=== PATIENT | male | born 1960 | race Two or more races ===

== ENCOUNTER 2024-10-16 15:39 | Inpatient (IN) | payer OTHER ==
[~2024-10-16] VITALS: Ht 172.7 cm; Wt 71.0 kg
[2024-10-16 16:00] VITALS: PULSE 74; RESP 14; O2SAT 99
--- NOTE | 2024-10-16 16:19 | ED.PDOC ---
GI ASSESSMENT HPI Comments 64 y/o M, CRISTIAN, with PMHx of CAD and liver cirrhosis presents to the ED for CC of GI bleed. EMS reports, patient is coming from home where he complains of hematemesis since, 0800 today (10/16/24). Patient states, that he has been experiencing hematemesis with associated symptoms of lower abdominal pain and chills starting today (10/16/24). Patient relays, his last alcoholic drink to have been x5coxym ago. In route to ED, EMS comments on hypotensive reading of 77/59; 400 mL of IVF were given. Patient denies fever, melena, fatigue, weakness, or faintness. No other symptoms or modifying factors present at this time. Chief Complaint: GI Bleed Time Seen by MD: 16:00 Primary Care Provider: NONE Reviewed Notes: Nurses Notes, Marine Equipment Sales Engineer Notes, Medications, Allergies Allergies: Coded Allergies: Penicillins (Verified Allergy, Severe, 10/16/24) Information Source: Patient, Emergency Med Personnel Mode of Arrival: EMS Timing: Hours Duration: Since onset Prehospital treatment: IVF Quality: None Vomitus: Bright Red Bood Stool: Normal Severity: Moderate Recent: None Recent Hx of: None Pain Location: RLQ, LLQ Modifying Factors: Nothing Associated sign and symptoms: Hematemesis, Abdominal Pain Past Medical History PAST MEDICAL HISTORY: CAD, Liver Surgical History: Denies all surgeries Family History Family History: Unknown Social History Smoker: Non-Smoker Alcohol: Heavy Drugs: Denies Drug Use Lives In: Home Constitutional: denies: chills, diaphoresis, fatigue, fever, malaise, sweats, weakness, others EENTM: denies: blurred vision, double vision, ear bleeding, ear discharge, ear drainage, ear pain, ear ringing, eye pain, eye redness, hearing loss, mouth pain, mouth swelling, nasal discharge, nose bleeding, nose congestion, nose pain, photophobia, tearing, throat pain, throat swelling, voice changes, others Respiratory: denies: cough, hemoptysis, orthopnea, SOB at rest, shortness of breath, SOB with excertion, stridor, wheezing, others Cardiovascular: denies: chest pain, dizzy spells, diaphoresis, Dyspnea on exertion, edema, irregular heart beat, left arm pain, lightheadedness, palpitations, PND, syncope, others Gastrointestinal: reports: abdominal pain, hematemesis; denies: abdomen distended, blood streaked bowels, constipated, diarrhea, dysphagia, difficulty swallowing, melena, nausea, poor appetite, poor fluid intake, rectal bleeding, rectal pain, vomiting, others Genitourinary: denies: burning, dysuria, flank pain, frequency, hematuria, incontinence, penile discharge, penile sore, pain, testicle pain, testicle swelling, urgency, others Neurological: denies: dizziness, fainting, headache, left sided numbness, left sided weakness, numbness, paresthesia, pre-existing deficit, right sided numbness, right sided weakness, seizure, speech problems, tingling, tremors, weakness, others Musculoskeletal: denies: back pain, gout, joint pain, joint swelling, muscle pain, muscle stiffness, neck pain, others Integumetry: denies: bruises, change in color, change in hair/nails, dryness, laceration, lesions, lumps, rash, wounds, others Allergic/Immunocompromised: denies: Difficulty Healing, Frequent Infections, Hives, Itching, others Hematologic/Lymphatic: denies: anemia, blood clots, easy bleeding, easy bruising, swollen glands, others Endocrine: denies: excessive hunger, excessive sweating, excessive thirst, excessive urination, flushing, intolerance to cold, intolerance to heat, unexplained weight gain, unexplained weight loss, others Psychiatric: denies: anxiety, bipolar disorder, depression, hopeless, panic disorder, schizophrenia, sleepless, suicidal, others All Other Systems: Reviewed and Negative Physical Exam General Appearance: Moderate Distress HEENT: Pale Conjuntivae (L), Pale Conjuntivae (R), Pharynx Normal, TMs Normal Neck: Full Range of Motion, Non-Tender, Normal, Normal Inspection Respiratory: Chest Non-Tender, Lungs Clear, No Accessory Muscle Use, No Respiratory Distress, Normal Breath Sounds Cardiovascular: No Edema, No JVD, No Murmur, No Gallop, Normal Peripheral Pulses, Regular Rate/Rhythm Breast Exam: Deferred Gastrointestinal: No Organomegaly, Non Tender, No Pulsatile Mass, Normal Bowel Sounds, Soft Genitalia: Deferred Pelvic: Deferred Rectal: Deferred Extremities: No calf tenderness, Normal capillary refill, Normal inspection, Normal range of motion, Non-tender, No pedal edema Musculoskeletal : Apperance: Normal Neurologic: Alert, drug safety specialist II-XII nml as Tested, Motor Weakness, Normal Affect, Normal Mood, No Sensory Deficits Cerebellar Function: Normal Reflexes: Normal Skin: Dry, Pallor, Warm Lymphatic: No Adenopathy Was a procedure done? Was a procedure done?: No GI differential Dx Differential Diagnosis: GI hemorrhage X-Ray, Labs, Meds, VS Vital Signs Date Time Temp Pulse Resp B/P (MAP) Pulse Ox O2 Delivery O2 Flow Rate FiO2 10/16/24 16:00 98.1 75 16 101/32 (55) 75 98.1 10/16/24 16:00 74 14 99 Room Air* 0 21 10/16/24 15:58 98.4 74 16 97/53 (68) 97 98.4 10/16/24 15:50 75 10/16/24 15:40 98.4 74 16 97/53 (68) 97 98.4 Lab Test 10/16/24 16:22 Range/Units White Blood Count 4.7 4.4-10.8 10^3/uL Red Blood Count 3.25 L 4.5-5.90 10^6/uL Hemoglobin 9.4 L 13.5-17.5 g/dL Hematocrit 27.8 L 41.0-53.0 % Mean Corpuscular Volume 85.7 80.0-100.0 fL Mean Corpuscular Hemoglobin 28.9 28.0-32.0 pg Mean Corpuscular Hemoglobin Concent 33.7 32.0-36.0 g/dL Red Cell Distribution Width 21.6 H 11.8-14.3 % Platelet Count 87 L 140-450 10^3/uL Mean Platelet Volume 7.1 6.9-10.8 fL Neutrophils (%) (Auto) 64.4 37.0-80.0 % Lymphocytes (%) (Auto) 24.3 10.0-50.0 % Monocytes (%) (Auto) 10.0 0.0-12.0 % Eosinophils (%) (Auto) 0.5 0.0-7.0 % Basophils (%) (Auto) 0.8 0.0-2.0 % Neutrophils # (Auto) 3.0 1.6-8.6 10 ^3/uL Lymphocytes # (Auto) 1.1 0.4-5.4 10 ^3/uL Monocytes # (Auto) 0.5 0-1.3 10 ^3/uL Eosinophils # (Auto) 0 0-0.8 10 ^3/uL Basophils # (Auto) 0 0-0.2 10 ^3/uL Nucleated Red Blood Cells 0.1 % Prothrombin Time 15.0 H 9.3-11.8 sec Prothrombin Time INR 1.47 H 0.9-1.15 Activated Partial Thromboplast Time 34.7 H 24.5-34.5 SEC Sodium Level 140 136-145 mmol/L Potassium Level 3.6 3.5-5.1 mmol/L Chloride Level 110 H 98-107 mmol/L Carbon Dioxide Level 23 20-31 mmol/L Anion Gap 7 5-15 Blood Urea Nitrogen 15 9-23 mg/dL Creatinine 0.91 0.700-1.30 mg/dL Glomerular Filtration Rate Calc 95 >90 mL/min BUN/Creatinine Ratio 16.5 10.0-20.0 Serum Glucose 100 74-106 mg/dL Calcium Level 8.2 L 8.7-10.4 mg/dL Total Bilirubin 2.1 H 0.2-1.0 mg/dL Aspartate Amino Transferase (AST) 42 H 13-40 U/L Alanine Aminotransferase (ALT) 18 7-40 U/L Alkaline Phosphatase 84 46-116 U/L Total Protein 6.5 5.7-8.2 g/dL Albumin 2.9 L 3.2-4.8 g/dL Current Medications Medications (Trade) Dose Ordered Sig/Luis Route Start Time Stop Time Status Last Admin Sodium Chloride 500 ml @ 500 mls/hr Q1H ONCE IVB 10/16/24 16:00 10/16/24 16:59 DC 10/16/24 16:36 Pantoprazole Sodium 50 ml @ 10 mls/hr Q5H ONCE IV 10/16/24 16:00 10/16/24 20:59 10/16/24 16:37 The patient's CBC shows anemia with a hemoglobin of 9.4 hematocrit 27.8 The INR is 1.47 The chemistry panel is within normal limits The bilirubin is elevated at 2.1 At this time, the patient was being admitted to the hospitalist The patient is given Protonix has a drip secondary to the GI bleed The CAT scan of the abdomen and pelvis shows: IMPRESSION: Limited noncontrast imaging. Cirrhotic appearing liver with trace ascites. Cholelithiasis with Trace ascites limiting evaluation for acute cholecystitis. Right upper quadrant ultrasound should be considered for further evaluation if there is concern for acute cholecystitis. Moderate amount of fecal material within the colon. Bibasilar atelectasis. Mild cardiomegaly with bibasilar ground-glass opacities which may be from mild pulmonary edema. A GI consult will be obtained. Images Reviewed?: Images reviewed and evaluated by me Time of 1ST Reevaluation: 16:30 Reevaluation 1ST: Unchanged Patient Education/Counseling: Diagnosis, Treatment Family Education/Counseling: No Family Present Departure 1 Departure Time of Disposition: 17:25 Impression: Primary Impression: Cholelithiasis Qualified Codes: K80.20 - Calculus of gallbladder without cholecystitis without obstruction Additional Impressions: Upper GI bleed Liver cirrhosis Qualified Codes: K70.31 - Alcoholic cirrhosis of liver with ascites Severe anemia Disposition: ADMITTED INPATIENT Admit to: [facility] Condition: Fair Critical Care Note Critical Care Time?: Yes (55 min-critical care time only) Stability Stability form required: Yes Unstable for transfer: Telemetry monitoring (Telemetry monitoring required), ED Physician Assesment (Clinical assesment) Heart Score Heart Score: Heart Score Response (Comments) Value History N/A 0 EKG N/A 0 Age N/A 0 Risk Factors N/A 0 Troponin N/A 0 Total 0 I personally scribed for REMY MCCARTHY MD ([email or web address]) on 10/16/24 at 16:19. Electronically submitted by Zuleyka Amado ([email or web address]). REMY MCCARTHY MD Oct 16, 2024 16:19
[2024-10-16 16:35] LABS: Basophils # (auto) 0 10 ^3/uL (0-0.2); Basophils % (auto) 0.8 % (0.0-2.0); Eosinophils # (auto) 0 10 ^3/uL (0-0.8); Eosinophils % (auto) 0.5 % (0.0-7.0); Hematocrit 27.8 % (41.0-53.0); Hemoglobin 9.4 g/dL (13.5-17.5); Lymphocytes # (auto) 1.1 10 ^3/uL (0.4-5.4); Lymphocytes % (auto) 24.3 % (10.0-50.0); Mean Corpuscular Hemoglobin 28.9 pg (28.0-32.0); Mean Corpuscular Hgb Conc. 33.7 g/dL (32.0-36.0); Mean Corpuscular Volume 85.7 fL (80.0-100.0); Monocytes # (auto) 0.5 10 ^3/uL (0-1.3); Neutrophils % (auto) 64.4 % (37.0-80.0); Nucleated Red Blood Cells % 0.1 %; Platelet Count (auto) 87 10^3/uL (140-450); Red Blood Cells 3.25 10^6/uL (4.5-5.90); Red Cell Distribution Width 21.6 % (11.8-14.3); White Blood Cell 4.7 10^3/uL (4.4-10.8)
[2024-10-16] MEDS: SODIUM CHLORIDE 0.9% 500 ML IVB ONE (16:36)
[2024-10-16] MEDS: PANTOPRAZOLE 40mg/50ML NS AE 50 ML IV ONE ×2 (16:37→20:45)
[2024-10-16 16:50] LABS: Alanine Aminotransferase 18 U/L (7-40); Alkaline Phosphatase 84 U/L (46-116); Anion Gap 7 (5-15); BUN/Creatinine Ratio 16.5 (10.0-20.0); Blood Urea Nitrogen 15 mg/dL (9-23); Carbon Dioxide 23 mmol/L (20-31); Glucose 100 mg/dL (74-106); Potassium 3.6 mmol/L (3.5-5.1); Sodium 140 mmol/L (136-145); Total Protein 6.5 g/dL (5.7-8.2)
[2024-10-16 16:51] LABS: INR 1.47 (0.9-1.15); Partial Thromboplastin Time 34.7 SEC (24.5-34.5)
[2024-10-16 16:53] LABS: Albumin 2.9 g/dL (3.2-4.8); Aspartate Aminotransferase 42 U/L (13-40); Bilirubin, Total 2.1 mg/dL (0.2-1.0); Calcium 8.2 mg/dL (8.7-10.4); Chloride 110 mmol/L (98-107)
--- NOTE | 2024-10-16 17:09 | DVH ---
Exam: CT CT AB PEL WO CON-NO ORAL OR IV History: pain Comparison Study: None available at time of dictation. TECHNIQUE: Multidetector CT of the abdomen and pelvis without IV contrast. Axial, coronal and sagitta l multiplanar reformats were obtained from the axial data set by the technologist. Radiation Dose Information: CT Dose: CTDI volume is 12.17 mGy. Dose-length product is 740.35 mGy*cm FINDINGS: Bibasilar atelectasis with mild Bibasilar ground-glass opacities. Mild cardiomegaly. Heavy atheroscl erotic calcification of the coronary arteries. Trace ascites. Cholelithiasis with limited evaluation for pericholecystic edema given Trace ascites. Subtle micronod ular contour of the liver with recanalization of the umbilical vein consistent with cirrhosis. Spleen , pancreas and adrenal glands are unremarkable. Mild bilateral perinephric fat stranding. No hydro nephrosis or renal calculi bilaterally. Ureters an d urinary bladder are unremarkable. Prostate is unremarkable. Limited evaluation of the stomach due to inadequate distention. The small bowel loops are unremarkab le. Appendix is unremarkable. Moderate amount of fecal material within the colon. No evidence of intraperitoneal free air. No evidence of aortic aneurysm. Mild atherosclerotic calcif ication of the aorta and bilateral iliacs. No significant mesenteric lymphadenopathy. Tiny fat containing umbilical hernia. Small fat containing bilateral inguinal hernias. Minimal body w all edema. Diffuse demineralization. No destructive osseous lesions are noted. Anterior wedge deformi ty of T12 of unknown chronicity with mild loss of superior vertebral body height. Superior endplate S chmorl node of L2 and T12. Diffuse demineralization. IMPRESSION: Limited noncontrast imaging. Cirrhotic appearing liver with trace ascites. Cholelithiasis with Trace ascites limiting evaluation for acute cholecystitis. Right upper quadrant u ltrasound should be considered for further evaluation if there is concern for acute cholecystitis. Moderate amount of fecal material within the colon. Bibasilar atelectasis. Mild cardiomegaly with bibasilar ground-glass opacities which may be from mild pulmonary edema.
--- NOTE | 2024-10-16 19:57 | ECG ---
[facility] Test Date: 2024-10-16 Test Time: 15:50:26 Pat Name: PUSHPA BELTRAN Department: ED Room: [address] [place] [address] Gender: M Direct Sales Consultant: JOSE : 1960 Requested By: REMY MCCARTHY Order Number: [id number] Reading MD: Stalin Schneider Measurements Intervals [place] Rate: 75 P: 21 MO: 123 QRS: 25 QRSD: 88 T: -3 QT: 426 QTc: 476 Interpretive Statements Sinus rhythm Borderline T abnormalities, inferior leads Borderline prolonged QT interval Electronically Signed On 10-17-2024 13:18:15 PDT by Stalin Schneider Please click the below link to view image of tracing.
[2024-10-16] MEDS ORDERED: NITROGLYCERIN 0.4 MG SL TAB SL PRN (20:45)
[2024-10-16] MEDS: ALBUMIN 25% 100 ML IV ONE (21:01)
--- NOTE | 2024-10-16 21:02 | DVHHP2 ---
History of Present Illness Reason for Visit: gi bleed History of Present Illness 64-year-old male with a significant past medical bed bound history of cirrhosis (likely secondary to hepatitis C and alcohol use), CAD, fatty liver disease, nephrolithiasis, vertebral fracture, and cholelithiasis, who presents with active oral bleeding, hypotension, and confusion. Per the patients sister, who resides with him and his daughter, the patient began bleeding from the mouth and upper gi bleed around 8:00 AM today. The bleeding has been persistent. Additionally, he has complained of lower abdominal pain, decreased oral intake, and has exhibited episodes of confusion and urinary incontinence. The family reports that the patient recently relocated from [place] approximately five weeks ago and has abstained from alcohol use since the move. In the ED, the patient was found to be hypotensive with a BP of 77/39 and was given a 500 mL IV fluid bolus. Labs revealed anemia (Hgb 9.4), thrombocytopenia (platelets 87,000), elevated INR (1.47), elevated total bilirubin (2.1), AST 42, and creatinine 2.9. CT abdomen/pelvis showed cirrhotic liver with trace ascites, gallstones, constipation, mild atelectasis, and pulmonary edema. Given his active bleeding, coagulopathy, and underlying liver disease, GI was consulted for evaluation of possible variceal bleeding or mucosal source. Platelet transfusion was ordered due to thrombocytopenia in the setting of active bleeding. IV antibiotics initiated for possible spontaneous bacterial peritonitis (SBP) or other infectious complications. Blood cultures were sent. IV proton pump inhibitor therapy started, and serial hemoglobin checks have been ordered. will admit and consult gi Past Medical History see hpi Past Surgical History see hpi above Family History Reviewed, non-contributory to the management of this case. Past Social History The patient lives at home, denies smoking, alcohol or illicit drugs abuse. pt stopped drinking approx 1.5 mo ago Review of Systems Constitutional: No: Fever, Chills, Sweats, Weakness, Malaise, Other Eyes: No: Pain, Vision change, Conjunctivae inflammation, Eyelid inflammation, Other, Redness ENT: No: Ear pain, Ear discharge, Nose pain, Nose discharge, Nose congestion, Mouth pain, Mouth swelling, Throat pain, Throat swelling, Other Respiratory: No: Cough, Dry, Shortness of breath, SOB with excertion, Wheezing, Hemoptysis, Pleuritic Pain, Sputum, Wheezing, Other Cardiovascular: No: Chest Pain, Palpitations, Orthopnea, Paroxysmal Noc. Dyspnea, Edema, Lt Headedness, Other Gastrointestinal: Hematochezia, Other (oral bleeding ); No: Nausea, Vomiting, Abdominal Pain, Diarrhea, Constipation, Melena Genitourinary: No Dysuria, No Frequency, No Incontinence, No Hematuria, No Retention, No Other Musculoskeletal: No: other, neck pain, shoulder pain, arm pain, back pain, hand pain, leg pain, foot pain Skin: No: Rash, Lesions, Jaundice, Bruising, Other Neurological: No: Weakness, Numbness, Incoordination, Change in speech, Confusion, Seizures, Other Allergies: Coded Allergies: Penicillins (Verified Allergy, Severe, 10/16/24) Medications Current Medications Medications Dose Ordered Sig/Luis Route Start Time Stop Time Status Last Admin Dose Admin Ondansetron HCl 4 mg Q4HP PRN IV 10/16/24 20:45 UNV Nitroglycerin 0.4 mg Q5MINP PRN SL 10/16/24 20:45 UNV Ciprofloxacin 200 ml @ 200 mls/hr Q12HR IV 10/16/24 22:00 UNV Metronidazole 100 ml @ 100 mls/hr Q8HR IV 10/16/24 22:00 UNV Exam Vital Signs Vital Signs Date Time Temp Pulse Resp B/P (MAP) Pulse Ox O2 Delivery O2 Flow Rate FiO2 10/16/24 19:35 99.2 77 16 117/48 (71) 98 99.2 10/16/24 16:00 Room Air* 0 21 General Appearance: Alert, Other (cooperative able to answer ) HEENT: Atraumatic, Other (mouth dry with dark blood in mouth) Respiratory: Clear to auscultation, Normal air movement Cardiovascular: Regular rate, Normal S1, Normal S2, No murmurs Abdominal: Normal bowel sounds, Soft, No tenderness, No hepatospenomegaly, No masses Extremities: No clubbing, No cyanosis, No edema, Normal pulses, No tenderness/swelling Skin: No rashes, No breakdown, No significant lesion Neuro: Other (weakness to ble ) Psych/Mental Status: Mental status NL, Mood NL Labs/Xrays CT scan of the abdomen pelvis shows cirrhotic liver trace ascites gallstones co nstipation atelectasis mild cardiomegaly opacities pulmonary edema I reviewed labs, imaging CT scan abdomen pelvis, EKG and all diagnostic studies on this patient from ED records and the medical chart Labs Test 10/16/24 16:22 Range/Units White Blood Count 4.7 4.4-10.8 10^3/uL Red Blood Count 3.25 L 4.5-5.90 10^6/uL Hemoglobin 9.4 L 13.5-17.5 g/dL Hematocrit 27.8 L 41.0-53.0 % Mean Corpuscular Volume 85.7 80.0-100.0 fL Mean Corpuscular Hemoglobin 28.9 28.0-32.0 pg Mean Corpuscular Hemoglobin Concent 33.7 32.0-36.0 g/dL Red Cell Distribution Width 21.6 H 11.8-14.3 % Platelet Count 87 L 140-450 10^3/uL Mean Platelet Volume 7.1 6.9-10.8 fL Neutrophils (%) (Auto) 64.4 37.0-80.0 % Lymphocytes (%) (Auto) 24.3 10.0-50.0 % Monocytes (%) (Auto) 10.0 0.0-12.0 % Eosinophils (%) (Auto) 0.5 0.0-7.0 % Basophils (%) (Auto) 0.8 0.0-2.0 % Neutrophils # (Auto) 3.0 1.6-8.6 10 ^3/uL Lymphocytes # (Auto) 1.1 0.4-5.4 10 ^3/uL Monocytes # (Auto) 0.5 0-1.3 10 ^3/uL Eosinophils # (Auto) 0 0-0.8 10 ^3/uL Basophils # (Auto) 0 0-0.2 10 ^3/uL Nucleated Red Blood Cells 0.1 % Prothrombin Time 15.0 H 9.3-11.8 sec Prothrombin Time INR 1.47 H 0.9-1.15 Activated Partial Thromboplast Time 34.7 H 24.5-34.5 SEC Sodium Level 140 136-145 mmol/L Potassium Level 3.6 3.5-5.1 mmol/L Chloride Level 110 H 98-107 mmol/L Carbon Dioxide Level 23 20-31 mmol/L Anion Gap 7 5-15 Blood Urea Nitrogen 15 9-23 mg/dL Creatinine 0.91 0.700-1.30 mg/dL Glomerular Filtration Rate Calc 95 >90 mL/min BUN/Creatinine Ratio 16.5 10.0-20.0 Serum Glucose 100 74-106 mg/dL Calcium Level 8.2 L 8.7-10.4 mg/dL Total Bilirubin 2.1 H 0.2-1.0 mg/dL Aspartate Amino Transferase (AST) 42 H 13-40 U/L Alanine Aminotransferase (ALT) 18 7-40 U/L Alkaline Phosphatase 84 46-116 U/L Total Protein 6.5 5.7-8.2 g/dL Albumin 2.9 L 3.2-4.8 g/dL Assessment/Plan Assessment/Plan 64-year-old male with decompensated cirrhosis, active GI/mucosal bleeding, thrombocytopenia, hypotension, and acute kidney injury. Active GI/Mucosal Bleeding concern for variceal or coagulopathic source Plan: GI consult fu results Start IV Protonix 80 mg bolus, then infusion Platelet transfusion (goal >50K if bleeding), will provide 1 unit since with acute bleeding Monitor H/H q6h Type and cross for possible PRBC transfusion Maintain BP with cautious fluids and vasopressors if needed acute on chronic Decompensated Cirrhosis with ascites and coagulopathy found on ct scan Plan: Monitor LFTs, INR, platelets daily IV cipro and flagyl since allergy to pcn for SBP prophylaxis no need for Paracentesis since small ascites, if ascites worsens consider Avoid nephrotoxic agents acute Thrombocytopenia likely cirrhosis-related Plan: Transfuse platelets due to active bleeding Monitor daily counts acute Hypotension likely multifactorial: volume depletion, sepsis vs. bleeding Plan: Continue fluid resuscitation cautiously Vasopressors if MAP <65 after fluids Monitor lactate and renal function ordered albumin consider levophed Hepatic Encephalopathy confusion and incontinence Plan: ordered ammonia level fu results consider lactulose once able to take po Monitor mental status chronic problems hep c fatty liver kidney stones back fracture cad liver cirrhosis gallbladder stones FEN/ppx IVF: Cautious resuscitation Monitor BMP, correct electrolytes Hepatic diet, fluid/salt restriction if ascites worsens GI: IV Protonix infusion VTE: Hold anticoagulation due to bleeding risk Fall: Fall precautions due to encephalopathy DISPOSITION Admit to medicine for management of decompensated cirrhosis with active bleeding, thrombocytopenia, and hypotension. GI consult for endoscopy. Monitor hemodynamics and labs closely. Plan discussed with: Patient, Other (mother and sister provided information for pt) My Orders Orders - CIERRA MASON DNP Procedure Category Date Status Time Pantoprazole PHA 10/16/24 Logged 40mg/50ml Ns Ae 20:45 Hemoglobin & LAB 10/17/24 Verified Hematocrit 00:00 Hemoglobin & LAB 10/17/24 Verified Hematocrit 06:00 Hemoglobin & LAB 10/17/24 Verified Hematocrit 12:00 Hemoglobin & LAB 10/17/24 Verified Hematocrit 18:00 Pheresis Platelets BBK 10/16/24 Logged 20:31 Vital Signs LEROY 10/16/24 In Process 20:31 Administer Blood LEROY 10/16/24 In Process Products 20:31 Iron Panel LAB 10/16/24 Logged 20:31 Reticulocyte Count LAB 10/16/24 Logged 20:31 Ferritin LAB 10/16/24 Logged 20:31 Vitamin B12 LAB 10/16/24 Logged 20:31 Folate (Folic Acid) LAB 10/16/24 Logged 20:31 Albumin 25% (Albutein) PHA 10/16/24 Logged 20:45 Admit ADMIT 10/16/24 Transmitted 20:31 Allergies LEROY 10/16/24 In Process 20:31 Code Status CODE 10/16/24 Transmitted 20:31 Ondansetron Hcl PHA 10/16/24 Logged (Zofran) 20:45 Complete Blood Count LAB 10/17/24 Verified 04:00 Comprehensive LAB 10/17/24 Verified Metabolic Panel 04:00 Npo (Nothing By DIET 10/17/24 Transmitted Mouth) Diet Breakfast Condition: Stable [facility] 10/16/24 In Process 20:31 Bedrest With Bathroom [facility] 10/16/24 In Process Privileg 20:31 Sequential [facility] 10/16/24 In Process Compression Device Nitroglycerin PHA 10/16/24 Logged Sublingual (Ntrostat 20:45 Stat Ekg For Chest [facility] 10/16/24 In Process Pain 20:31 Notify Of Changes [facility] 10/16/24 In Process From Base 20:31 Oceanography Teacher For [facility] 10/16/24 In Process 24 Hours 20:31 Emergency Dysrhythmia LEROY 10/16/24 In Process Protocol 20:31 Rhythm Strips Once LEROY 10/16/24 In Process Every Shift 20:31 Oxygen By Nasal RT 10/16/24 Transmitted Cannula 20:31 Ammonia LAB 10/16/24 Logged 20:31 Urinalysis LAB 10/16/24 Logged 20:31 Ciprofloxacin PHA 10/16/24 Logged 400mg/200ml (Cipro Iv) 20:45 Ciprofloxacin PHA 10/16/24 Logged 400mg/200ml (Cipro Iv) 22:00 Metronidazole PHA 10/16/24 Logged 500mg/100ml (Flagyl 22:00 Metronidazole PHA 10/16/24 Logged 500mg/100ml (Flagyl 20:45 Blood Culture DONTE 10/16/24 Logged 20:31 Date of Service: Oct 16, 2024 Billing Provider: CIERRA MASON DNP Common Visit Codes: 88244-[id number] INP/OBS CARE (HIGH), [id number] CARE 30- 74 MIN (Total critical care time: Approximately 45 minutes This critical care time included obtaining a history; examining the patient; pulse oximetry; ordering and review of studies; arranging urgent treatment with development of a management plan; evaluation of patient's response to treatment; frequent reassessment; and, discussions with other providers.) CIERRA MASON DNP Oct 16, 2024 21:02
[2024-10-16] MEDS: CIPROFLOXACIN 400MG/200ML 200 ML IV ONE (21:08)
[2024-10-16 21:10] LABS: % Iron Saturation 14.2 % (20-55)
[2024-10-16] MEDS: metroNIDAZOLE 500MG/100ML 100 ML IV ONE (21:34)
[2024-10-16 21:40] LABS: Ferritin 95.3 ng/mL (22-322); Folate (Folic Acid) 16.05 ng/mL (>5.38)
[2024-10-16 23:09] VITALS: PULSE 81; RESP 23; O2SAT 95
[2024-10-17] VITALS (8 sets, daily range): BP systolic 85–99; BP diastolic 38–49; PULSE 21–90; RESP 14–75; TEMP 98.4–101.1; O2SAT 93–100
[2024-10-17 00:34] LABS: Hematocrit 24.3 % (41.0-53.0); Hemoglobin 8.1 g/dL (13.5-17.5)
[2024-10-17] MEDS: NOREPINEPHRINE 8 MG/250ML KIT 250 ML IV SCH (04:15)
[2024-10-17] MEDS: metroNIDAZOLE 500MG/100ML 100 ML IV SCH (06:09)
[2024-10-17] MEDS: CIPROFLOXACIN 400MG/200ML 200 ML IV SCH (09:04)
[2024-10-17] MEDS: OCTREOTIDE ACETATE 500 MCG in SODIUM CHL 0.9% 99 ML IV SCH (10:25)
[2024-10-17 10:49] LABS: Urine Bacteria FEW /hpf (None Seen); Urine Blood 3+ /uL (Negative); Urine Clarity Clear (Clear); Urine Color Yellow (Yellow); Urine Mucus FEW (None Seen); Urine Protein, UAD Negative (Negative); Urine Specific Gravity 1.019 (1.001-1.035); Urine Squamous Epithelial Cell FEW /hpf (<5); Urine Urobilinogen 4 mg/dL (Negative); Urine WBC 4 /HPF (0-3); Urine pH 5.5 (5.0-9.0)
[2024-10-17 11:39] LABS: Basophils # (auto) 0 10 ^3/uL (0-0.2); Basophils % (auto) 0.4 % (0.0-2.0); Eosinophils # (auto) 0 10 ^3/uL (0-0.8); Eosinophils % (auto) 0.3 % (0.0-7.0); Hematocrit 27.5 % (41.0-53.0); Hemoglobin 9.1 g/dL (13.5-17.5); Lymphocytes # (auto) 0.8 10 ^3/uL (0.4-5.4); Lymphocytes % (auto) 14.2 % (10.0-50.0); Mean Corpuscular Hemoglobin 28.4 pg (28.0-32.0); Mean Corpuscular Volume 86.3 fL (80.0-100.0); Monocytes # (auto) 0.4 10 ^3/uL (0-1.3); Monocytes % (auto) 7.5 % (0.0-12.0); Neutrophils # (auto) 4.3 10 ^3/uL (1.6-8.6); Neutrophils % (auto) 77.6 % (37.0-80.0); Nucleated Red Blood Cells % 0.1 %; Red Blood Cells 3.19 10^6/uL (4.5-5.90); White Blood Cell 5.6 10^3/uL (4.4-10.8)
[2024-10-17 11:59] LABS: Red Cell Distribution Width 21.7 % (11.8-14.3)
[2024-10-17 12:00] LABS: Platelet Count (auto) 72 10^3/uL (140-450)
[2024-10-17 12:01] LABS: Alanine Aminotransferase 20 U/L (7-40); Alkaline Phosphatase 74 U/L (46-116); Anion Gap 9 (5-15); BUN/Creatinine Ratio 13.9 (10.0-20.0); Blood Urea Nitrogen 11 mg/dL (9-23); Carbon Dioxide 21 mmol/L (20-31); Glucose 85 mg/dL (74-106); Potassium 3.7 mmol/L (3.5-5.1); Sodium 138 mmol/L (136-145); Total Protein 6.3 g/dL (5.7-8.2)
[2024-10-17 12:02] LABS: Aspartate Aminotransferase 62 U/L (13-40); Bilirubin, Total 2.6 mg/dL (0.2-1.0); Calcium 8.2 mg/dL (8.7-10.4); Chloride 108 mmol/L (98-107)
--- NOTE | 2024-10-17 13:17 | DVHINCON2 ---
GI Consult Consult Note GI consult note Date of Consultation: 10/17/2024 Chief Complaint: GI bleed Referring Physician: Dr. antonio H&P: 64-year-old male admitted with active oral bleeding, hypotension and confusion Patient has past medical history of cirrhosis, CAD, fatty liver disease, nephrolithiasis, vertebral fracture, cholelithiasis Patient is a poor historian. History from chart, RN, and telephone conversation with daughter Marjan at [phone] Patient complains of mild epigastric pain for the past two days. No nausea or vomiting. Admits to spitting up spots of coffee-grounds No melena or red blood in stool Per patient is status post EGD two weeks ago at [facility] History of alcohol use last used five weeks ago Past Medical History: cirrhosis, CAD, fatty liver disease, nephrolithiasis, vertebral fracture, ch olelithiasis Past Surgical History: Social History: NO smoking, heavy drinking ETOH Family History: Unsure Review of Systems: Constitutional: no fever, chill, weight loss HEENT: no eye pain, no hearing loss, no oral lesion, no scleral icterus Heart: no chest pain, no chest pressure Lung: no cough, no dyspnea with exertion Abdomen: see HPI Physical exam: General: NAD, patient is awake Chest: lung shi clear to auscultation Heart: RRR, no murmur Abdomen: non-distended, no tenderness to palpation, +BS Labs: Labs Test 10/17/24 11:28 10/17/24 08:11 10/16/24 21:15 10/16/24 16:22 Range/Units White Blood Count 5.6 4.4-10.8 10^3/uL Red Blood Count 3.19 L 4.5-5.90 10^6/uL Hemoglobin 9.1 L 13.5-17.5 g/dL Hematocrit 27.5 #L 41.0-53.0 % Mean Corpuscular Volume 86.3 80.0-100.0 fL Mean Corpuscular Hemoglobin 28.4 28.0-32.0 pg Mean Corpuscular Hemoglobin Concent 33.0 32.0-36.0 g/dL Red Cell Distribution Width 21.7 H 11.8-14.3 % Platelet Count 72 L 140-450 10^3/uL Mean Platelet Volume 7.3 6.9-10.8 fL Neutrophils (%) (Auto) 77.6 37.0-80.0 % Lymphocytes (%) (Auto) 14.2 10.0-50.0 % Monocytes (%) (Auto) 7.5 0.0-12.0 % Eosinophils (%) (Auto) 0.3 0.0-7.0 % Basophils (%) (Auto) 0.4 0.0-2.0 % Neutrophils # (Auto) 4.3 1.6-8.6 10 ^3/uL Lymphocytes # (Auto) 0.8 0.4-5.4 10 ^3/uL Monocytes # (Auto) 0.4 0-1.3 10 ^3/uL Eosinophils # (Auto) 0 0-0.8 10 ^3/uL Basophils # (Auto) 0 0-0.2 10 ^3/uL Nucleated Red Blood Cells 0.1 % Sodium Level 138 136-145 mmol/L Potassium Level 3.7 3.5-5.1 mmol/L Chloride Level 108 H 98-107 mmol/L Carbon Dioxide Level 21 20-31 mmol/L Anion Gap 9 5-15 Blood Urea Nitrogen 11 9-23 mg/dL Creatinine 0.79 0.700-1.30 mg/dL Glomerular Filtration Rate Calc 100 >90 mL/min BUN/Creatinine Ratio 13.9 10.0-20.0 Serum Glucose 85 74-106 mg/dL Calcium Level 8.2 L 8.7-10.4 mg/dL Total Bilirubin 2.6 H 0.2-1.0 mg/dL Aspartate Amino Transferase (AST) 62 H 13-40 U/L Alanine Aminotransferase (ALT) 20 7-40 U/L Alkaline Phosphatase 74 46-116 U/L Total Protein 6.3 5.7-8.2 g/dL Albumin 3.0 L 3.2-4.8 g/dL Urine Color Yellow Yellow Urine Clarity Clear Clear Urine pH 5.5 5.0-9.0 Urine Specific [place] 1.019 1.001-1.035 Urine Protein Negative Negative Urine Ketones Trace Negative Urine Blood 3+ H Negative /uL Urine Nitrite Negative Negative Urine Bilirubin Negative Negative Urine Urobilinogen 4 H Negative mg/dL Urine Leukocyte Esterase Negative Negative /uL Urine RBC 132 0 - 3 /hpf Urine Microscopic WBC 4 H 0-3 /HPF Urine Squamous Epithelial Cells Few <5 /hpf Urine Bacteria Few H None Seen /hpf Urine Mucus Few None Seen Urine Glucose Normal Normal mg/dL Ammonia 12 11-32 umol/L Reticulocyte Count (auto) 1.54 H 0.5-1.5 % Prothrombin Time 15.0 H 9.3-11.8 sec Prothrombin Time INR 1.47 H 0.9-1.15 Activated Partial Thromboplast Time 34.7 H 24.5-34.5 SEC Iron Level 32 L 65-175 ug/dL Total Iron Binding Capacity 226 L 250-425 ug/dL Percent Iron Saturation 14.2 L 20-55 % Ferritin 95.3 22-322 ng/mL Vitamin B12 Level 1006 H 211-911 pg/mL Folic Acid 16.05 >5.38 ng/mL Imaging: CT abdomen pelvis IMPRESSION: Limited noncontrast imaging. Cirrhotic appearing liver with trace ascites. Cholelithiasis with Trace ascites limiting evaluation for acute cholecystitis. Right upper quadrant ultrasound should be considered for further evaluation if there is concern for acute cholecystitis. Moderate amount of fecal material within the colon. Bibasilar atelectasis. Mild cardiomegaly with bibasilar ground-glass opacities which may be from mild pulmonary edema. Assessment: GI bleed, possible oral bleeding Liver cirrhosis Thrombocytopenia Cholelithiasis Constipation Plan: Discussed with Dr. Palmer Monitor labs transfuse if hemoglobin less than seven Protonix and Carafate Obtain records of EGD from [facility] Clear liquid diet We will continue to monitor the patient, please page GI services if any signs of active bleeding Plan discussed with patient, RN and hospitalist Thank you for this consult Date of Service: Oct 17, 2024 Billing Provider: SHAISTA HOLLOWAY Common Visit Codes: CONSULT ONLY Consultation Codes: [id number] CONSULT <60MIN SHAISTA HOLLOWAY Oct 17, 2024 13:17
[2024-10-17] MEDS ORDERED: AMPICILLIN INJ 1 GM in SODIUM CHL 0.9% 100 ML IV ONE (16:30)
[2024-10-17] MEDS: SODIUM CHLORIDE 0.9% 500 ML IV ONE ×2 (16:30→22:24)
[2024-10-17] MEDS ORDERED: VANCOMYCIN PER PHARMACY 0 MG IV SCH (16:30)
--- NOTE | 2024-10-17 16:47 | DVHPNRES ---
Progress Note Date Seen: Oct 17, 2024 Resident Creating Document: KASHIF BEE RESIDENT Has the PT tested + for MRSA If YES, has PT been informed?: No Medical Necessity Reason Pt with a Central, PICC or Fol: No Medical Necessity Reason History of Present Illness 64-year-old male with a significant past medical bed bound history of cirrhosis (likely secondary to hepatitis C and alcohol use), CAD, fatty liver disease, nephrolithiasis, vertebral fracture, and cholelithiasis, who presents with active oral bleeding, hypotension, and confusion. Per the patients sister, who resides with him and his daughter, the patient began bleeding from the mouth and upper gi bleed around 8:00 AM today. The bleeding has been persistent. Additionally, he has complained of lower abdominal pain, decreased oral intake, and has exhibited episodes of confusion and urinary incontinence. The family reports that the patient recently relocated from [place] approximately five weeks ago and has abstained from alcohol use since the move. In the ED, the patient was found to be hypotensive with a BP of 77/39 and was given a 500 mL IV fluid bolus. Labs revealed anemia (Hgb 9.4), thrombocytopenia (platelets 87,000), elevated INR (1.47), elevated total bilirubin (2.1), AST 42, and creatinine 2.9. CT abdomen/pelvis showed cirrhotic liver with trace ascites, gallstones, constipation, mild atelectasis, and pulmonary edema. Given his active bleeding, coagulopathy, and underlying liver disease, GI was consulted for evaluation of possible variceal bleeding or mucosal source. Platelet transfusion was ordered due to thrombocytopenia in the setting of active bleeding. IV antibiotics initiated for possible spontaneous bacterial peritonitis (SBP) or other infectious complications. Blood cultures were sent. IV proton pump inhibitor therapy started, and serial hemoglobin checks have been ordered. will admit and consult gi Past Medical History: CAD, fatty liver disease, nephrolithiasis, vertebral fracture, and cholelithiasis Past Surgical History: see hpi above Family History: Reviewed, non-contributory to the management of this case. Past Social History: The patient lives at home, denies smoking, alcohol or illicit drugs abuse. pt stopped drinking approx 1.5 mo ago PN: 10/17/2024 At the point of assessment, patient is altered.Nurse by the bedside. Per report, patient is a heavy alcohol users and has been having hematemesis for the past couple of day. Family members said patient has EGD about 4 weeks ago at [facility], but there is not report of that. Also, patient was noted to have fever with temperature ranging from 101.4, 100.7. Patient's blood culture grew Gram Positive Cocci in chains. Family was at the bedside and gave me more information. According to patient's sister, there is a known family history of thrombocytopenia and they are they bleed easily. Patient's sister also mentioned that patient started bleeding after he was placed on aspirin from [place] 2 weeks ago. He takes aspirin due to CAD which is irreparable due to the underlying cirrhosis. Therefore right now medical management only. Subjective Review of Systems Unable to get information on review of systems as patient is ALOC Objective vital signs Vital Sign Date Time Temp Pulse Resp B/P (MAP) Pulse Ox O2 Delivery O2 Flow Rate FiO2 10/17/24 14:00 99.4 85 18 104/48 (66) 95 99.4 10/17/24 07:20 Nasal Cannula* 3 32 Total Intake and Output 10/16/24 10/16/24 10/17/24 15:00 23:00 07:00 Intake Total 950 ml 818 ml Output Total 0 ml Balance 950 ml 818 ml medications Current Medications Medications Dose Ordered Sig/Luis Route Start Time Stop Time Status Last Admin Dose Admin Ondansetron HCl 4 mg Q4HP PRN IV 10/16/24 20:45 Nitroglycerin 0.4 mg Q5MINP PRN SL 10/16/24 20:45 Ciprofloxacin 200 ml @ 200 mls/hr Q12H IV 10/17/24 09:00 10/17/24 09:04 200 MLS/HR Metronidazole 100 ml @ 100 mls/hr Q8H IV 10/17/24 06:00 10/17/24 14:01 100 MLS/HR Octreotide Acetate 500 mcg/ Sodium Chloride 100 ml @ 10 mls/hr Q10H IV 10/17/24 09:00 10/17/24 10:25 10 MLS/HR Examination General Appearance: AOx1 HEENT: Atraumatic, dried blood in his mouth, smelled of blood Respiratory: Clear to auscultation, Normal air movement Cardiovascular: Regular rate, Normal S1, Normal S2, No murmurs, no chest wall tenderness Abdominal: NO distention, no tenderness, Hepatomegaly Extremities: jaundiced,No clubbing, No cyanosis, No edema, muscle wasting Skin: No rashes, No breakdown, No significant lesion Neuro: altered Psych/Mental Status: Unable to assessed laboratory and microbiology Laboratory Tests 10/17/24 11:28 Test 10/17/24 11:28 Range/Units Serum Glucose 85 74-106 mg/dL Microbiology Date/Time Source Procedure Growth Status 10/16/24 21:15 Blood Blood Culture - Preliminary Resulted Problem List/Assessment/Plan Problem List/Assessment/Plan Assessment Sepsis --> blood pressure 88/38, Vasopressors if MAP <65 after fluids --> Confused --> Chest x-ray r/o aspiration --> bacteremia --> N/S Bolus 1 --> vancomycin and Meropenem Lactic acidosis --> Lactic acid 2.7 --> fluid --> repeat in am Hepatic encephalopathy vs Metabolism encephalopathy --> underlining liver cirrhosis secondary to alcohol abuse ? Active GI/Mucosal Bleeding concern for variceal or coagulopathic source Bleeding seem from gum bleed --> octreotid drip suspecting variceal bleeding, though less likely --> GI consult appreciated for EGD --> Start IV Protonix 40mg Monitor H/H Acute on chronic Decompensated Cirrhosis -->Small Ascites --> Coagulopathy -->MELDNa score: 14 -->Maddrey's discriminant function -->Avoid hepatotoxic medications Severe protein calorie malnutrition -->BMI 19.8 --> Albumin 3 Thrombocytopenia --> Family history --> likely cirrhosis-related --> Likely Aspirin -->Transfuse platelets due to active bleeding --> Monitor daily counts Acute Hypotension likely multifactorial: volume depletion, sepsis vs. bleeding Plan: Continue fluid resuscitation cautiously Vasopressors if MAP <65 after fluids Monitor lactate and renal function ordered albumin consider levophed Back pain --> R/o fracture, X-ray --> Toradol --> PT when stable History of Hepatitis C Fatty liver Kidney stone CAD Gallbladder stones Goal of care discussed for 30 minutes;full code Plan discussed + DR. Randolph Plan discussed with: Patient, Daughter, Other (family) My Orders My Orders Orders - KASHIF BEE RESIDENT Procedure Category Date Status Time * Gi Dvh Mine Surveyor CONS 10/17/24 Transmitted 08:46 Sodium Chl 0.9% PHA 10/17/24 In Process (So... W/Octreotide 09:00 Pantoprazole PHA 10/18/24 Transmitted (Protonix) 10:00 NS PHA 10/17/24 Transmitted 16:30 Vancomycin Per PHA 10/17/24 Transmitted Pharmacy 16:30 Ampicillin Ivpb PHA 10/17/24 Transmitted 16:30 Ampicillin Ivpb PHA 10/17/24 Transmitted 18:00 Ceftriaxone Ivpb PHA 10/18/24 Transmitted Rocephin 09:00 Ceftriaxone Ivpb PHA 10/17/24 Transmitted Rocephin 16:30 CC Plasma Assessment Blood Product Administration S: [id number] Date of Service: Oct 17, 2024 Billing Provider: SANDEE RANDOLPH MD Common Visit Codes: [id number] INP/OBS CARE(HIGH) KASHIF BEE RESIDENT Oct 17, 2024 16:47 SANDEE RANDOLPH MD Oct 17, 2024 22:35
[2024-10-17] MEDS ORDERED: VANCOMYCIN 750MG KIT 100 ML IV SCH ×2 (18:00→21:00)
[2024-10-17] MEDS ORDERED: AMPICILLIN INJ 1 GM in SODIUM CHL 0.9% 100 ML IV SCH (18:00)
--- NOTE | 2024-10-17 18:06 | DVH ---
EXAM: XY CHEST XRAY 1 VIEW TECHNIQUE: Single frontal chest radiograph CLINICAL HISTORY: rule out aspiration COMPARISON: None Findings/Impression: Frontal chest radiograph demonstrates no acute osseous or superficial soft tissue abnormalities. The trachea is midline. The cardiac silhouette and mediastinum are within normal limits. Bibasilar atelectasis, [id number]-[id number]-[id number]. Aspiration is not excluded. No pneumothorax or pleural effusions.
[2024-10-17] MEDS ORDERED: ASPI81CH59 PO (18:32)
[2024-10-17] MEDS ORDERED: ATOR40TA52 PO (18:32)
[2024-10-17] MEDS ORDERED: CARV3.1240 PO (18:33)
[2024-10-17] MEDS ORDERED: MID10T GT (18:37)
[2024-10-17] MEDS ORDERED: FURO20TA3 PO (18:37)
[2024-10-17] MEDS ORDERED: NITR0.4S29 SL (18:37)
[2024-10-17] MEDS ORDERED: CHLO25CA10 PO (18:37)
[2024-10-17] MEDS ORDERED: FER325T PO (18:37)
[2024-10-17] MEDS ORDERED: RANO500T3 PO (18:37)
[2024-10-17] MEDS ORDERED: THI100I IJ (18:37)
[2024-10-17] MEDS ORDERED: FOLITAB22 PO (18:37)
[2024-10-17 18:42] LABS: Hematocrit 27.6 % (41.0-53.0); Hemoglobin 9.3 g/dL (13.5-17.5)
[2024-10-17 19:17] LABS: Lactic Acid w/Reflex 2.7 mmol/L (0.4-2.0)
--- NOTE | 2024-10-17 19:31 | DVH ---
EXAM: XY LUMBAR SPINE 3 VIEW INDICATION: SEVERE BACK PAIN COMPARISON: None TECHNIQUE: 2 views of the lumbar spine were obtained. Findings: There is no evidence of spondylolysis or spondylolisthesis. Age-indeterminate mild wedge-shaped compression fracture of T12. No blastic or lytic lesions are appreciated. No radiopaque foreign bodies. No superficial soft tissue abnormalities. Impression: 1. Age-indeterminate mild wedge-shaped compression fracture of T12.
[2024-10-17] MEDS: cefTRIAXone 1GM/50ML D5W 50 ML IV ONE (20:38)
[2024-10-17] MEDS: MEROPENEM 1GM IVPB 50 ML IV ONE (20:59)
[2024-10-17] MEDS: VANCOMYCIN 750MG KIT 100 ML IV SCH (21:15)
[2024-10-17] MEDS ORDERED: SODIUM CHLORIDE 0.9% 1,000 ML IV SCH (22:00)
[2024-10-17] MEDS: ACETAMINOPHEN 325 MG TAB PO ONE (22:15)
[2024-10-18] VITALS (88 sets, daily range): BP systolic 79–126; BP diastolic 29–68; PULSE 63–90; RESP 8–71; TEMP 97.7–98.6; O2SAT 78–100
[2024-10-18 03:53] LABS: Base Excess -6.3 mmol/L (-2.0-3.0)
[2024-10-18 04:10] LABS: Basophils # (auto) 0 10 ^3/uL (0-0.2); Basophils % (auto) 0.6 % (0.0-2.0); Eosinophils # (auto) 0.2 10 ^3/uL (0-0.8); Eosinophils % (auto) 5.5 % (0.0-7.0); Hematocrit 25.2 % (41.0-53.0); Hemoglobin 8.5 g/dL (13.5-17.5); Lymphocytes # (auto) 0.8 10 ^3/uL (0.4-5.4); Lymphocytes % (auto) 21.2 % (10.0-50.0); Mean Corpuscular Hgb Conc. 33.6 g/dL (32.0-36.0); Mean Corpuscular Volume 86.2 fL (80.0-100.0); Monocytes # (auto) 0.4 10 ^3/uL (0-1.3); Monocytes % (auto) 9.3 % (0.0-12.0); Neutrophils # (auto) 2.4 10 ^3/uL (1.6-8.6); Neutrophils % (auto) 63.4 % (37.0-80.0); Nucleated Red Blood Cells % 0.1 %; Platelet Count (auto) 75 10^3/uL (140-450); Red Blood Cells 2.92 10^6/uL (4.5-5.90); Red Cell Distribution Width 21.6 % (11.8-14.3); White Blood Cell 3.8 10^3/uL (4.4-10.8)
[2024-10-18 04:23] LABS: Alanine Aminotransferase 21 U/L (7-40); Alkaline Phosphatase 63 U/L (46-116); Anion Gap 8 (5-15); BUN/Creatinine Ratio 16.7 (10.0-20.0); Blood Urea Nitrogen 12 mg/dL (9-23); Carbon Dioxide 21 mmol/L (20-31); Potassium 3.6 mmol/L (3.5-5.1); Sodium 139 mmol/L (136-145); Total Protein 5.8 g/dL (5.7-8.2)
[2024-10-18 04:25] LABS: INR 1.58 (0.9-1.15); Partial Thromboplastin Time 40.7 SEC (24.5-34.5)
[2024-10-18 04:27] LABS: Lactic Acid w/Reflex 2.3 mmol/L (0.4-2.0)
[2024-10-18 04:30] LABS: Albumin 2.7 g/dL (3.2-4.8); Aspartate Aminotransferase 82 U/L (13-40); Bilirubin, Total 2.5 mg/dL (0.2-1.0); Calcium 8.1 mg/dL (8.7-10.4); Chloride 110 mmol/L (98-107); Glucose 123 mg/dL (74-106)
[2024-10-18] MEDS: SODIUM CHLORIDE 0.9% 1,000 ML IV ONE (04:51)
[2024-10-18] MEDS: MIDODRINE HCL 10 MG TAB PO SCH (05:51)
--- NOTE | 2024-10-18 06:00 | DVH ---
EXAM: XR Chest, 1 View CLINICAL INDICATION: ACUTE RESP DISTRESS TECHNIQUE: Frontal view of the chest. COMPARISON: XY CHEST XRAY 1 VIEW on DOS: 10/17/24 FINDINGS: LUNGS AND PLEURAL SPACES: Right basilar atelectasis or pneumonia. No pneumothorax. HEART: Unremarkable. No cardiomegaly. MEDIASTINUM: Unremarkable. Normal mediastinal contour. BONES/JOINTS: Unremarkable. No acute fracture. OTHER FINDINGS: . . . IMPRESSION: Right basilar atelectasis or pneumonia.
[2024-10-18] MEDS: MEROPENEM 1GM IVPB 50 ML IV SCH ×2 (06:25→16:07)
--- NOTE | 2024-10-18 06:58 | DVH ---
EXAM: US Abdomen Limited, Right Upper Quadrant CLINICAL INDICATION: cholecystitis TECHNIQUE: Real-time ultrasound of the right upper quadrant with image documentation. COMPARISON: None FINDINGS: LIVER: The liver measures up to 12.5 cm. Coarse appearing echotexture. Correlation for underlying hepatocellular disease is recommended. No intrahepatic bile duct dilation. GALLBLADDER: Cholelithiasis. Negative Roman's sign was reported by the bilingual operator. Gallbladder w all measures 3.8 mm thick. COMMON BILE DUCT: Unremarkable as visualized. No stones. No dilation. Common bile duct measures 0.41 cm in diameter. PANCREAS: Unremarkable as visualized. RIGHT KIDNEY: Right kidney measures up to 9.2 cm. No stones. No hydronephrosis. OTHER FINDINGS: . . IMPRESSION: Cholelithiasis with findings equivocal for acute cholecystitis. If indicated, this can be further ev aluated with HIDA scan.
[2024-10-18] MEDS ORDERED: SODIUM CHLORIDE 0.9% 1,000 ML IV SCH (08:15)
--- NOTE | 2024-10-18 08:55 | DVHPN2 ---
Assessment/Plan Assessment/Plan ICU note 64 M bedbound with cirrhosis (alcoholic / HCV), CAD admitted for ALOc and oral bleeding, initially treated as UGIB, more hypotensive overnight, transfered to ICU. Seen today during rounds, on low dose levo, GBUS with stones and thickened wall. surgery consult. altered, haldol PRN, non hepatic encephalopathy symptoms. possible still septic. Physical exam AOx2 blood crusted on lips dry mucous membranes uncooperative clear breath sounds s1 s2 rrr no murmur abdomen distended trace LE edema labs ekg imaging reviewed assessment and plan septic vs mixed shock cholelithiasis with possible cholecystitis gpr bacteremia UGIB vs oral bleeding cirrhosis hep C alcohol use CAD lactic acidosis, type I and II severe protein calorie malnutrition thrombocytopenia vertebal fracture c/w levo, maintain MAP >65 transfuse if Hb <7 surgical consult c/w jairon and vanc daily lactate, likely type 2 ISO cirrhosis vs shock follow cult sens GI consult appreciated diet consult pain management monitor H/H plt c/w IV protonix, octreotide diet cardiac dvt ppx hold ISO bleeding gi ppx not indicated 60 minutes critical care time rendered Plan discussed with: Other My Orders Orders - SANDEE RANDOLPH MD Procedure Category Date Status Time Norepinephrine 8 PHA 10/17/24 In Process Mg/250ml Kit 22:45 Transfer Orders XFER 10/17/24 Transmitted 22:45 Midodrine Tablet PHA 10/18/24 In Process (Proamatine Tablet) 06:00 Gallbladder US 10/18/24 Resulted 06:00 * Surgical Consult CONS 10/18/24 Transmitted Insert Midline ORDERS 10/18/24 Verified 08:51 Date of Service: Oct 18, 2024 Billing Provider: SANDEE RANDOLPH MD Common Visit Codes: [id number] CARE 30-74 MIN SANDEE RANDOLPH MD Oct 18, 2024 08:55
[2024-10-18] MEDS ORDERED: cefTRIAXone 1GM/50ML D5W 50 ML IV SCH (09:00)
[2024-10-18] MEDS ORDERED: PANTOPRAZOLE 40 MG/10 ML VIAL INJ IV SCH (10:00)
[2024-10-18] MEDS: PANTOPRAZOLE 40 MG/10 ML VIAL INJ IV SCH (10:07)
[2024-10-18] MEDS: HALOPERIDOL LACTATE 5 MG/ML INJ VIAL IM PRN (10:49)
--- NOTE | 2024-10-18 10:58 | DVHPN2 ---
Progress Note Date Seen: Oct 18, 2024 Resident Creating Document: DANIEL MIRANDA RESIDENT Has the PT tested + for MRSA If YES, has PT been informed?: No Medical Necessity Reason Pt with a Central, PICC or Fol: No Subjective Review of Systems Patient seen and examined at the bedside. Patient is currently altered so unable to obtain complete ROS. No active GI bleed seen. Discontinue octreotide and changed Protonix to IV b.i.d.. Changes from previous H/P or p: No Changes Objective vital signs Vital Sign Date Time Temp Pulse Resp B/P (MAP) Pulse Ox O2 Delivery O2 Flow Rate FiO2 10/18/24 06:45 77 19 117/59 (78) 10/18/24 06:30 98 10/18/24 06:01 Nasal Cannula* 2 28 10/18/24 03:00 98.1 98.1 Total Intake and Output 10/17/24 10/17/24 10/18/24 14:59 22:59 06:59 Intake Total 340 ml 200 ml 597.50 ml Output Total 300 ml Balance 340 ml 200 ml 297.50 ml medications Current Medications Medications Dose Ordered Sig/Luis Route Start Time Stop Time Status Last Admin Dose Admin Ondansetron HCl 4 mg Q4HP PRN IV 10/16/24 20:45 Nitroglycerin 0.4 mg Q5MINP PRN SL 10/16/24 20:45 Vancomycin HCl 0 ml @ 0 mls/hr UD IV 10/17/24 16:30 Meropenem 50 ml @ 17 mls/hr Q8H IV 10/18/24 06:00 10/18/24 06:25 17 MLS/HR Vancomycin HCl 100 ml @ 100 mls/hr Q8H IV 10/17/24 22:00 10/18/24 05:36 100 MLS/HR Norepinephrine Bitartrate 250 ml @ 3.75 mls/hr Q24H IV 10/17/24 22:45 10/18/24 04:15 3.75 MLS/HR Midodrine 10 mg TID@0600,1200,1800 PO 10/18/24 06:00 Pantoprazole Sodium 40 mg BID IV 10/18/24 10:00 10/18/24 10:07 40 MG Haloperidol Lactate 5 mg Q8HP PRN IM 10/18/24 09:30 Examination Pt is lying on bed General Appearance: confused, Not in acute distress HEENT: Atraumatic, Mucous membranes moist/pink Respiratory: Clear to auscultation, Normal air movement, No added sounds Cardiovascular: Regular rate, Normal S1, Normal S2, No murmurs Abdominal: Active bowel sounds, Soft, no distention, no tenderness Extremities: No edema, Normal pulses, No tenderness/swelling Skin: No Significant rash, except past surgical scars Neuro: sensorimotor deficits none Nurse was there as sharperone during examination laboratory and microbiology Laboratory Tests 10/18/24 03:37 Test 10/18/24 03:37 Range/Units Serum Glucose 123 H 74-106 mg/dL Microbiology Date/Time Source Procedure Growth Status 10/16/24 21:15 Blood Blood Culture - Preliminary Resulted Labs and/or images reviewed: Labs reviewed by me, Image(s) reviewed by me Problem List/Assessment/Plan Problem List/Assessment/Plan GI bleed, possible oral bleeding Liver cirrhosis Thrombocytopenia Cholelithiasis with possible acute cholecystitis Constipation PLAN: DC octreotide Monitor labs transfuse if hemoglobin less than seven Protonix 40 mg IV b.i.d. and Carafate Obtain records of EGD from [facility] Clear liquid diet Surgical consult Rest of the management as per ICU or primary team Please page GI services if any signs of active bleeding Thank you so much for the opportunity to consult on your patient. GI team will follow the patient Case an action plan discussed with Dr. Daniela Palmer. Complex care planning needed total 49 minutes of detailed discussion. Plan discussed with: Patient Dietary Evaluation Review Comments: 1. On CL diet, pt not to go >5 days NPO/CL diet only (Currently Day 2) 2. Recommend timely diet progression to Regular diet, may consider 2gm Na restriction if ascities worsens 3. Monitor BMP/lytes and H/H closely, replete to WNL 4. Will add Ensure Clear TID in the interim to enhance nutritional status (provides 240 kcal, 8 gm pro per carton) Expected Outcomes/Goals: Diet progression, improved clinical status. CC Plasma Assessment Blood Product Administration S: [id number] DANIEL MIRANDA RESIDENT Oct 18, 2024 10:58
[2024-10-18 12:00] LABS: Urine Bacteria FEW /hpf (None Seen); Urine Blood Negative /uL (Negative); Urine Clarity Clear (Clear); Urine Color Yellow (Yellow); Urine Mucus FEW (None Seen); Urine Protein, UAD Negative (Negative); Urine Specific Gravity 1.025 (1.001-1.035); Urine Squamous Epithelial Cell FEW /hpf (<5); Urine Urobilinogen Normal (Negative); Urine WBC 2 /HPF (0-3); Urine pH 5.5 (5.0-9.0)
--- NOTE | 2024-10-18 14:21 | DVHINCON2 ---
Date of service: Oct 18, 2024 Family History: FH: thrombocytopenia Allergies: Coded Allergies: Penicillins (Verified Allergy, Severe, 10/16/24) Home Meds Reported Medications Nitroglycerin (NTROSTAT SUBLINGUAL) 0.4 Mg Sl, 0.4 MG SL PRN, TAB *MAY REPEAT EVERY 5 MINUTES X 3 TOTAL IF NO RELIEF, INITIATE ANALGESIC THERAPY. NOTIFY PHYSICIAN *Do not crush. 10/17/24 Midodrine HCl (Midodrine HCl) 10 Mg Tab, 5 MG GT, TAB 10/17/24 Chlordiazepoxide HCl (Chlordiazepoxide Hydrochl) 25 Mg Cap, 25 MG PO, CAP 10/17/24 Thiamine Hcl (THIAMINE HCL) 100 Mg/Ml Inj, 50 MG IJ, INJ 10/17/24 Ranolazine (Ranolazine ER) 500 Mg Tab, 500 MG PO, TAB 10/17/24 Furosemide (Furosemide) 20 Mg Tab, 20 MG PO, TAB 10/17/24 Folic Gvlq-Fnokpyofnv-Kdjtsjnq (Folbic) Tab, 1 TAB PO DAILY, #90 TAB 1 Refill 10/17/24 Ferrous Sulfate (FERROUS SULFATE) 325 Mg Tb, 325 MG PO, TAB 10/17/24 Carvedilol (Carvedilol) 3.125 Mg Tab, 0.5 TAB PO BID, #60 TAB 3 Refills 10/17/24 Atorvastatin Calcium (ATORVASTATIN CALCIUM) 40 Mg Tab, 1 TAB PO DAILY, #30 TAB 5 Refills 10/17/24 Aspirin (Aspirin Low Dose) 81 Mg Chw, 81 MG PO, TAB.CHEW 10/17/24 Current Medications Current Medications Medications (Trade) Dose Ordered Sig/Luis Route PRN Reason Start Time Stop Time Status Last Admin Pantoprazole Sodium (Protonix) 40 mg DAILY IV 10/18/24 10:00 10/18/24 09:29 DC Vancomycin HCl 0 ml @ 0 mls/hr UD IV 10/17/24 16:30 Ampicillin Sodium 1 gm/Sodium Chloride 100 ml @ 200 mls/hr Q6HR IV 10/17/24 18:00 10/17/24 17:41 DC Ceftriaxone Sodium 50 ml @ 100 mls/hr DAILY@09 IV 10/18/24 09:00 10/17/24 19:16 DC Vancomycin HCl 100 ml @ 100 mls/hr Q8H IV 10/17/24 18:00 10/17/24 20:49 DC Meropenem 50 ml @ 17 mls/hr Q8H IV 10/18/24 06:00 10/18/24 06:25 Vancomycin HCl 100 ml @ 100 mls/hr Q8H IV 10/17/24 21:00 10/17/24 20:50 DC Vancomycin HCl 100 ml @ 100 mls/hr Q8H IV 10/17/24 22:00 10/18/24 05:36 Sodium Chloride 1,000 ml @ 150 mls/hr Q6H40M IV 10/17/24 22:00 10/17/24 22:49 DC Norepinephrine Bitartrate 250 ml @ 3.75 mls/hr Q24H IV 10/17/24 22:45 10/18/24 04:15 Midodrine (Proamatine Tablet) 10 mg TID@0600,1200,1800 PO 10/18/24 06:00 10/18/24 11:05 Sodium Chloride 1,000 ml @ 150 mls/hr Q6H40M IV 10/18/24 08:15 10/18/24 09:34 DC Pantoprazole Sodium (Protonix) 40 mg BID IV 10/18/24 10:00 10/18/24 10:07 Haloperidol Lactate (Haldol) 5 mg Q8HP PRN IM AGITATION 10/18/24 09:30 10/18/24 10:49 Vital Signs Vital Signs Date Time Temp Pulse Resp B/P (MAP) Pulse Ox O2 Delivery O2 Flow Rate FiO2 10/18/24 12:30 78 26 99/52 (68) 97 10/18/24 12:00 Room Air* 0 21 10/18/24 09:01 97.7 97.7 Labs/Diagnostic Data Labs Test 10/18/24 13:59 10/18/24 11:10 10/18/24 06:00 10/18/24 03:43 Range/Units Miscellaneous Referred Test ( Tmp Sent to [facility] Urine Color Yellow Yellow Urine Clarity Clear Clear Urine pH 5.5 5.0-9.0 Urine Specific [place] 1.025 1.001-1.035 Urine Protein Negative Negative Urine Ketones Trace Negative Urine Blood Negative Negative /uL Urine Nitrite Negative Negative Urine Bilirubin Negative Negative Urine Urobilinogen Normal Negative mg/dL Urine Leukocyte Esterase Negative Negative /uL Urine RBC 1 0 - 3 /hpf Urine Microscopic WBC 2 0-3 /HPF Urine Squamous Epithelial Cells Few <5 /hpf Urine Bacteria Few H None Seen /hpf Urine Mucus Few None Seen Urine Glucose Normal Normal mg/dL Lactic Acid Level 2.5 *H 0.4-2.0 mmol/L Blood Gas Specimen Type Arterial Blood Gas Sample Site Right radial Blood Gas Patient Temperature 37.0 Arterial Blood Date Drawn [id number] Arterial Blood pH 7.456 H 7.350-7.450 Arterial Blood Partial Pressure CO2 24.0 L 35.0-48.0 mmHg Arterial Blood Partial Pressure O2 88.0 83.0-108.0 mmHg Arterial Blood HCO3 16.5 L 21.0-28.0 mmol/L Arterial Blood Oxygen Saturation 96.4 94.0-98.0 % Arterial Blood Base Excess -6.3 L -2.0-3.0 mmol/L Arterial Blood Oxyhemoglobin 95.8 94.0-98.0 % Arterial Blood Carboxyhemoglobin 0.6 0.5-1.5 % Arterial Blood Methemoglobin 0.0 0.0-1.5 % Michael Test Yes Blood Gas Total Hemoglobin 8.70 L 13.5-17.5 g/dL Blood Gas Liter Flow 1.00 Blood Gas Modality Nasal cannula FiO2 % 24.0 Specimen Drawn By Test 10/18/24 03:37 10/16/24 16:22 Range/Units White Blood Count 3.8 #L 4.4-10.8 10^3/uL Red Blood Count 2.92 L 4.5-5.90 10^6/uL Hemoglobin 8.5 L 13.5-17.5 g/dL Hematocrit 25.2 L 41.0-53.0 % Mean Corpuscular Volume 86.2 80.0-100.0 fL Mean Corpuscular Hemoglobin 29.0 28.0-32.0 pg Mean Corpuscular Hemoglobin Concent 33.6 32.0-36.0 g/dL Red Cell Distribution Width 21.6 H 11.8-14.3 % Platelet Count 75 L 140-450 10^3/uL Mean Platelet Volume 7.7 6.9-10.8 fL Neutrophils (%) (Auto) 63.4 37.0-80.0 % Lymphocytes (%) (Auto) 21.2 10.0-50.0 % Monocytes (%) (Auto) 9.3 0.0-12.0 % Eosinophils (%) (Auto) 5.5 0.0-7.0 % Basophils (%) (Auto) 0.6 0.0-2.0 % Neutrophils # (Auto) 2.4 1.6-8.6 10 ^3/uL Lymphocytes # (Auto) 0.8 0.4-5.4 10 ^3/uL Monocytes # (Auto) 0.4 0-1.3 10 ^3/uL Eosinophils # (Auto) 0.2 0-0.8 10 ^3/uL Basophils # (Auto) 0 0-0.2 10 ^3/uL Nucleated Red Blood Cells 0.1 % Prothrombin Time 16.0 H 9.3-11.8 sec Prothrombin Time INR 1.58 H 0.9-1.15 Activated Partial Thromboplast Time 40.7 H 24.5-34.5 SEC Sodium Level 139 136-145 mmol/L Potassium Level 3.6 3.5-5.1 mmol/L Chloride Level 110 H 98-107 mmol/L Carbon Dioxide Level 21 20-31 mmol/L Anion Gap 8 5-15 Blood Urea Nitrogen 12 9-23 mg/dL Creatinine 0.72 0.700-1.30 mg/dL Glomerular Filtration Rate Calc 103 >90 mL/min BUN/Creatinine Ratio 16.7 10.0-20.0 Serum Glucose 123 H 74-106 mg/dL Calcium Level 8.1 L 8.7-10.4 mg/dL Total Bilirubin 2.5 H 0.2-1.0 mg/dL Aspartate Amino Transferase (AST) 82 H 13-40 U/L Alanine Aminotransferase (ALT) 21 7-40 U/L Alkaline Phosphatase 63 46-116 U/L Ammonia < 10 L 11-32 umol/L Total Protein 5.8 5.7-8.2 g/dL Albumin 2.7 L 3.2-4.8 g/dL Reticulocyte Count (auto) 1.54 H 0.5-1.5 % Iron Level 32 L 65-175 ug/dL Total Iron Binding Capacity 226 L 250-425 ug/dL Percent Iron Saturation 14.2 L 20-55 % Ferritin 95.3 22-322 ng/mL Vitamin B12 Level 1006 H 211-911 pg/mL Folic Acid 16.05 >5.38 ng/mL Microbiology Date/Time Source Procedure Growth Status 10/16/24 21:15 Blood Blood Culture - Preliminary Resulted Assessment PATIENT WITH DOCUMENTED CIRRHOSIS, IS DISORIENTED AND CONFUSED, ABDOMEN NON TENDER, NON DISTENDED, SUSPECT ALCOHOL INDUCED HEPATITIS. RECOMMEN HIDA SCAN AND IF CHOLECYSTITIS IS DOCUMENTED(DOUBT) WOULD SUGGEST CHOLECYSTOSTOMY, NOT A CANDIDATE FOR AN OPERATION AT THIS FACILITY Plan discussed with: Patient, Other ELISA DELGADILLO MD Oct 18, 2024 14:21
[2024-10-18] MEDS: POTASSIUM CHL 20MEQ/50ML 50 ML IV ONE (19:54)
[2024-10-19] VITALS (61 sets, daily range): BP systolic 79–119; BP diastolic 34–61; PULSE 54–84; RESP 11–27; TEMP 97.1–98.3; O2SAT 92–100
[2024-10-19 03:54] LABS: Basophils # (auto) 0 10 ^3/uL (0-0.2); Basophils % (auto) 0.8 % (0.0-2.0); Eosinophils # (auto) 0.4 10 ^3/uL (0-0.8); Eosinophils % (auto) 10.9 % (0.0-7.0); Hematocrit 25.9 % (41.0-53.0); Hemoglobin 8.6 g/dL (13.5-17.5); Lymphocytes # (auto) 0.5 10 ^3/uL (0.4-5.4); Lymphocytes % (auto) 13.5 % (10.0-50.0); Mean Corpuscular Hemoglobin 28.7 pg (28.0-32.0); Mean Corpuscular Hgb Conc. 33.3 g/dL (32.0-36.0); Mean Corpuscular Volume 86.4 fL (80.0-100.0); Monocytes # (auto) 0.3 10 ^3/uL (0-1.3); Monocytes % (auto) 8.9 % (0.0-12.0); Neutrophils # (auto) 2.4 10 ^3/uL (1.6-8.6); Neutrophils % (auto) 65.9 % (37.0-80.0); Nucleated Red Blood Cells % 0.1 %; Platelet Count (auto) 88 10^3/uL (140-450); Red Cell Distribution Width 21.5 % (11.8-14.3); White Blood Cell 3.7 10^3/uL (4.4-10.8)
[2024-10-19 04:04] LABS: Anion Gap 7 (5-15); Carbon Dioxide 21 mmol/L (20-31); Sodium 139 mmol/L (136-145)
[2024-10-19 04:09] LABS: Chloride 111 mmol/L (98-107)
[2024-10-19 04:10] LABS: BUN/Creatinine Ratio 17.3 (10.0-20.0); Blood Urea Nitrogen 14 mg/dL (9-23)
[2024-10-19 04:11] LABS: Glucose 114 mg/dL (74-106); Magnesium 1.7 mg/dL (1.6-2.6)
[2024-10-19 04:12] LABS: Phosphorus 2.6 mg/dL (2.4-5.1)
[2024-10-19] MEDS: SODIUM CHL 0.9% 50 ML IV ONE (07:58)
[2024-10-19 09:39] LABS: Total Protein 5.7 g/dL (5.7-8.2)
[2024-10-19 09:40] LABS: Albumin 2.6 g/dL (3.2-4.8); Bilirubin, Direct 1.1 mg/dL (<0.3); Bilirubin, Total 2.1 mg/dL (0.2-1.0)
--- NOTE | 2024-10-19 11:30 | DVHPN2 ---
Assessment/Plan Assessment/Plan ICU note 64 M bedbound with cirrhosis (alcoholic / HCV), CAD admitted for ALOc and oral bleeding, initially treated as UGIB, more hypotensive overnight, transfered to ICU. Seen today during rounds, seen by surgery, no surgical management at this point. clinically improving. off pressors, downgrade to telemetry Physical exam AOx2 blood crusted on lips dry mucous membranes uncooperative clear breath sounds s1 s2 rrr no murmur abdomen distended trace LE edema labs ekg imaging reviewed assessment and plan septic vs mixed shock cholelithiasis with possible cholecystitis gpr bacteremia UGIB vs oral bleeding cirrhosis hep C alcohol use CAD lactic acidosis, type I and II severe protein calorie malnutrition thrombocytopenia vertebal fracture c/w levo, maintain MAP >65 transfuse if Hb <7 surgical consult c/w jairon and vanc daily lactate, likely type 2 ISO cirrhosis vs shock follow cult sens GI consult appreciated diet consult pain management monitor H/H plt s/p iv protonix and octreotide, switch to iv ppi midodrine diet cardiac dvt ppx hold ISO bleeding gi ppx not indicated 35 minutes critical care time rendered Plan discussed with: Patient My Orders Orders - SANDEE RANDOLPH MD Procedure Category Date Status Time * Wound Consult CONS 10/18/24 Transmitted 12:31 * Dietary Consult CONS 10/18/24 Transmitted 12:31 Mechanical Soft Diet DIET 10/18/24 Transmitted Dinner Communication Order ORDERS 10/18/24 Transmitted 18:27 Magnesium Sulfate PHA 10/19/24 Logged 1gm/100ml 12:00 Transfer Orders XFER 10/19/24 Transmitted 11:05 Date of Service: Oct 19, 2024 Billing Provider: SANDEE RANDOLPH MD Common Visit Codes: [id number] CARE 30-74 MIN SANDEE RANDOLPH MD Oct 19, 2024 11:30
[2024-10-19] MEDS: MAGNESIUM SULFATE 1GM/100ML 100 ML IV SCH (15:02)
--- NOTE | 2024-10-19 15:45 | DVHPN2 ---
Progress Note Date Seen: Oct 19, 2024 Resident Creating Document: DANIEL MIRANDA RESIDENT Has the PT tested + for MRSA If YES, has PT been informed?: No Medical Necessity Reason Pt with a Central, PICC or Fol: No Subjective Review of Systems Patient seen and examined at the bedside. Patient reported mild improvement in his abdominal pain. Patient is currently tolerating diet and advance as he tolerated. Objective vital signs Vital Sign Date Time Temp Pulse Resp B/P (MAP) Pulse Ox O2 Delivery O2 Flow Rate FiO2 10/19/24 13:15 72 20 91/53 (66) 97 10/19/24 12:00 97.9 97.9 10/19/24 12:00 Room Air* 0 N/A Nasal Cannula* Total Intake and Output 10/18/24 10/18/24 10/19/24 14:59 22:59 06:59 Intake Total 80.00 ml 819.065 ml 400.314 ml Output Total 175 ml 300 ml Balance 80.00 ml 644.065 ml 100.314 ml medications Current Medications Medications Dose Ordered Sig/Luis Route Start Time Stop Time Status Last Admin Dose Admin Ondansetron HCl 4 mg Q4HP PRN IV 10/16/24 20:45 Nitroglycerin 0.4 mg Q5MINP PRN SL 10/16/24 20:45 Vancomycin HCl 0 ml @ 0 mls/hr UD IV 10/17/24 16:30 Vancomycin HCl 100 ml @ 100 mls/hr Q8H IV 10/17/24 22:00 10/19/24 06:27 100 MLS/HR Midodrine 10 mg TID@0600,1200,1800 PO 10/18/24 06:00 10/19/24 13:10 10 MG Pantoprazole Sodium 40 mg BID IV 10/18/24 10:00 10/19/24 10:50 40 MG Haloperidol Lactate 5 mg Q8HP PRN IM 10/18/24 09:30 10/18/24 10:49 5 MG Meropenem 50 ml @ 17 mls/hr Q8H IV 10/18/24 16:00 10/19/24 10:48 17 MLS/HR Examination Pt is lying on bed General Appearance: alert, oriented HEENT: Atraumatic, Mucous membranes moist/pink Respiratory: Clear to auscultation, Normal air movement, No added sounds Cardiovascular: Regular rate, Normal S1, Normal S2, No murmurs Abdominal: Active bowel sounds, Soft, no distention, mild tenderness Extremities: No edema, Normal pulses, No tenderness/swelling Skin: No Significant rash, except past surgical scars Neuro: sensorimotor deficits none Nurse was there as sharperone during examination laboratory and microbiology Laboratory Tests 10/19/24 02:54 Test 10/19/24 02:54 Range/Units Serum Glucose 114 H 74-106 mg/dL Microbiology Date/Time Source Procedure Growth Status 10/18/24 11:10 Voided Urine Urine Culture - Preliminary Resulted 10/18/24 06:00 Blood Blood Culture - Preliminary NO GROWTH AFTER 24 HOURS OF INCUBATION. Resulted 10/18/24 05:00 Sputum Gram Stain - Final Resulted 10/18/24 05:00 Sputum Respiratory Culture - Preliminary Resulted 10/18/24 03:10 Nose MRSA Screen - Final Complete Labs and/or images reviewed: Labs reviewed by me, Image(s) reviewed by me Problem List/Assessment/Plan Problem List/Assessment/Plan GI bleed, possible oral bleeding Liver cirrhosis Thrombocytopenia Cholelithiasis with possible acute cholecystitis Constipation PLAN: DC octreotide Monitor labs transfuse if hemoglobin less than seven Protonix 40 mg IV b.i.d. and Carafate Obtain records of EGD from [facility] Clear liquid diet advance as tolerated Surgical consult, advised HIDA scan but patient is not a suitable candidate for surgery at this facility Rest of the management as per ICU or primary team Please page GI services if any signs of active bleeding Continue conservative management for now. Thank you so much for the opportunity to consult on your patient. GI team will follow the patient Case an action plan discussed with Dr. Daniela Palmer. Complex care planning needed total 49 minutes of detailed discussion. Plan discussed with: Patient Dietary Evaluation Review Comments: 1. On CL diet, pt not to go >5 days NPO/CL diet only (Currently Day 2) 2. Recommend timely diet progression to Regular diet, may consider 2gm Na restriction if ascities worsens 3. Monitor BMP/lytes and H/H closely, replete to WNL 4. Will add Ensure Clear TID in the interim to enhance nutritional status (provides 240 kcal, 8 gm pro per carton) Expected Outcomes/Goals: Diet progression, improved clinical status. CC Plasma Assessment Blood Product Administration S: [id number] DANIEL MIRANDA RESIDENT Oct 19, 2024 15:45
[2024-10-19] MEDS: ONDANSETRON HCL 4 MG/2 ML VIAL IV PRN (20:05)
[2024-10-20] VITALS (8 sets, daily range): BP systolic 89–100; BP diastolic 19–54; PULSE 61–85; RESP 16–20; TEMP 97.2–98.4; O2SAT 93–96
[2024-10-20 06:28] LABS: Potassium 3.9 mmol/L (3.5-5.1); Sodium 139 mmol/L (136-145)
[2024-10-20 06:29] LABS: Anion Gap 8 (5-15); Carbon Dioxide 23 mmol/L (20-31)
[2024-10-20 06:34] LABS: BUN/Creatinine Ratio 21.4 (10.0-20.0); Blood Urea Nitrogen 18 mg/dL (9-23)
[2024-10-20 06:35] LABS: Basophils # (auto) 0 10 ^3/uL (0-0.2); Basophils % (auto) 0.7 % (0.0-2.0); Eosinophils # (auto) 0.3 10 ^3/uL (0-0.8); Eosinophils % (auto) 8.2 % (0.0-7.0); Hematocrit 26.3 % (41.0-53.0); Hemoglobin 8.9 g/dL (13.5-17.5); Lymphocytes # (auto) 1.1 10 ^3/uL (0.4-5.4); Lymphocytes % (auto) 30.6 % (10.0-50.0); Mean Corpuscular Hemoglobin 29.4 pg (28.0-32.0); Mean Corpuscular Hgb Conc. 33.9 g/dL (32.0-36.0); Mean Corpuscular Volume 86.7 fL (80.0-100.0); Monocytes # (auto) 0.4 10 ^3/uL (0-1.3); Monocytes % (auto) 10.2 % (0.0-12.0); Neutrophils # (auto) 1.8 10 ^3/uL (1.6-8.6); Neutrophils % (auto) 50.3 % (37.0-80.0); Nucleated Red Blood Cells % 0.5 %; Platelet Count (auto) 102 10^3/uL (140-450); Red Blood Cells 3.04 10^6/uL (4.5-5.90); White Blood Cell 3.6 10^3/uL (4.4-10.8)
[2024-10-20 06:36] LABS: Phosphorus 3.1 mg/dL (2.4-5.1)
[2024-10-20 06:42] LABS: Calcium 8.1 mg/dL (8.7-10.4); Chloride 108 mmol/L (98-107); Glucose 122 mg/dL (74-106)
[2024-10-20 06:48] LABS: Red Cell Distribution Width 21.7 % (11.8-14.3)
--- NOTE | 2024-10-20 09:41 | DVHPN2 ---
Progress Note Date Seen: Oct 20, 2024 Resident Creating Document: DANIEL MIRANDA RESIDENT Has the PT tested + for MRSA If YES, has PT been informed?: No Medical Necessity Reason Pt with a Central, PICC or Fol: No Subjective Review of Systems Patient seen and examined at the bedside. Patient reported mild improvement in his abdominal pain. Patient is currently tolerating diet and advance as he tolerated.Patient's sitter reported that he had some blood in vomiting last night. Changes from previous H/P or p: No Changes Objective vital signs Vital Sign Date Time Temp Pulse Resp B/P (MAP) Pulse Ox O2 Delivery O2 Flow Rate FiO2 10/20/24 08:00 16 94 Room Air* 0 21 10/20/24 05:44 97.7 74 91/44 (60) 97.7 Total Intake and Output 10/19/24 10/19/24 10/20/24 14:59 22:59 06:59 Intake Total 411 ml 300 ml 390 ml Output Total 500 ml 100 ml Balance 411 ml -200 ml 290 ml medications Current Medications Medications Dose Ordered Sig/Luis Route Start Time Stop Time Status Last Admin Dose Admin Ondansetron HCl 4 mg Q4HP PRN IV 10/16/24 20:45 10/19/24 20:05 4 MG Nitroglycerin 0.4 mg Q5MINP PRN SL 10/16/24 20:45 Vancomycin HCl 0 ml @ 0 mls/hr UD IV 10/17/24 16:30 Vancomycin HCl 100 ml @ 100 mls/hr Q8H IV 10/17/24 22:00 10/20/24 06:03 100 MLS/HR Midodrine 10 mg TID@0600,1200,1800 PO 10/18/24 06:00 10/20/24 06:03 10 MG Pantoprazole Sodium 40 mg BID IV 10/18/24 10:00 10/19/24 22:13 40 MG Haloperidol Lactate 5 mg Q8HP PRN IM 10/18/24 09:30 10/18/24 10:49 5 MG Meropenem 50 ml @ 17 mls/hr Q8H IV 10/18/24 16:00 10/19/24 23:49 17 MLS/HR Examination Pt is lying on bed General Appearance: alert, oriented HEENT: Atraumatic, Mucous membranes moist/pink Respiratory: Clear to auscultation, Normal air movement, No added sounds Cardiovascular: Regular rate, Normal S1, Normal S2, No murmurs Abdominal: Active bowel sounds, Soft, no distention, mild tenderness Extremities: No edema, Normal pulses, No tenderness/swelling Skin: No Significant rash, except past surgical scars Neuro: sensorimotor deficits none Nurse was there as sharperone during examination laboratory and microbiology Laboratory Tests 10/20/24 05:28 Test 10/20/24 05:28 Range/Units Serum Glucose 122 H 74-106 mg/dL Microbiology Date/Time Source Procedure Growth Status 10/18/24 11:10 Voided Urine Urine Culture - Preliminary Resulted 10/18/24 06:00 Blood Blood Culture - Preliminary NO GROWTH AFTER 48 HOURS OF INCUBATION. Resulted 10/18/24 05:00 Sputum Gram Stain - Final Resulted 10/18/24 05:00 Sputum Respiratory Culture - Preliminary Resulted 10/18/24 03:10 Nose MRSA Screen - Final Complete Labs and/or images reviewed: Labs reviewed by me, Image(s) reviewed by me Problem List/Assessment/Plan Problem List/Assessment/Plan GI bleed, possible oral bleeding Liver cirrhosis Thrombocytopenia Cholelithiasis with possible acute cholecystitis Constipation PLAN: Patient may need EGD we will decide over the weekend. DC octreotide Monitor labs transfuse if hemoglobin less than seven Protonix 40 mg IV b.i.d. and Carafate Obtain records of EGD from [facility] Clear liquid diet advance as tolerated Surgical consult, advised HIDA scan but patient is not a suitable candidate for surgery at this facility Rest of the management as per ICU or primary team Please page GI services if any signs of active bleeding Continue conservative management for now. Thank you so much for the opportunity to consult on your patient. GI team will follow the patient Case an action plan discussed with Dr. Daniela Palmer. Complex care planning needed total 49 minutes of detailed discussion. Plan discussed with: Patient Dietary Evaluation Review Comments: 1. On CL diet, pt not to go >5 days NPO/CL diet only (Currently Day 2) 2. Recommend timely diet progression to Regular diet, may consider 2gm Na restriction if ascities worsens 3. Monitor BMP/lytes and H/H closely, replete to WNL 4. Will add Ensure Clear TID in the interim to enhance nutritional status (provides 240 kcal, 8 gm pro per carton) Expected Outcomes/Goals: Diet progression, improved clinical status. CC Plasma Assessment Blood Product Administration S: [id number] DANIEL MIRANDA RESIDENT Oct 20, 2024 09:41
[2024-10-20] MEDS: VANCOMYCIN 1GM/200ML PM 200 ML IV SCH (17:18)
--- NOTE | 2024-10-20 17:26 | DVHPN2 ---
Subjective Update 10/20-GI following, patient remains at his baseline A&O X 2,. He was confused requiring sitter one-to-one. Patient apparently had 1 episode of hematemesis this a.m., we will make GI aware. Continue antibiotics as per primary team plan. Ultrasound right upper quadrant was equivocal for acute coli but findings stone match physical exam, surgery following. Continue present treatment plan. Reviewed: H&P Changes from previous H/P or p: No Changes General: Per HPI Eyes: No Pain, No Vision change, No Conjunctivae inflammation, No Eyelid inflammation, No Other, No Redness ENT: No Ear pain, No Ear discharge, No Nose pain, No Nose discharge, No Nose congestion, No Mouth pain, No Mouth swelling, No Throat pain, No Throat swelling, No Other Cardiovascular: No Chest Pain, No Palpitations, No Orthopnea, No Paroxysmal Noc. Dyspnea, No Edema, No Lt Headedness, No Other Respiratory: No Cough, No Dry, No Shortness of breath, No SOB with excertion, No Wheezing, No Hemoptysis, No Pleuritic Pain, No Sputum, No Other Gastrointestinal: No Nausea, No Vomiting, No Abdominal Pain, No Diarrhea, No Constipation, No Melena; Hematochezia, Other (oral bleeding ) Genitourinary: No Dysuria, No Frequency, No Incontinence, No Hematuria, No Retention, No Other Musculoskeletal: No other, No neck pain, No shoulder pain, No arm pain, No back pain, No hand pain, No leg pain, No foot pain Skin: No Rash, No Lesions, No Jaundice, No Bruising, No Other Objective Vitals Vital Signs Date Time Temp Pulse Resp B/P (MAP) Pulse Ox O2 Delivery O2 Flow Rate FiO2 10/20/24 13:00 98.4 69 17 100/54 (69) 95 98.4 10/20/24 08:00 Room Air* 0 21 Intake/Output Intake and Output 10/20/24 07:00 Intake Total 1101 ml Output Total 600 ml Balance 501 ml Intake Oral 600 ml IV Total 501 ml Output Urine Total 600 ml Exam AOx2 blood crusted on lips dry mucous membranes uncooperative clear breath sounds s1 s2 rrr no murmur abdomen distended trace LE edema Medications Current Medications Medications Dose Ordered Sig/Luis Route Start Time Stop Time Status Last Admin Dose Admin Ondansetron HCl 4 mg Q4HP PRN IV 10/16/24 20:45 10/19/24 20:05 4 MG Nitroglycerin 0.4 mg Q5MINP PRN SL 10/16/24 20:45 Vancomycin HCl 0 ml @ 0 mls/hr UD IV 10/17/24 16:30 Midodrine 10 mg TID@0600,1200,1800 PO 10/18/24 06:00 10/20/24 06:03 10 MG Pantoprazole Sodium 40 mg BID IV 10/18/24 10:00 10/19/24 22:13 40 MG Haloperidol Lactate 5 mg Q8HP PRN IM 10/18/24 09:30 10/18/24 10:49 5 MG Meropenem 50 ml @ 17 mls/hr Q8H IV 10/18/24 16:00 10/20/24 15:10 17 MLS/HR Vancomycin HCl 200 ml @ 200 mls/hr Q12H IV 10/20/24 18:00 10/20/24 17:18 200 MLS/HR Laboratory Results Laboratory Tests 10/20/24 05:28 Chemistry Test 10/20/24 05:28 Calcium Level 8.1 mg/dL (8.7-10.4) L Magnesium Level 2.0 mg/dL (1.6-2.6) Phosphorus Level 3.1 mg/dL (2.4-5.1) Urinalysis Test 10/18/24 11:10 Urine Color Yellow (Yellow) Urine Clarity Clear (Clear) Urine pH 5.5 (5.0-9.0) Urine Specific [place] 1.025 (1.001-1.035) Urine Protein Negative (Negative) Urine Ketones Trace (Negative) Urine Blood Negative /uL (Negative) Urine Nitrite Negative (Negative) Urine Bilirubin Negative (Negative) Urine Urobilinogen Normal mg/dL (Negative) Urine Leukocyte Esterase Negative /uL (Negative) Urine RBC 1 /hpf (0 - 3) Urine Microscopic WBC 2 /HPF (0-3) Urine Squamous Epithelial Cells Few /hpf (<5) Urine Bacteria Few /hpf (None Seen) H Urine Mucus Few (None Seen) Urine Glucose Normal mg/dL (Normal) Microbiology Microbiology Date/Time Source Procedure Growth Status 10/18/24 11:10 Voided Urine Urine Culture - Final Complete 10/18/24 06:00 Blood Blood Culture - Preliminary NO GROWTH AFTER 48 HOURS OF INCUBATION. Resulted 10/18/24 05:00 Sputum Gram Stain - Final Resulted 10/18/24 05:00 Sputum Respiratory Culture - Preliminary Resulted 10/18/24 03:10 Nose MRSA Screen - Final Complete Labs and/or images reviewed: Labs reviewed by me, Image(s) reviewed by me Assessment/Plan Assessment/Plan 10/20-GI following, patient remains at his baseline A&O X 2,. He was confused requiring sitter one-to-one. Patient apparently had 1 episode of hematemesis this a.m., we will make GI aware. Continue antibiotics as per primary team plan. Ultrasound right upper quadrant was equivocal for acute coli but findings stone match physical exam, surgery following. Continue present treatment plan. assessment and plan septic vs mixed shock cholelithiasis with possible cholecystitis gpr bacteremia UGIB vs oral bleeding cirrhosis hep C alcohol use CAD lactic acidosis, type I and II severe protein calorie malnutrition thrombocytopenia vertebal fracture Plan off levophed, maintain MAP >65 transfuse if Hb <7 surgical consult c/w jairon and vanc daily lactate, likely type 2 ISO cirrhosis vs shock follow cult sens GI consult appreciated diet consult pain management monitor H/H plt s/p iv protonix and octreotide, switch to iv ppi midodrine DC octreotide diet cardiac dvt ppx - SCDs gi ppx - on Protonix Tele Plan discussed with: Other Date of Service: Oct 20, 2024 Billing Provider: GIFTY SUÁREZ MD Common Visit Codes: [id number] INP/OBS CARE(HIGH) GIFTY SUÁREZ MD Oct 20, 2024 17:26
[2024-10-21] VITALS (8 sets, daily range): BP systolic 91–111; BP diastolic 43–64; PULSE 59–91; RESP 16–18; TEMP 97.9–98.6; O2SAT 92–96
[2024-10-21 07:50] LABS: Basophils # (auto) 0 10 ^3/uL (0-0.2); Basophils % (auto) 1.2 % (0.0-2.0); Eosinophils # (auto) 0.1 10 ^3/uL (0-0.8); Eosinophils % (auto) 4.2 % (0.0-7.0); Hemoglobin 9.5 g/dL (13.5-17.5); Lymphocytes # (auto) 0.7 10 ^3/uL (0.4-5.4); Lymphocytes % (auto) 21.9 % (10.0-50.0); Mean Corpuscular Hemoglobin 29.4 pg (28.0-32.0); Mean Corpuscular Hgb Conc. 32.6 g/dL (32.0-36.0); Monocytes # (auto) 0.4 10 ^3/uL (0-1.3); Monocytes % (auto) 10.9 % (0.0-12.0); Neutrophils # (auto) 2.1 10 ^3/uL (1.6-8.6); Neutrophils % (auto) 61.8 % (37.0-80.0); Nucleated Red Blood Cells % 0.2 %; Platelet Count (auto) 101 10^3/uL (140-450); Red Blood Cells 3.22 10^6/uL (4.5-5.90); Red Cell Distribution Width 22.9 % (11.8-14.3); White Blood Cell 3.4 10^3/uL (4.4-10.8)
[2024-10-21 08:11] LABS: Alanine Aminotransferase 16 U/L (7-40); Alkaline Phosphatase 83 U/L (46-116); Anion Gap 10 (5-15); BUN/Creatinine Ratio 16.4 (10.0-20.0); Blood Urea Nitrogen 12 mg/dL (9-23); Potassium 3.8 mmol/L (3.5-5.1); Sodium 139 mmol/L (136-145); Total Protein 6.2 g/dL (5.7-8.2)
[2024-10-21 08:15] LABS: Albumin 2.9 g/dL (3.2-4.8); Aspartate Aminotransferase 53 U/L (13-40); Calcium 8.4 mg/dL (8.7-10.4); Carbon Dioxide 20 mmol/L (20-31); Chloride 109 mmol/L (98-107); Glucose 117 mg/dL (74-106)
--- NOTE | 2024-10-21 11:29 | DVHPN2 ---
Subjective Update 10/20-GI following, patient remains at his baseline A&O X 2,. He was confused requiring sitter one-to-one. Patient apparently had 1 episode of hematemesis this a.m., we will make GI aware. Continue antibiotics as per primary team plan. Ultrasound right upper quadrant was equivocal for acute coli but findings stone match physical exam, surgery following. Continue present treatment plan. 10/21 - apperas more agitated today. olanzepine start. deescaalte vanc/jairon to vanc/ctx. banana bag, thiaine, folate start. CPT otherwise. banana bag then d5- halfNS because not taking po intake. gi following. recheck ammonia Reviewed: H&P Changes from previous H/P or p: No Changes General: Per HPI Objective Vitals Vital Signs Date Time Temp Pulse Resp B/P (MAP) Pulse Ox O2 Delivery O2 Flow Rate FiO2 10/21/24 09:00 98.0 83 17 94/46 (62) 94 98.0 10/21/24 08:00 Room Air* 0 21 Intake/Output Intake and Output 10/21/24 07:00 Intake Total 290 ml Output Total 450 ml Balance -160 ml Intake Oral 240 ml IV Total 50 ml Output Urine Total 450 ml Exam AOx2 blood crusted on lips dry mucous membranes uncooperative clear breath sounds s1 s2 rrr no murmur abdomen distended trace LE edema Medications Current Medications Medications Dose Ordered Sig/Luis Route Start Time Stop Time Status Last Admin Dose Admin Ondansetron HCl 4 mg Q4HP PRN IV 10/16/24 20:45 10/19/24 20:05 4 MG Nitroglycerin 0.4 mg Q5MINP PRN SL 10/16/24 20:45 Vancomycin HCl 0 ml @ 0 mls/hr UD IV 10/17/24 16:30 Midodrine 10 mg TID@0600,1200,1800 PO 10/18/24 06:00 10/21/24 05:51 10 MG Pantoprazole Sodium 40 mg BID IV 10/18/24 10:00 10/20/24 22:13 40 MG Haloperidol Lactate 5 mg Q8HP PRN IM 10/18/24 09:30 10/18/24 10:49 5 MG Meropenem 50 ml @ 17 mls/hr Q8H IV 10/18/24 16:00 10/21/24 08:41 17 MLS/HR Vancomycin HCl 200 ml @ 200 mls/hr Q12H IV 10/20/24 18:00 10/20/24 17:18 200 MLS/HR Folic Acid 1 mg/ Magnesium Sulfate 8 meq/ Multivitamins 10 ml/Thiamine HCl 100 mg/Sodium Chloride 1,013.2 ml @ 126.247 mls/hr DAILY@1800 INJ 10/21/24 18:00 UNV Thiamine HCl 300 mg DAILY IV 10/22/24 10:00 10/25/24 09:59 UNV Folic Acid 1 mg/ Dextrose 50.2 ml @ 200.8 mls/ hr DAILY INJ 10/22/24 10:00 10/23/24 09:59 UNV Laboratory Results Laboratory Tests 10/21/24 05:57 Chemistry Test 10/21/24 05:57 Albumin 2.9 g/dL (3.2-4.8) L Calcium Level 8.4 mg/dL (8.7-10.4) L Total Protein 6.2 g/dL (5.7-8.2) LFT Test 10/21/24 05:57 Alanine Aminotransferase (ALT) 16 U/L (7-40) Alkaline Phosphatase 83 U/L (46-116) Aspartate Amino Transferase (AST) 53 U/L (13-40) H Total Bilirubin 2.0 mg/dL (0.2-1.0) H Urinalysis Test 10/18/24 11:10 Urine Color Yellow (Yellow) Urine Clarity Clear (Clear) Urine pH 5.5 (5.0-9.0) Urine Specific [place] 1.025 (1.001-1.035) Urine Protein Negative (Negative) Urine Ketones Trace (Negative) Urine Blood Negative /uL (Negative) Urine Nitrite Negative (Negative) Urine Bilirubin Negative (Negative) Urine Urobilinogen Normal mg/dL (Negative) Urine Leukocyte Esterase Negative /uL (Negative) Urine RBC 1 /hpf (0 - 3) Urine Microscopic WBC 2 /HPF (0-3) Urine Squamous Epithelial Cells Few /hpf (<5) Urine Bacteria Few /hpf (None Seen) H Urine Mucus Few (None Seen) Urine Glucose Normal mg/dL (Normal) Microbiology Microbiology Date/Time Source Procedure Growth Status 10/18/24 11:10 Voided Urine Urine Culture - Final Complete 10/18/24 06:00 Blood Blood Culture - Preliminary NO GROWTH AFTER 72 HOURS OF INCUBATION. Resulted 10/18/24 05:00 Sputum Gram Stain - Final Resulted 10/18/24 05:00 Sputum Respiratory Culture - Preliminary Resulted 10/18/24 03:10 Nose MRSA Screen - Final Complete Labs and/or images reviewed: Labs reviewed by me, Image(s) reviewed by me Assessment/Plan Assessment/Plan 10/20-GI following, patient remains at his baseline A&O X 2,. He was confused requiring sitter one-to-one. Patient apparently had 1 episode of hematemesis this a.m., we will make GI aware. Continue antibiotics as per primary team plan. Ultrasound right upper quadrant was equivocal for acute coli but findings stone match physical exam, surgery following. Continue present treatment plan. 10/21 - apperas more agitated today. olanzepine start. deescaalte vanc/jairon to vanc/ctx. banana bag, thiaine, folate start. CPT otherwise. banana bag then d5- halfNS because not taking po intake. gi following. recheck ammonia assessment and plan septic vs mixed shock cholelithiasis with possible cholecystitis gpr bacteremia UGIB vs oral bleeding cirrhosis hep C alcohol use CAD lactic acidosis, type I and II severe protein calorie malnutrition thrombocytopenia vertebal fracture Plan off levophed, maintain MAP >65 transfuse if Hb <7 surgical consult c/w jairon and vanc daily lactate, likely type 2 ISO cirrhosis vs shock follow cult sens GI consult appreciated diet consult pain management monitor H/H plt s/p iv protonix and octreotide, switch to iv ppi midodrine DC octreotide olanzepine start. deescaalte vanc/jairon to vanc/ctx. thiaine, folate start. diet cardiac dvt ppx - SCDs gi ppx - on Protonix Tele Plan discussed with: Other My Orders Orders - GIFTY SUÁREZ MD Procedure Category Date Status Time Folic Acid... PHA 10/21/24 Logged 18:00 Ammonia LAB 10/21/24 Logged 11:20 Thiamine Inj PHA 10/22/24 Logged 10:00 Folic Acid PHA 10/22/24 Logged 10:00 D5w/Sod Chl 0.45% PHA 10/21/24 Logged (D5w 1/2ns) 11:30 Date of Service: Oct 21, 2024 Billing Provider: GIFTY SUÁREZ MD Common Visit Codes: [id number] INP/OBS CARE(HIGH) GIFTY SUÁREZ MD Oct 21, 2024 11:29
[2024-10-21] MEDS: D5W/SOD CHL 0.45% 1,000 ML IV ONE (11:30)
[2024-10-21] MEDS: OLANZapine 5 MG TAB PO ONE (13:11)
[2024-10-21] MEDS: cefTRIAXone 1GM/50ML D5W 50 ML IV ONE (13:11)
--- NOTE | 2024-10-21 13:40 | DVHPN2 ---
Progress Note - Dictate Date Seen: Oct 21, 2024 Has the PT tested + for MRSA If YES, has PT been informed?: No Medical Necessity Reason Pt with a Central, PICC or Fol: No Subjective Patient seen at bedside, sitter in the room Patient continues to be altered although he was able to communicate in full sentences Patient wanted to know what his plan of treatment was and wanted to know when he could go home No further episodes of GI bleeding were reported ; hemoglobin stable 9.5; and LFTs trending down I reviewed records from [facility]. Patient was recently hospitalized in the beginning of the month to [facility] He had elevated troponins and suspected to have a non-STEMI. No EGD was performed at [place] vital signs Vital Sign Date Time Temp Pulse Resp B/P (MAP) Pulse Ox O2 Delivery O2 Flow Rate FiO2 10/21/24 09:00 98.0 83 17 94/46 (62) 94 98.0 10/21/24 08:00 Room Air* 0 21 Total Intake and Output 10/20/24 10/20/24 10/21/24 15:00 23:00 07:00 Intake Total 290 ml Output Total 450 ml Balance -160 ml medications Current Medications Medications Dose Ordered Sig/Luis Route Start Time Stop Time Status Last Admin Dose Admin Ondansetron HCl 4 mg Q4HP PRN IV 10/16/24 20:45 10/19/24 20:05 4 MG Nitroglycerin 0.4 mg Q5MINP PRN SL 10/16/24 20:45 Vancomycin HCl 0 ml @ 0 mls/hr UD IV 10/17/24 16:30 Pantoprazole Sodium 40 mg BID IV 10/18/24 10:00 10/20/24 22:13 40 MG Haloperidol Lactate 5 mg Q8HP PRN IM 10/18/24 09:30 10/18/24 10:49 5 MG Meropenem 50 ml @ 17 mls/hr Q8H IV 10/18/24 16:00 10/21/24 08:00 17 MLS/HR Vancomycin HCl 200 ml @ 200 mls/hr Q12H IV 10/20/24 18:00 10/20/24 17:18 200 MLS/HR Folic Acid 1 mg/ Magnesium Sulfate 8 meq/ Multivitamins 10 ml/Thiamine HCl 100 mg/Sodium Chloride 1,013.2 ml @ 126.247 mls/hr DAILY@1800 INJ 10/21/24 18:00 10/22/24 09:59 Thiamine HCl 300 mg DAILY IV 10/22/24 10:00 10/25/24 09:59 Folic Acid 1 mg/ Dextrose 50.2 ml @ 200.8 mls/ hr DAILY INJ 10/22/24 10:00 10/23/24 09:59 Ceftriaxone Sodium 50 ml @ 100 mls/hr DAILY@09 IV 10/22/24 09:00 Olanzapine 10 mg DAILY PO 10/22/24 10:00 objective General Appearance: Awake alert somewhat agitated HEENT: Atraumatic, Mucous membranes moist/pink Respiratory: Clear to auscultation, Normal air movement, No added sounds Cardiovascular: Regular rate, Normal S1, Normal S2, No murmurs Abdominal: Active bowel sounds, Soft, no distention, mild tenderness Extremities: No edema, Normal pulses, No tenderness/swelling Skin: No Significant rash, except past surgical scars Neuro: Nonfocal laboratory and microbiology Laboratory Tests 10/21/24 05:57 Test 10/21/24 05:57 Range/Units Serum Glucose 117 H 74-106 mg/dL Problems(with codes): (1) Upper GI bleed (2) Liver cirrhosis (3) Cholelithiasis (4) Coagulopathy (5) Pancytopenia (6) Metabolic encephalopathy Prognosis Plan Likely etiology of liver cirrhosis related to previous alcohol use and possible history of hep C We will check a hepatitis panel in a.m., repeat labs and check PT INR and ammonia Meld score is 14 points which has a good prognosis; Maddr discrimination function 25 also suggestive of good prognosis His ammonia level has been normal Unclear etiology of his metabolic encephalopathy Consider getting CT scan of the head I will be standing by for possible endoscopy if the patient has any recurrent episodes of bleeding Recommend a 2D echo and cardiac evaluated mention because of recent history of elevated troponins and suspected non-STEMI at [facility] Dietary Evaluation Review Comments: 1. On CL diet, pt not to go >5 days NPO/CL diet only (Currently Day 2) 2. Recommend timely diet progression to Regular diet, may consider 2gm Na restriction if ascities worsens 3. Monitor BMP/lytes and H/H closely, replete to WNL 4. Will add Ensure Clear TID in the interim to enhance nutritional status (provides 240 kcal, 8 gm pro per carton) Expected Outcomes/Goals: Diet progression, improved clinical status. Plan discussed with: Patient, Other (Sitter) CC Plasma Assessment Blood Product Administration S: [id number] TRUDY SAMSON MD Oct 21, 2024 13:40
[2024-10-21] MEDS: FOLIC ACID 1 MG, MAGNESIUM SULF SDV 50% 8 MEQ, MULTIPLE VITAMIN 10 ML, THIAMINE INJ 100... INJ SCH (18:00)
[2024-10-22] VITALS (9 sets, daily range): BP systolic 98–116; BP diastolic 54–67; PULSE 77–101; RESP 16–60; TEMP 97.6–98.1; O2SAT 92–96
[2024-10-22] MEDS: cefTRIAXone 1GM/50ML D5W 50 ML IV SCH (08:16)
[2024-10-22] MEDS: FOLIC ACID 1 MG in D5W 5% 50 ML INJ SCH (09:40)
[2024-10-22] MEDS: THIAMINE 100mg/ml INJ (200mg/2ml VIAL) IV SCH (09:44)
[2024-10-22] MEDS: OLANZapine 5 MG TAB PO SCH (09:47)
--- NOTE | 2024-10-22 14:53 | DVHPN2 ---
Progress Note Date Seen: Oct 22, 2024 Resident Creating Document: DANIEL MIRANDA RESIDENT Has the PT tested + for MRSA If YES, has PT been informed?: No Medical Necessity Reason Pt with a Central, PICC or Fol: No Subjective Review of Systems Patient seen at bedside, sitter in the room , Patient continues to be altered. He had elevated troponins and suspected to have a non-STEMI. No EGD was performed at [place] Objective vital signs Vital Sign Date Time Temp Pulse Resp B/P (MAP) Pulse Ox O2 Delivery O2 Flow Rate FiO2 10/22/24 13:12 97.7 99 20 105/67 (80) 96 97.7 10/22/24 08:15 Room Air* 0 21 Total Intake and Output 10/21/24 10/21/24 10/22/24 14:59 22:59 06:59 Intake Total 220 ml 290 ml Output Total 500 ml Balance 220 ml -210 ml medications Current Medications Medications Dose Ordered Sig/Luis Route Start Time Stop Time Status Last Admin Dose Admin Ondansetron HCl 4 mg Q4HP PRN IV 10/16/24 20:45 10/19/24 20:05 4 MG Nitroglycerin 0.4 mg Q5MINP PRN SL 10/16/24 20:45 Vancomycin HCl 0 ml @ 0 mls/hr UD IV 10/17/24 16:30 Pantoprazole Sodium 40 mg BID IV 10/18/24 10:00 10/22/24 09:46 40 MG Haloperidol Lactate 5 mg Q8HP PRN IM 10/18/24 09:30 10/22/24 06:18 5 MG Meropenem 50 ml @ 17 mls/hr Q8H IV 10/18/24 16:00 10/22/24 09:53 17 MLS/HR Vancomycin HCl 200 ml @ 200 mls/hr Q12H IV 10/20/24 18:00 10/21/24 17:15 200 MLS/HR Thiamine HCl 300 mg DAILY IV 10/22/24 10:00 10/25/24 09:59 10/22/24 09:44 300 MG Folic Acid 1 mg/ Dextrose 50.2 ml @ 200.8 mls/ hr DAILY INJ 10/22/24 10:00 10/23/24 09:59 10/22/24 09:40 200.8 MLS/HR Olanzapine 10 mg DAILY PO 10/22/24 10:00 10/22/24 09:47 10 MG Ampicillin Sodium 2 gm/Sodium Chloride 100 ml @ 100 mls/hr Q6HR IV 10/22/24 12:00 UNV Examination General Appearance: Awake , confused, agitated HEENT: Atraumatic, Mucous membranes moist/pink Respiratory: Clear to auscultation, Normal air movement, No added sounds Cardiovascular: Regular rate, Normal S1, Normal S2, No murmurs Abdominal: Active bowel sounds, Soft, no distention, mild tenderness Extremities: No edema, Normal pulses, No tenderness/swelling Skin: No Significant rash, except past surgical scars Neuro: Nonfocal laboratory and microbiology Laboratory Tests 10/21/24 05:57 Test 10/21/24 05:57 Range/Units Serum Glucose 117 H 74-106 mg/dL Microbiology Date/Time Source Procedure Growth Status 10/18/24 11:10 Voided Urine Urine Culture - Final Complete 10/18/24 06:00 Blood Blood Culture - Preliminary NO GROWTH AFTER 72 HOURS OF INCUBATION. Resulted 10/18/24 05:00 Sputum Gram Stain - Final Complete 10/18/24 05:00 Sputum Respiratory Culture - Final Complete 10/18/24 03:10 Nose MRSA Screen - Final Complete Labs and/or images reviewed: Labs reviewed by me, Image(s) reviewed by me Problem List/Assessment/Plan Problem List/Assessment/Plan GI bleed, possible oral bleeding Liver cirrhosis Thrombocytopenia Cholelithiasis with possible acute cholecystitis Constipation PLAN: Likely etiology of liver cirrhosis related to previous alcohol use and possible history of hep C Repeat labs and check PT INR and ammonia Meld score is 14 points which has a good prognosis; [place] discrimination function 25 also suggestive of good prognosis His ammonia level has been normal Unclear etiology of his metabolic encephalopathy Consider getting CT scan of the head, neurology consult to check possible stroke Cardiology consult for possible NSTEMI I will be standing by for possible endoscopy if the patient has any recurrent episodes of bleeding Recommend a 2D echo and cardiac evaluated mention because of recent history of elevated troponins and suspected non-STEMI at [facility] Patient is not stable for EGD at this point Thank you so much for the opportunity to consult on your patient. GI team will follow the patient Case an action plan discussed with Dr. Daniela Palmer. Complex care planning needed total 49 minutes of detailed discussion. Plan discussed with: Patient My Orders My Orders Orders - RUBEN,KHAJA RESIDENT Procedure Category Date Status Time Ammonia LAB 10/22/24 Logged 14:24 Comprehensive LAB 10/22/24 Logged Metabolic Panel 14:24 Dietary Evaluation Review Comments: 1. On CL diet, pt not to go >5 days NPO/CL diet only (Currently Day 2) 2. Recommend timely diet progression to Regular diet, may consider 2gm Na restriction if ascities worsens 3. Monitor BMP/lytes and H/H closely, replete to WNL 4. Will add Ensure Clear TID in the interim to enhance nutritional status (provides 240 kcal, 8 gm pro per carton) Expected Outcomes/Goals: Diet progression, improved clinical status. CC Plasma Assessment Blood Product Administration S: [id number] DANIEL MIRANDA RESIDENT Oct 22, 2024 14:53
--- NOTE | 2024-10-22 20:52 | DVHPN2 ---
Assessment/Plan Assessment/Plan ICU note 64 M bedbound with cirrhosis (alcoholic / HCV), CAD admitted for ALOc and oral bleeding, initially treated as UGIB, more hypotensive overnight, transfered to ICU. Seen today during rounds, seems like ing, covering ampicilin iso GPR in culture, covering empirically for listeria Physical exam AOx2 blood crusted on lips dry mucous membranes uncooperative clear breath sounds s1 s2 rrr no murmur abdomen distended trace LE edema labs ekg imaging reviewed assessment and plan septic vs mixed shock metabolic toxic encep, cannot r/o listeria meningitis cholelithiasis with possible cholecystitis gpr bacteremia UGIB vs oral bleeding cirrhosis hep C alcohol use CAD lactic acidosis, type I and II severe protein calorie malnutrition thrombocytopenia vertebal fracture c/w levo, maintain MAP >65 transfuse if Hb <7 surgical consult c/w jairon and vanc add ampicilin daily lactate, likely type 2 ISO cirrhosis vs shock follow cult sens GI consult appreciated diet consult pain management monitor H/H plt s/p iv protonix and octreotide, switch to iv ppi midodrine IR for LP no EDG in OSH, will discuss with GI if EGD appropriate this admission diet cardiac dvt ppx hold ISO bleeding gi ppx not indicated Plan discussed with: Other My Orders Orders - SANDEE RANDOLPH MD Procedure Category Date Status Time Ampicillin Sod 2gm Inj PHA 10/22/24 Logged 12:00 Date of Service: Oct 22, 2024 Billing Provider: SANDEE RANDOLPH MD Common Visit Codes: [id number] INP/OBS CARE(HIGH) SANDEE RANDOLPH MD Oct 22, 2024 20:52
[2024-10-22] MEDS: AMPICILLIN SOD 2GM INJ 2 GM in SODIUM CHL 0.9% 100 ML IV SCH (21:50)
[2024-10-23] VITALS (9 sets, daily range): BP systolic 92–114; BP diastolic 55–70; PULSE 76–102; RESP 16–18; TEMP 97.8–98.9; O2SAT 95–99
[2024-10-23 07:30] LABS: Basophils # (auto) 0 10 ^3/uL (0-0.2); Basophils % (auto) 0.9 % (0.0-2.0); Lymphocytes # (auto) 0.8 10 ^3/uL (0.4-5.4); Neutrophils # (auto) 1.5 10 ^3/uL (1.6-8.6); Neutrophils % (auto) 51.2 % (37.0-80.0)
[2024-10-23 07:32] LABS: Eosinophils # (auto) 0.3 10 ^3/uL (0-0.8); Eosinophils % (auto) 8.7 % (0.0-7.0); Hematocrit 24.8 % (41.0-53.0); Hemoglobin 8.3 g/dL (13.5-17.5); Lymphocytes % (auto) 26.8 % (10.0-50.0); Mean Corpuscular Hemoglobin 29.3 pg (28.0-32.0); Mean Corpuscular Hgb Conc. 33.6 g/dL (32.0-36.0); Mean Corpuscular Volume 87.1 fL (80.0-100.0); Monocytes # (auto) 0.4 10 ^3/uL (0-1.3); Monocytes % (auto) 12.4 % (0.0-12.0); Nucleated Red Blood Cells % 0.1 %; Platelet Count (auto) 99 10^3/uL (140-450); Red Blood Cells 2.84 10^6/uL (4.5-5.90); Red Cell Distribution Width 22.3 % (11.8-14.3); White Blood Cell 2.9 10^3/uL (4.4-10.8)
[2024-10-23 07:35] LABS: Potassium 3.9 mmol/L (3.5-5.1); Sodium 143 mmol/L (136-145)
[2024-10-23 07:36] LABS: Anion Gap 9 (5-15); Carbon Dioxide 23 mmol/L (20-31)
[2024-10-23 07:41] LABS: BUN/Creatinine Ratio 15.7 (10.0-20.0); Blood Urea Nitrogen 11 mg/dL (9-23); Calcium 8.4 mg/dL (8.7-10.4); Chloride 111 mmol/L (98-107); Glucose 100 mg/dL (74-106)
[2024-10-23] MEDS: FUROSEMIDE 40 MG/4 ML VIAL IV ONE ×2 (10:00→16:00)
--- NOTE | 2024-10-23 14:27 | DVHPN2 ---
Progress Note Date Seen: Oct 23, 2024 Resident Creating Document: DANIEL MIRANDA RESIDENT Has the PT tested + for MRSA If YES, has PT been informed?: No Medical Necessity Reason Pt with a Central, PICC or Fol: No Subjective Review of Systems Patient seen and examined at the bedside. Patient reported no new complaints but patient is mildly altered. Objective vital signs Vital Sign Date Time Temp Pulse Resp B/P (MAP) Pulse Ox O2 Delivery O2 Flow Rate FiO2 10/23/24 12:47 97.8 90 18 103/59 (74) 96 97.8 10/23/24 08:10 Room Air* 0 21 Total Intake and Output 10/22/24 10/22/24 10/23/24 14:59 22:59 06:59 Intake Total 50 ml 550.2 ml 400 ml Output Total 400 ml 300 ml Balance 50 ml 150.2 ml 100 ml medications Current Medications Medications Dose Ordered Sig/Luis Route Start Time Stop Time Status Last Admin Dose Admin Ondansetron HCl 4 mg Q4HP PRN IV 10/16/24 20:45 10/19/24 20:05 4 MG Nitroglycerin 0.4 mg Q5MINP PRN SL 10/16/24 20:45 Vancomycin HCl 0 ml @ 0 mls/hr UD IV 10/17/24 16:30 Pantoprazole Sodium 40 mg BID IV 10/18/24 10:00 10/23/24 09:23 40 MG Haloperidol Lactate 5 mg Q8HP PRN IM 10/18/24 09:30 10/22/24 06:18 5 MG Vancomycin HCl 200 ml @ 200 mls/hr Q12H IV 10/20/24 18:00 10/23/24 05:51 200 MLS/HR Thiamine HCl 300 mg DAILY IV 10/22/24 10:00 10/25/24 09:59 10/23/24 09:23 300 MG Olanzapine 10 mg DAILY PO 10/22/24 10:00 10/23/24 09:24 10 MG Examination Pt is lying on bed General Appearance: Mildly altered and mild distress HEENT: Atraumatic, Mucous membranes moist/pink Respiratory: Clear to auscultation, Normal air movement, No added sounds Cardiovascular: Regular rate, Normal S1, Normal S2, No murmurs Abdominal: Active bowel sounds, Soft, no distention, no tenderness Extremities: No edema, Normal pulses, No tenderness/swelling Skin: No Significant rash, except past surgical scars Nurse was there as sharperone during examination laboratory and microbiology Laboratory Tests 10/23/24 06:56 Test 10/23/24 06:56 Range/Units Serum Glucose 100 74-106 mg/dL Microbiology Date/Time Source Procedure Growth Status 10/18/24 11:10 Voided Urine Urine Culture - Final Complete 10/18/24 06:00 Blood Blood Culture - Final NO GROWTH AFTER 5 DAYS OF INCUBATION. Complete 10/18/24 05:00 Sputum Gram Stain - Final Complete 10/18/24 05:00 Sputum Respiratory Culture - Final Complete 10/18/24 03:10 Nose MRSA Screen - Final Complete Labs and/or images reviewed: Labs reviewed by me, Image(s) reviewed by me Problem List/Assessment/Plan Problem List/Assessment/Plan GI bleed, possible oral bleeding Liver cirrhosis Thrombocytopenia Cholelithiasis with possible acute cholecystitis Constipation PLAN: Likely etiology of liver cirrhosis related to previous alcohol use and possible history of hep C Repeat labs and check PT INR and ammonia Meld score is 14 points which has a good prognosis; Maddrey discrimination function 25 also suggestive of good prognosis His ammonia level has been normal Unclear etiology of his metabolic encephalopathy Consider getting CT scan of the head, neurology consult to check possible stroke Cardiology consult for possible NSTEMI I will be standing by for possible endoscopy if the patient has any recurrent episodes of bleeding Recommend a 2D echo and cardiac evaluated mention because of recent history of elevated troponins and suspected non-STEMI at [facility] Patient is not stable for EGD at this point Thank you so much for the opportunity to consult on your patient. GI team will follow the patient Case an action plan discussed with Dr. Daniela Palmer. Complex care planning needed total 49 minutes of detailed discussion. Plan discussed with: Patient Dietary Evaluation Review Comments: 1. On CL diet, pt not to go >5 days NPO/CL diet only (Currently Day 2) 2. Recommend timely diet progression to Regular diet, may consider 2gm Na restriction if ascities worsens 3. Monitor BMP/lytes and H/H closely, replete to WNL 4. Will add Ensure Clear TID in the interim to enhance nutritional status (provides 240 kcal, 8 gm pro per carton) Expected Outcomes/Goals: Diet progression, improved clinical status. CC Plasma Assessment Blood Product Administration S: [id number] DANIEL MIRANDA RESIDENT Oct 23, 2024 14:27
--- NOTE | 2024-10-23 15:52 | DVHPN2 ---
Assessment/Plan Assessment/Plan progress note 64 M bedbound with cirrhosis (alcoholic / HCV), CAD admitted for ALOc and oral bleeding, initially treated as UGIB, more hypotensive overnight, transfered to floor Seen today during rounds, still confused. decreased UO, will try spot dose lasix. No EGD per GI. bcx updated that it was GPC not rods, dc ampicilin. pending sens Physical exam AOx2 blood crusted on lips dry mucous membranes uncooperative clear breath sounds s1 s2 rrr no murmur abdomen distended trace LE edema labs ekg imaging reviewed assessment and plan septic vs mixed shock metabolic toxic encep dementia? wernickie? cholelithiasis with possible cholecystitis gpr bacteremia UGIB vs oral bleeding cirrhosis hep C alcohol use CAD lactic acidosis, type I and II severe protein calorie malnutrition thrombocytopenia vertebal fracture c/w levo, maintain MAP >65 transfuse if Hb <7 surgical consult c/w jairon and vanc daily lactate, likely type 2 ISO cirrhosis vs shock follow cult sens GI consult appreciated diet consult pain management monitor H/H plt s/p iv protonix and octreotide, switch to iv ppi midodrine no EGD per GI diet cardiac dvt ppx hold ISO bleeding gi ppx not indicated Plan discussed with: Other My Orders Orders - SANDEE RANDOLPH MD Procedure Category Date Status Time Furosemide Injection PHA 10/23/24 Logged (Lasix Injection) 15:45 Date of Service: Oct 23, 2024 Billing Provider: SANDEE RANDOLPH MD Common Visit Codes: [id number] INP/OBS CARE(HIGH) SANDEE RANDOLPH MD Oct 23, 2024 15:52
[2024-10-24] VITALS (8 sets, daily range): BP systolic 75–111; BP diastolic 44–59; PULSE 74–116; RESP 16–20; TEMP 98–98.7; O2SAT 90–97
[2024-10-24 07:13] LABS: Basophils # (auto) 0 10 ^3/uL (0-0.2); Basophils % (auto) 0.6 % (0.0-2.0); Eosinophils # (auto) 0.1 10 ^3/uL (0-0.8); Eosinophils % (auto) 2.6 % (0.0-7.0); Hematocrit 28.2 % (41.0-53.0); Hemoglobin 9.4 g/dL (13.5-17.5); Mean Corpuscular Hemoglobin 29.3 pg (28.0-32.0); Mean Corpuscular Hgb Conc. 33.4 g/dL (32.0-36.0); Mean Corpuscular Volume 87.8 fL (80.0-100.0); Monocytes # (auto) 0.4 10 ^3/uL (0-1.3); Monocytes % (auto) 10.5 % (0.0-12.0); Neutrophils # (auto) 2.2 10 ^3/uL (1.6-8.6); Neutrophils % (auto) 59.3 % (37.0-80.0); Nucleated Red Blood Cells % 0.1 %; Red Blood Cells 3.21 10^6/uL (4.5-5.90); Red Cell Distribution Width 22.4 % (11.8-14.3); White Blood Cell 3.7 10^3/uL (4.4-10.8)
[2024-10-24 07:14] LABS: Platelet Count (auto) 117 10^3/uL (140-450)
--- NOTE | 2024-10-24 10:10 | DVHPN2 ---
Progress Note Date Seen: Oct 24, 2024 Resident Creating Document: DANIEL MIRANDA RESIDENT Has the PT tested + for MRSA If YES, has PT been informed?: No Medical Necessity Reason Pt with a Central, PICC or Fol: No Subjective Review of Systems Patient seen and examined at the bedside. Patient is agitated and still confused. No EGD for now. Objective vital signs Vital Sign Date Time Temp Pulse Resp B/P (MAP) Pulse Ox O2 Delivery O2 Flow Rate FiO2 10/24/24 01:00 98.7 99 17 111/55 (73) 95 98.7 10/23/24 20:00 Room Air* 0 N/A Nasal Cannula* Total Intake and Output 10/23/24 10/23/24 10/24/24 15:00 23:00 07:00 Intake Total 100 ml 350 ml 513 ml Output Total 450 ml 840 ml Balance 100 ml -100 ml -327 ml medications Current Medications Medications Dose Ordered Sig/Luis Route Start Time Stop Time Status Last Admin Dose Admin Ondansetron HCl 4 mg Q4HP PRN IV 10/16/24 20:45 10/19/24 20:05 4 MG Nitroglycerin 0.4 mg Q5MINP PRN SL 10/16/24 20:45 Vancomycin HCl 0 ml @ 0 mls/hr UD IV 10/17/24 16:30 Pantoprazole Sodium 40 mg BID IV 10/18/24 10:00 10/23/24 21:35 40 MG Haloperidol Lactate 5 mg Q8HP PRN IM 10/18/24 09:30 10/24/24 04:43 5 MG Vancomycin HCl 200 ml @ 200 mls/hr Q12H IV 10/20/24 18:00 10/23/24 18:36 200 MLS/HR Thiamine HCl 300 mg DAILY IV 10/22/24 10:00 10/25/24 09:59 10/23/24 09:23 300 MG Olanzapine 10 mg DAILY PO 10/22/24 10:00 10/23/24 09:24 10 MG Midodrine 10 mg TID@0600,1200,1800 PO 10/24/24 12:00 Examination Pt is lying on bed General Appearance: Mildly altered and agitated HEENT: Atraumatic, Mucous membranes moist/pink Respiratory: Clear to auscultation, Normal air movement, No added sounds Cardiovascular: Regular rate, Normal S1, Normal S2, No murmurs Abdominal: Active bowel sounds, Soft, no distention, no tenderness Extremities: No edema, Normal pulses, No tenderness/swelling Skin: No Significant rash, except past surgical scars Nurse was there as sharperone during examination laboratory and microbiology Laboratory Tests 10/24/24 05:47 10/23/24 06:56 Test 10/23/24 06:56 Range/Units Serum Glucose 100 74-106 mg/dL Microbiology Date/Time Source Procedure Growth Status 10/18/24 11:10 Voided Urine Urine Culture - Final Complete 10/18/24 06:00 Blood Blood Culture - Final NO GROWTH AFTER 5 DAYS OF INCUBATION. Complete 10/18/24 05:00 Sputum Gram Stain - Final Complete 10/18/24 05:00 Sputum Respiratory Culture - Final Complete 10/18/24 03:10 Nose MRSA Screen - Final Complete Labs and/or images reviewed: Labs reviewed by me, Image(s) reviewed by me Problem List/Assessment/Plan Problem List/Assessment/Plan GI bleed, possible oral bleeding Liver cirrhosis Thrombocytopenia Cholelithiasis with possible acute cholecystitis Constipation PLAN: Likely etiology of liver cirrhosis related to previous alcohol use and possible history of hep C Repeat labs and check PT INR and ammonia Meld score is 14 points which has a good prognosis; Maddrey discrimination function 25 also suggestive of good prognosis His ammonia level has been normal Unclear etiology of his metabolic encephalopathy Consider getting CT scan of the head, neurology consult to check possible stroke Cardiology consult for possible NSTEMI I will be standing by for possible endoscopy if the patient has any recurrent episodes of bleeding Recommend a 2D echo and cardiac evaluated mention because of recent history of elevated troponins and suspected non-STEMI at [facility] Patient is not stable for EGD at this point Thank you so much for the opportunity to consult on your patient. GI team will follow the patient Case an action plan discussed with Dr. Daniela Palmer. Complex care planning needed total 49 minutes of detailed discussion. Plan discussed with: Other (RN) Dietary Evaluation Review Comments: 1. On CL diet, pt not to go >5 days NPO/CL diet only (Currently Day 2) 2. Recommend timely diet progression to Regular diet, may consider 2gm Na restriction if ascities worsens 3. Monitor BMP/lytes and H/H closely, replete to WNL 4. Will add Ensure Clear TID in the interim to enhance nutritional status (provides 240 kcal, 8 gm pro per carton) Expected Outcomes/Goals: Diet progression, improved clinical status. CC Plasma Assessment Blood Product Administration S: [id number] DANIEL MIRANDA RESIDENT Oct 24, 2024 10:10
[2024-10-24] MEDS: MIDODRINE HCL 10 MG TAB PO SCH (11:04)
--- NOTE | 2024-10-24 20:58 | DVHPN2 ---
Assessment/Plan Assessment/Plan progress note 64 M bedbound with cirrhosis (alcoholic / HCV), CAD admitted for ALOc and oral bleeding, initially treated as UGIB, more hypotensive overnight, transfered to floor Seen today during rounds, discussed with family, currently will continue with empiric iv abx. patient with probably cholcystitis e in imaging, seen by surgery however negative forrest and clinical improvement. persistence in ams will get HIDA to see if cholecystostomy will benefit, otherwise will continue with conservative management. symptomatology of ams fits wernickie encephalopathy. Physical exam AOx2 blood crusted on lips dry mucous membranes uncooperative clear breath sounds s1 s2 rrr no murmur abdomen distended trace LE edema labs ekg imaging reviewed assessment and plan septic vs mixed shock metabolic toxic encep dementia? wernickie? cholelithiasis with possible cholecystitis gpr bacteremia UGIB vs oral bleeding cirrhosis hep C alcohol use CAD lactic acidosis, type I and II severe protein calorie malnutrition thrombocytopenia vertebal fracture c/w levo, maintain MAP >65 transfuse if Hb <7 surgical consult c/w jairon and vanc daily lactate, likely type 2 ISO cirrhosis vs shock follow cult sens GI consult appreciated diet consult pain management monitor H/H plt s/p iv protonix and octreotide, switch to iv ppi midodrine no EGD per GI diet cardiac dvt ppx hold ISO bleeding gi ppx not indicated Plan discussed with: Other My Orders Orders - SANDEE RANDOLPH MD Procedure Category Date Status Time Midodrine Tablet PHA 10/24/24 In Process (Proamatine Tablet) 12:00 Nm Hida Scan NM 10/24/24 Logged 09:20 Date of Service: Oct 24, 2024 Billing Provider: SANDEE RANDOLPH MD Common Visit Codes: [id number] INP/OBS CARE(HIGH) SANDEE RANDOLPH MD Oct 24, 2024 20:58
[2024-10-25 05:00] VITALS: BP 84/44; PULSE 74; RESP 16; TEMP 98.6; O2SAT 94
[2024-10-25 08:00] VITALS: PULSE 88
[2024-10-25 09:00] VITALS: BP 83/28; PULSE 73; RESP 16; TEMP 97.3; O2SAT 95
--- NOTE | 2024-10-25 11:01 | DVH ---
Procedure: TX NM HIDA SCAN Exam Date: 10/25/2024 08:48 AM Clinical History: acute cholecystitis Nuclear Medicine Hepatobiliary Scan. Technique: Following the intravenous administration of 6 mCi of technetium 99m labeled Choletec multiple planar abdominal planar images were obtained in anterior projection in 5 minute intervals for45 minutes . Ri ght lateral images were obtained at 45 minutes after injection. Findings: The liver appears grossly normal in size. There is no abnormal persistence of the cardiac or blood po ol activity. There is prompt visualization of the gallbladder and excretion of activity into the smal l bowel. Impression: Unremarkable hepatobiliary study without evidence of acute cholecystitis.
--- NOTE | 2024-10-25 11:02 | DVHPN2 ---
Progress Note Date Seen: October 25, 2024 Resident Creating Document: DANIEL MIRANDA RESIDENT Has the PT tested + for MRSA If YES, has PT been informed?: No Medical Necessity Reason Pt with a Central, PICC or Fol: No Subjective Review of Systems Patient seen and examined at the bedside. Patient is agitated and still confused. Changes from previous H/P or p: No Changes Objective vital signs Vital Sign Date Time Temp Pulse Resp B/P (MAP) Pulse Ox O2 Delivery O2 Flow Rate FiO2 10/25/24 09:00 97.3 73 16 83/28 (46) 95 97.3 10/24/24 20:00 Room Air* 0 N/A Nasal Cannula* Total Intake and Output 10/24/24 10/24/24 10/25/24 14:59 22:59 06:59 Intake Total 233 ml 320 ml 150 ml Output Total 400 ml 550 ml Balance 233 ml -80 ml -400 ml medications Current Medications Medications Dose Ordered Sig/Luis Route Start Time Stop Time Status Last Admin Dose Admin Ondansetron HCl 4 mg Q4HP PRN IV 10/16/24 20:45 10/19/24 20:05 4 MG Nitroglycerin 0.4 mg Q5MINP PRN SL 10/16/24 20:45 Vancomycin HCl 0 ml @ 0 mls/hr UD IV 10/17/24 16:30 Pantoprazole Sodium 40 mg BID IV 10/18/24 10:00 10/24/24 22:56 40 MG Haloperidol Lactate 5 mg Q8HP PRN IM 10/18/24 09:30 10/24/24 15:28 5 MG Vancomycin HCl 200 ml @ 200 mls/hr Q12H IV 10/20/24 18:00 10/25/24 06:39 200 MLS/HR Olanzapine 10 mg DAILY PO 10/22/24 10:00 10/24/24 11:05 10 MG Midodrine 10 mg TID@0600,1200,1800 PO 10/24/24 12:00 10/24/24 11:04 10 MG Examination Pt is lying on bed General Appearance: Mildly altered and agitated HEENT: Atraumatic, Mucous membranes moist/pink Respiratory: Clear to auscultation, Normal air movement, No added sounds Cardiovascular: Regular rate, Normal S1, Normal S2, No murmurs Abdominal: Active bowel sounds, Soft, no distention, no tenderness Extremities: No edema, Normal pulses, No tenderness/swelling Skin: No Significant rash, except past surgical scars Nurse was there as sharperone during examination laboratory and microbiology Laboratory Tests 10/24/24 05:47 10/23/24 06:56 Test 10/23/24 06:56 Range/Units Serum Glucose 100 74-106 mg/dL Microbiology Date/Time Source Procedure Growth Status 10/18/24 11:10 Voided Urine Urine Culture - Final Complete 10/18/24 06:00 Blood Blood Culture - Final NO GROWTH AFTER 5 DAYS OF INCUBATION. Complete 10/18/24 05:00 Sputum Gram Stain - Final Complete 10/18/24 05:00 Sputum Respiratory Culture - Final Complete 10/18/24 03:10 Nose MRSA Screen - Final Complete Labs and/or images reviewed: Labs reviewed by me, Image(s) reviewed by me Problem List/Assessment/Plan Problem List/Assessment/Plan GI bleed, possible oral bleeding Liver cirrhosis Metabolic encephalopathy ?Wernicke's Thrombocytopenia Cholelithiasis with possible acute cholecystitis Constipation PLAN: Likely etiology of liver cirrhosis related to previous alcohol use and possible history of hep C Repeat labs and check PT INR and ammonia Meld score is 14 points which has a good prognosis; Maddrey discrimination function 25 also suggestive of good prognosis His ammonia level has been normal Cardiology consult for possible NSTEMI I will be standing by for possible endoscopy if the patient has any recurrent episodes of bleeding Recommend a 2D echo and cardiac evaluated mention because of recent history of elevated troponins and suspected non-STEMI at [facility] Patient is not stable for EGD at this point Thank you so much for the opportunity to consult on your patient. GI team will follow the patient Case an action plan discussed with Dr. Daniela Palmer. Complex care planning needed total 49 minutes of detailed discussion. Plan discussed with: Patient Dietary Evaluation Review Comments: 1. On CL diet, pt not to go >5 days NPO/CL diet only (Currently Day 2) 2. Recommend timely diet progression to Regular diet, may consider 2gm Na restriction if ascities worsens 3. Monitor BMP/lytes and H/H closely, replete to WNL 4. Will add Ensure Clear TID in the interim to enhance nutritional status (provides 240 kcal, 8 gm pro per carton) Expected Outcomes/Goals: Diet progression, improved clinical status. CC Plasma Assessment Blood Product Administration S: [id number] RUBEN,KHAJA RESIDENT October 25, 2024 11:02
[2024-10-25 13:00] VITALS: BP 89/48; PULSE 70; RESP 16; TEMP 98.1; O2SAT 94
--- NOTE | 2024-10-25 14:10 | DVHPN2 ---
Assessment/Plan Assessment/Plan progress note 64 M bedbound with cirrhosis (alcoholic / HCV), CAD admitted for ALOc and oral bleeding, initially treated as UGIB, more hypotensive overnight, transfered to floor Seen today during rounds, adding midodrine, oobtc. hida with no acute cholecystitis. blood culture showed abiotrophia defectiva, rule out e ndocarditis, echo Physical exam AOx2 blood crusted on lips dry mucous membranes uncooperative clear breath sounds s1 s2 rrr no murmur abdomen distended trace LE edema labs ekg imaging reviewed assessment and plan septic vs mixed shock metabolic toxic encep dementia? wernickie? cholelithiasis with possible cholecystitis gpr bacteremia UGIB vs oral bleeding cirrhosis hep C alcohol use CAD lactic acidosis, type I and II severe protein calorie malnutrition thrombocytopenia vertebal fracture r/o endocarditis c/w levo, maintain MAP >65 transfuse if Hb <7 surgical consult c/w jairon and vanc daily lactate, likely type 2 ISO cirrhosis vs shock follow cult sens GI consult appreciated diet consult pain management monitor H/H plt s/p iv protonix and octreotide, switch to iv ppi midodrine no EGD per GI echo diet cardiac dvt ppx hold ISO bleeding gi ppx not indicated Plan discussed with: Other My Orders Orders - SANDEE RANDOLPH MD Procedure Category Date Status Time Comprehensive LAB 10/25/24 Logged Metabolic Panel 04:00 Oob To Chair LEROY 10/25/24 In Process 14:02 Date of Service: October 25, 2024 Billing Provider: SANDEE RANDOLPH MD Common Visit Codes: [id number] INP/OBS CARE(HIGH) SANDEE RANDOLPH MD October 25, 2024 14:10
[2024-10-25 14:22] LABS: Basophils # (auto) 0 10 ^3/uL (0-0.2); Basophils % (auto) 2.1 % (0.0-2.0); Eosinophils # (auto) 0.1 10 ^3/uL (0-0.8); Eosinophils % (auto) 5.8 % (0.0-7.0); Hematocrit 27.4 % (41.0-53.0); Hemoglobin 9.2 g/dL (13.5-17.5); Lymphocytes # (auto) 0.8 10 ^3/uL (0.4-5.4); Lymphocytes % (auto) 35.4 % (10.0-50.0); Mean Corpuscular Hemoglobin 29.4 pg (28.0-32.0); Mean Corpuscular Hgb Conc. 33.5 g/dL (32.0-36.0); Mean Corpuscular Volume 87.9 fL (80.0-100.0); Monocytes # (auto) 0.2 10 ^3/uL (0-1.3); Monocytes % (auto) 10.4 % (0.0-12.0); Neutrophils # (auto) 1.1 10 ^3/uL (1.6-8.6); Neutrophils % (auto) 46.3 % (37.0-80.0); Nucleated Red Blood Cells % 0.2 %; Platelet Count (auto) 112 10^3/uL (140-450); Red Blood Cells 3.12 10^6/uL (4.5-5.90); White Blood Cell 2.4 10^3/uL (4.4-10.8)
[2024-10-25 14:23] LABS: Red Cell Distribution Width 22.1 % (11.8-14.3)
[2024-10-25 14:39] LABS: Alanine Aminotransferase 14 U/L (7-40); Alkaline Phosphatase 68 U/L (46-116); Anion Gap 7 (5-15); BUN/Creatinine Ratio 17.5 (10.0-20.0); Blood Urea Nitrogen 11 mg/dL (9-23); Carbon Dioxide 22 mmol/L (20-31); Glucose 86 mg/dL (74-106); Potassium 3.9 mmol/L (3.5-5.1); Sodium 142 mmol/L (136-145); Total Protein 5.9 g/dL (5.7-8.2)
[2024-10-25 14:47] LABS: Albumin 2.6 g/dL (3.2-4.8); Aspartate Aminotransferase 57 U/L (13-40); Bilirubin, Total 2.3 mg/dL (0.2-1.0); Calcium 8.6 mg/dL (8.7-10.4); Chloride 113 mmol/L (98-107)
--- NOTE | 2024-10-25 15:51 | DVH ---
EXAM: CT HEAD WITHOUT CONTRAST INDICATION: r/o organic TECHNIQUE: CT of the head without intravenous contrast. Radiation Dose Information: CT Dose: CTDI volume is 56.04 mGy. Dose-length product is 992.32 mGy*cm The dose indicators for CT are the volume Computed Tomography (CT) Dose Index (CTDIvol) and the Dose Length Product (DLP), and are measured in units of mGy and mGy-cm, respectively. These indicators are not patient dose, but values generated from the CT scanner acquisition factors. The report includes radiation exposure data for exposures received during this examination. COMPARISON: None FINDINGS: Chronic appearing subdural hematoma on the right side with a calcified rim measuring up to 7 mm in ma ximum dimension. No midline shift. The ventricles, sulci and cisterns are age appropriate. The dotson-white differentiation is intact. Patchy periventricular and subcortical white matter hypoattenuation is nonspecific but may be related to small vessel ischemic disease. The visualized paranasal sinuses and mastoid air cells are clear. The surrounding soft tissues and osseous structures are unremarkable. IMPRESSION: Chronic appearing subdural hematoma on the right side with a calcified rim measuring up to 7 mm in ma ximum dimension. No midline shift. Critical Result: Intracranial hemorrhage Findings discussed with SANDEE RANDOLPH at 10/25/2024 03:49 PM, and acknowledged receipt and understan ding of the findings. ..
[2024-10-25 17:00] VITALS: BP 106/57; PULSE 99; RESP 18; TEMP 98.5; O2SAT 92
--- NOTE | 2024-10-25 17:17 | DVHSR ---
APPROVED REPORT EXAM: LIMITED Two-dimensional and M-mode echocardiogram with Doppler and color Doppler. Blood Pressure: 89/48 mmHg INDICATION Ebiothrophia Defectiva Bacteremia RISK FACTORS Height: 5' 8", Weight: 166 DIMENSIONS LVDd5.4 (3.8-5.7cm)LA (2D)4.3 (1.9-4.0cm)Aortic Root3.2 (2.0-3.7cm) LVDs3.9 (2.5-4.0cm)LA (MM) (1.9-4.0cm)Aortic Cusp Exc1.3 (1.5-2.0cm) EF (%) 35.0 (55-70%)Rt. Atrium4.0 (1.9-4.0cm)Asc. Aorta cm IVSd1.0 (0.7-1.1cm)RV (D) (1.8-2.4cm) PWd1.0 (0.7-1.1cm) Mitral Valve MitralMitral Stenosis E wave1.00m/sMV Mean GR.mmHg A wave0.82m/sMV Peak GR.mmHg E/A ratio1.22D MVAcm2 Aortic Valve Aortic ValveAortic Stenosis V11.20m/Stephanie Mean GR.9mmHg V21.80m/Stephanie Peak GR.14mmHg LVOT Diameter2.1 (1.8-2.4cm)Doppler AVA2.31cm2 AI P 1/2 Okbw508.03ms Tricuspid Valve TR Velocity2.20m/s [id number] Other Information Quality : Technically LimitedRhythm : Technically limited study due to body habitus. Conclusion Sinus rhythm. Aortic root enlargement. Left atrial enlargement. LV enlargement. Moderate aortic sclerosis. Thickening of the aortic leaflets. Adequate excursion without stenosis. Mild mitral annular calcification. Tricuspid and pulmonic or structurally normal. Left ventricular function is diminished. EF is about 30% with global hypokinesis. Normal RV functio n. Mild aortic insufficiency. Mild aortic sclerosis with an gradient across the aortic valve of14 mmHg at peak and a mean gradient of 9.2 mmHg. This is consistent with aortic sclerosis without stenosis. No pericardial effusion masses or vegetations.
[2024-10-25 20:00] VITALS: PULSE 95
[2024-10-26 07:53] LABS: Basophils # (auto) 0 10 ^3/uL (0-0.2); Basophils % (auto) 0.9 % (0.0-2.0); Eosinophils # (auto) 0.1 10 ^3/uL (0-0.8); Eosinophils % (auto) 3.5 % (0.0-7.0); Hematocrit 26.5 % (41.0-53.0); Hemoglobin 8.9 g/dL (13.5-17.5); Lymphocytes # (auto) 0.9 10 ^3/uL (0.4-5.4); Lymphocytes % (auto) 24.7 % (10.0-50.0); Mean Corpuscular Hemoglobin 29.2 pg (28.0-32.0); Mean Corpuscular Hgb Conc. 33.5 g/dL (32.0-36.0); Mean Corpuscular Volume 87.2 fL (80.0-100.0); Monocytes # (auto) 0.4 10 ^3/uL (0-1.3); Neutrophils # (auto) 2.1 10 ^3/uL (1.6-8.6); Neutrophils % (auto) 60.9 % (37.0-80.0); Nucleated Red Blood Cells % 0.1 %; Platelet Count (auto) 123 10^3/uL (140-450); Red Blood Cells 3.05 10^6/uL (4.5-5.90); White Blood Cell 3.5 10^3/uL (4.4-10.8)
[2024-10-26 07:57] LABS: Red Cell Distribution Width 21.6 % (11.8-14.3)
[2024-10-26 08:00] VITALS: PULSE 97
[2024-10-26 08:03] LABS: Anion Gap 11 (5-15); Carbon Dioxide 21 mmol/L (20-31); Sodium 144 mmol/L (136-145)
[2024-10-26 08:09] LABS: BUN/Creatinine Ratio 15.3 (10.0-20.0); Blood Urea Nitrogen 13 mg/dL (9-23)
[2024-10-26 08:11] LABS: Calcium 8.5 mg/dL (8.7-10.4); Chloride 112 mmol/L (98-107); Glucose 117 mg/dL (74-106); Potassium 3.3 mmol/L (3.5-5.1)
[2024-10-26 09:00] VITALS: BP 107/60; PULSE 93; RESP 17; TEMP 100; O2SAT 95
[2024-10-26] MEDS: POTASSIUM EFFERVESENT TAB 25 MEQ GT ONE (09:00)
--- NOTE | 2024-10-26 09:15 | DVHPN2 ---
Assessment/Plan Assessment/Plan progress note 64 M bedbound with cirrhosis (alcoholic / HCV), CAD admitted for ALOc and oral bleeding, initially treated as UGIB, more hypotensive overnight, transfered to floor Seen today during rounds, have 100.2 temp, initiating cooling measures. found chornic SDH in CT, likely no intervention, stable, neuro input. echo with HFrEF not in exacerbation, not able to titrate GDMT due to soft BP Physical exam AOx2 blood crusted on lips dry mucous membranes uncooperative clear breath sounds s1 s2 rrr no murmur abdomen distended trace LE edema labs ekg imaging reviewed assessment and plan septic vs mixed shock, resolved abiotrophia defectiva bacteremia, resolved metabolic toxic encep dementia? wernickie? cholelithiasis with possible cholecystitis likely oral bleeding cirrhosis hep C alcohol use CAD lactic acidosis, type I and II severe protein calorie malnutrition thrombocytopenia vertebal fracture endocarditis ruled out HFrEF 30% chornic systolic heart failure chronic subdural hematoma c/w levo, maintain MAP >65 transfuse if Hb <7 surgical consult c/w jairon and vanc daily lactate, likely type 2 ISO cirrhosis vs shock follow cult sens GI consult appreciated diet consult pain management monitor H/H plt s/p iv protonix and octreotide, switch to iv ppi midodrine no EGD per GI PT eval neuro consult diet cardiac dvt ppx hold ISO bleeding gi ppx not indicated Plan discussed with: Other My Orders Orders - SANDEE RANDOLPH MD Procedure Category Date Status Time Oob To Chair LEROY 10/25/24 In Process 14:02 Echo 2d Mode Cardiac US 10/25/24 Resulted DOP 14:[address] 10/25/24 Resulted 14:08 * Neurology Consult CONS 10/26/24 Transmitted 08:59 Potassium Effervesent PHA 10/26/24 Transmitted Tab (Klor-Con/Ef) 09:00 Pt Request For Service PT 10/26/24 Transmitted 09:00 Date of Service: October 26, 2024 Billing Provider: SANDEE RANDOLPH MD Common Visit Codes: [id number] INP/OBS CARE(HIGH) SANDEE RANDOLPH MD October 26, 2024 09:15
--- NOTE | 2024-10-26 10:06 | DVHPN2 ---
Progress Note Date Seen: October 26, 2024 Resident Creating Document: DANIEL MIRANDA RESIDENT Has the PT tested + for MRSA If YES, has PT been informed?: No Medical Necessity Reason Pt with a Central, PICC or Fol: No Subjective Review of Systems Patient seen and examined at the bedside. Unable to obtain ROS due to patient is agitated and still confused. Monitor closely. Changes from previous H/P or p: No Changes Objective vital signs Vital Sign Date Time Temp Pulse Resp B/P (MAP) Pulse Ox O2 Delivery O2 Flow Rate FiO2 10/26/24 08:00 Room Air* 0 N/A Nasal Cannula* 10/25/24 20:00 95 10/25/24 17:00 98.5 18 106/57 (73) 92 98.5 Total Intake and Output 10/25/24 10/25/24 10/26/24 14:59 22:59 06:59 Intake Total 300 ml 450 ml Output Total 0 ml 500 ml Balance 300 ml -50 ml medications Current Medications Medications Dose Ordered Sig/Luis Route Start Time Stop Time Status Last Admin Dose Admin Ondansetron HCl 4 mg Q4HP PRN IV 10/16/24 20:45 10/19/24 20:05 4 MG Nitroglycerin 0.4 mg Q5MINP PRN SL 10/16/24 20:45 Vancomycin HCl 0 ml @ 0 mls/hr UD IV 10/17/24 16:30 Pantoprazole Sodium 40 mg BID IV 10/18/24 10:00 10/26/24 10:02 40 MG Haloperidol Lactate 5 mg Q8HP PRN IM 10/18/24 09:30 10/24/24 15:28 5 MG Vancomycin HCl 200 ml @ 200 mls/hr Q12H IV 10/20/24 18:00 10/26/24 06:01 200 MLS/HR Olanzapine 10 mg DAILY PO 10/22/24 10:00 10/26/24 10:02 10 MG Midodrine 10 mg TID@0600,1200,1800 PO 10/24/24 12:00 10/26/24 06:14 10 MG Examination Pt is lying on bed General Appearance: Mildly altered and agitated HEENT: Atraumatic, Mucous membranes moist/pink Respiratory: Clear to auscultation, Normal air movement, No added sounds Cardiovascular: Regular rate, Normal S1, Normal S2, No murmurs Abdominal: Active bowel sounds, Soft, no distention, no tenderness Extremities: No edema, Normal pulses, No tenderness/swelling Skin: No Significant rash, except past surgical scars Nurse was there as sharperone during examination laboratory and microbiology Laboratory Tests 10/26/24 06:48 Test 10/26/24 06:48 Range/Units Serum Glucose 117 H 74-106 mg/dL Microbiology Date/Time Source Procedure Growth Status 10/18/24 11:10 Voided Urine Urine Culture - Final Complete 10/18/24 06:00 Blood Blood Culture - Final NO GROWTH AFTER 5 DAYS OF INCUBATION. Complete 10/18/24 05:00 Sputum Gram Stain - Final Complete 10/18/24 05:00 Sputum Respiratory Culture - Final Complete 10/18/24 03:10 Nose MRSA Screen - Final Complete Labs and/or images reviewed: Labs reviewed by me, Image(s) reviewed by me Problem List/Assessment/Plan Problem List/Assessment/Plan GI bleed, possible oral bleeding Liver cirrhosis Metabolic encephalopathy ?Wernicke's Subdural hematoma Thrombocytopenia Cholelithiasis with possible acute cholecystitis Constipation PLAN: Head CT showed subdural hematoma, Neurology consult Likely etiology of liver cirrhosis related to previous alcohol use and possible history of hep C Repeat labs and check PT INR and ammonia Meld score is 14 points which has a good prognosis; Maddrey discrimination function 25 also suggestive of good prognosis His ammonia level has been normal Cardiology consult for possible NSTEMI I will be standing by for possible endoscopy if the patient has any recurrent episodes of bleeding Recommend a 2D echo and cardiac evaluated mention because of recent history of elevated troponins and suspected non-STEMI at [facility] Patient is not stable for EGD at this point Thank you so much for the opportunity to consult on your patient. GI team will follow the patient Case an action plan discussed with Dr. Daniela Palmer. Complex care planning needed total 49 minutes of detailed discussion. Plan discussed with: Other (RN) Dietary Evaluation Review Comments: 1. On CL diet, pt not to go >5 days NPO/CL diet only (Currently Day 2) 2. Recommend timely diet progression to Regular diet, may consider 2gm Na restriction if ascities worsens 3. Monitor BMP/lytes and H/H closely, replete to WNL 4. Will add Ensure Clear TID in the interim to enhance nutritional status (provides 240 kcal, 8 gm pro per carton) Expected Outcomes/Goals: Diet progression, improved clinical status. CC Plasma Assessment Blood Product Administration S: [id number] DANIEL MIRANDA RESIDENT October 26, 2024 10:06
[2024-10-26] MEDS: POTASSIUM EFFERVESENT TAB 25 MEQ PO ONE (11:39)
[2024-10-26 13:00] VITALS: BP 113/61; PULSE 87; RESP 18; TEMP 98.6; O2SAT 92
[2024-10-26 16:28] VITALS: BP 109/57; PULSE 93; RESP 15; TEMP 93; O2SAT 93
[2024-10-26 20:00] VITALS: PULSE 80
[2024-10-26 21:14] VITALS: BP 106/55; PULSE 88; RESP 18; TEMP 98.4; O2SAT 95
[2024-10-27 08:00] VITALS: PULSE 82
--- NOTE | 2024-10-27 13:36 | DVHPN2 ---
Reviewed: H&P Changes from previous H/P or p: No Changes General: Per HPI Eyes: No Pain, No Vision change, No Conjunctivae inflammation, No Eyelid inflammation, No Other, No Redness ENT: No Ear pain, No Ear discharge, No Nose pain, No Nose discharge, No Nose congestion, No Mouth pain, No Mouth swelling, No Throat pain, No Throat swelling, No Other Cardiovascular: No Chest Pain, No Palpitations, No Orthopnea, No Paroxysmal Noc. Dyspnea, No Edema, No Lt Headedness, No Other Respiratory: No Cough, No Dry, No Shortness of breath, No SOB with excertion, No Wheezing, No Hemoptysis, No Pleuritic Pain, No Sputum, No Other Gastrointestinal: No Nausea, No Vomiting, No Abdominal Pain, No Diarrhea, No Constipation, No Melena; Hematochezia, Other (oral bleeding ) Genitourinary: No Dysuria, No Frequency, No Incontinence, No Hematuria, No Retention, No Other Musculoskeletal: No other, No neck pain, No shoulder pain, No arm pain, No back pain, No hand pain, No leg pain, No foot pain Skin: No Rash, No Lesions, No Jaundice, No Bruising, No Other Objective Vitals Vital Signs Date Time Temp Pulse Resp B/P (MAP) Pulse Ox O2 Delivery O2 Flow Rate FiO2 10/27/24 08:30 Room Air* 0 21 10/26/24 21:14 98.4 88 18 106/55 (72) 95 98.4 Intake/Output Intake and Output 10/27/24 07:00 Intake Total 650 ml Output Total 800 ml Balance -150 ml Intake Oral 650 ml Output Urine Total 800 ml Medications Current Medications Medications Dose Ordered Sig/Luis Route Start Time Stop Time Status Last Admin Dose Admin Ondansetron HCl 4 mg Q4HP PRN IV 10/16/24 20:45 10/19/24 20:05 4 MG Nitroglycerin 0.4 mg Q5MINP PRN SL 10/16/24 20:45 Vancomycin HCl 0 ml @ 0 mls/hr UD IV 10/17/24 16:30 Pantoprazole Sodium 40 mg BID IV 10/18/24 10:00 10/26/24 21:29 40 MG Haloperidol Lactate 5 mg Q8HP PRN IM 10/18/24 09:30 10/26/24 23:36 5 MG Vancomycin HCl 200 ml @ 200 mls/hr Q12H IV 10/20/24 18:00 10/26/24 17:49 200 MLS/HR Olanzapine 10 mg DAILY PO 10/22/24 10:00 10/27/24 09:17 10 MG Midodrine 10 mg TID@0600,1200,1800 PO 10/24/24 12:00 10/26/24 17:47 10 MG Laboratory Results Laboratory Tests 10/26/24 06:48 10/27/24 05:35 Urinalysis Test 10/18/24 11:10 Urine Color Yellow (Yellow) Urine Clarity Clear (Clear) Urine pH 5.5 (5.0-9.0) Urine Specific [place] 1.025 (1.001-1.035) Urine Protein Negative (Negative) Urine Ketones Trace (Negative) Urine Blood Negative /uL (Negative) Urine Nitrite Negative (Negative) Urine Bilirubin Negative (Negative) Urine Urobilinogen Normal mg/dL (Negative) Urine Leukocyte Esterase Negative /uL (Negative) Urine RBC 1 /hpf (0 - 3) Urine Microscopic WBC 2 /HPF (0-3) Urine Squamous Epithelial Cells Few /hpf (<5) Urine Bacteria Few /hpf (None Seen) H Urine Mucus Few (None Seen) Urine Glucose Normal mg/dL (Normal) Microbiology Microbiology Date/Time Source Procedure Growth Status 10/18/24 11:10 Voided Urine Urine Culture - Final Complete 10/18/24 06:00 Blood Blood Culture - Final NO GROWTH AFTER 5 DAYS OF INCUBATION. Complete 10/18/24 05:00 Sputum Gram Stain - Final Complete 10/18/24 05:00 Sputum Respiratory Culture - Final Complete 10/18/24 03:10 Nose MRSA Screen - Final Complete Labs and/or images reviewed: Labs reviewed by me, Image(s) reviewed by me Assessment/Plan Assessment/Plan Covering for Dr. Cao Septic shock Bacteremia resolved metabolic toxic encep dementia? wernickie? cholelithiasis with possible cholecystitis likely oral bleeding cirrhosis hep C alcohol use CAD lactic acidosis, type I and II severe protein calorie malnutrition thrombocytopenia vertebal fracture endocarditis ruled out HFrEF 30% chornic systolic heart failure chronic subdural hematoma Continue current management including vancomycin Time spent 50 minutes Plan discussed with: Patient Date of Service: October 27, 2024 Billing Provider: HEIDY HOLLOWAY MD Common Visit Codes: [id number] INP/OBS CARE(HIGH) HEIDY HOLLOWAY MD October 27, 2024 13:36
[2024-10-27 16:51] VITALS: BP 107/57; PULSE 89; RESP 17; TEMP 98.1; O2SAT 96
[2024-10-27 20:00] VITALS: PULSE 92
[2024-10-27 21:00] VITALS: BP 109/52; PULSE 90; RESP 20; TEMP 98; O2SAT 97
[2024-10-28] VITALS (7 sets, daily range): BP systolic 102–111; BP diastolic 48–56; PULSE 77–88; RESP 17–18; TEMP 97.7–98.3; O2SAT 94–96
--- NOTE | 2024-10-28 09:25 | DVHPN2 ---
Reviewed: H&P Changes from previous H/P or p: No Changes General: Per HPI Eyes: No Pain, No Vision change, No Conjunctivae inflammation, No Eyelid inflammation, No Other, No Redness ENT: No Ear pain, No Ear discharge, No Nose pain, No Nose discharge, No Nose congestion, No Mouth pain, No Mouth swelling, No Throat pain, No Throat swelling, No Other Cardiovascular: No Chest Pain, No Palpitations, No Orthopnea, No Paroxysmal Noc. Dyspnea, No Edema, No Lt Headedness, No Other Respiratory: No Cough, No Dry, No Shortness of breath, No SOB with excertion, No Wheezing, No Hemoptysis, No Pleuritic Pain, No Sputum, No Other Gastrointestinal: No Nausea, No Vomiting, No Abdominal Pain, No Diarrhea, No Constipation, No Melena; Hematochezia, Other (oral bleeding ) Genitourinary: No Dysuria, No Frequency, No Incontinence, No Hematuria, No Retention, No Other Musculoskeletal: No other, No neck pain, No shoulder pain, No arm pain, No back pain, No hand pain, No leg pain, No foot pain Skin: No Rash, No Lesions, No Jaundice, No Bruising, No Other Objective Vitals Vital Signs Date Time Temp Pulse Resp B/P (MAP) Pulse Ox O2 Delivery O2 Flow Rate FiO2 10/28/24 08:59 97.7 81 17 102/56 (71) 94 97.7 10/28/24 08:00 Room Air* 0 21 Intake/Output Intake and Output 10/28/24 07:00 Intake Total 340 ml Output Total 825 ml Balance -485 ml Intake Oral 340 ml Output Urine Total 825 ml Medications Current Medications Medications Dose Ordered Sig/Luis Route Start Time Stop Time Status Last Admin Dose Admin Ondansetron HCl 4 mg Q4HP PRN IV 10/16/24 20:45 10/19/24 20:05 4 MG Nitroglycerin 0.4 mg Q5MINP PRN SL 10/16/24 20:45 Vancomycin HCl 0 ml @ 0 mls/hr UD IV 10/17/24 16:30 Pantoprazole Sodium 40 mg BID IV 10/18/24 10:00 10/26/24 21:29 40 MG Haloperidol Lactate 5 mg Q8HP PRN IM 10/18/24 09:30 10/26/24 23:36 5 MG Vancomycin HCl 200 ml @ 200 mls/hr Q12H IV 10/20/24 18:00 10/26/24 17:49 200 MLS/HR Olanzapine 10 mg DAILY PO 10/22/24 10:00 10/27/24 09:17 10 MG Midodrine 10 mg TID@0600,1200,1800 PO 10/24/24 12:00 10/26/24 17:47 10 MG Laboratory Results Laboratory Tests 10/26/24 06:48 10/27/24 05:35 Urinalysis Test 10/18/24 11:10 Urine Color Yellow (Yellow) Urine Clarity Clear (Clear) Urine pH 5.5 (5.0-9.0) Urine Specific [place] 1.025 (1.001-1.035) Urine Protein Negative (Negative) Urine Ketones Trace (Negative) Urine Blood Negative /uL (Negative) Urine Nitrite Negative (Negative) Urine Bilirubin Negative (Negative) Urine Urobilinogen Normal mg/dL (Negative) Urine Leukocyte Esterase Negative /uL (Negative) Urine RBC 1 /hpf (0 - 3) Urine Microscopic WBC 2 /HPF (0-3) Urine Squamous Epithelial Cells Few /hpf (<5) Urine Bacteria Few /hpf (None Seen) H Urine Mucus Few (None Seen) Urine Glucose Normal mg/dL (Normal) Microbiology Microbiology Date/Time Source Procedure Growth Status 10/18/24 11:10 Voided Urine Urine Culture - Final Complete 10/18/24 06:00 Blood Blood Culture - Final NO GROWTH AFTER 5 DAYS OF INCUBATION. Complete 10/18/24 05:00 Sputum Gram Stain - Final Complete 10/18/24 05:00 Sputum Respiratory Culture - Final Complete 10/18/24 03:10 Nose MRSA Screen - Final Complete Labs and/or images reviewed: Labs reviewed by me, Image(s) reviewed by me Assessment/Plan Assessment/Plan Covering for Dr. Cao Septic shock Bacteremia resolved metabolic toxic encep dementia? wernickie? cholelithiasis with possible cholecystitis likely oral bleeding cirrhosis hep C alcohol use CAD lactic acidosis, type I and II severe protein calorie malnutrition thrombocytopenia vertebal fracture endocarditis ruled out HFrEF 30% chornic systolic heart failure chronic subdural hematoma Continue current management including vancomycin Time spent 45 minutes Plan discussed with: Patient Date of Service: October 28, 2024 Billing Provider: HEIDY HOLLOWAY MD Common Visit Codes: [id number] INP/OBS CARE(HIGH) HEIDY HOLLOWAY MD October 28, 2024 09:25
[2024-10-29 01:00] VITALS: BP 113/51; PULSE 87; RESP 18; TEMP 98.3; O2SAT 96
[2024-10-29 05:00] VITALS: BP 101/51; PULSE 82; RESP 17; TEMP 98.7; O2SAT 96
[2024-10-29 08:00] VITALS: PULSE 80
[2024-10-29 08:20] VITALS: PULSE 82; RESP 18
[2024-10-29 09:00] VITALS: BP 107/59; PULSE 82; RESP 20; TEMP 97.9; O2SAT 96
[2024-10-29] MEDS ORDERED: MID10T PO (14:01)
[2024-10-29] MEDS ORDERED: OLAN1TAB7 PO (14:01)
--- NOTE | 2024-10-29 14:04 | DVHDS2 ---
Discharge Summary Date of Admission Oct 16, 2024 at 20:31 Date of Discharge: October 29, 2024 Labs/Diagnostic Data: Laboratory Results Test 10/27/24 05:35 10/26/24 17:00 10/26/24 06:48 10/25/24 14:10 Creatinine 0.73 mg/dL (0.700-1.30) Glomerular Filtration Rate Calc 102 mL/min (>90) Vancomycin Level Trough 18.2 ug/mL (5-10) White Blood Count 3.5 10^3/uL (4.4-10.8) Red Blood Count 3.05 10^6/uL (4.5-5.90) Hemoglobin 8.9 g/dL (13.5-17.5) Hematocrit 26.5 % (41.0-53.0) Mean Corpuscular Volume 87.2 fL (80.0-100.0) Mean Corpuscular Hemoglobin 29.2 pg (28.0-32.0) Mean Corpuscular Hemoglobin Concent 33.5 g/dL (32.0-36.0) Red Cell Distribution Width 21.6 % (11.8-14.3) Platelet Count 123 10^3/uL (140-450) Mean Platelet Volume 7.7 fL (6.9-10.8) Neutrophils (%) (Auto) 60.9 % (37.0-80.0) Lymphocytes (%) (Auto) 24.7 % (10.0-50.0) Monocytes (%) (Auto) 10.0 % (0.0-12.0) Eosinophils (%) (Auto) 3.5 % (0.0-7.0) Basophils (%) (Auto) 0.9 % (0.0-2.0) Neutrophils # (Auto) 2.1 10 ^3/uL (1.6-8.6) Lymphocytes # (Auto) 0.9 10 ^3/uL (0.4-5.4) Monocytes # (Auto) 0.4 10 ^3/uL (0-1.3) Eosinophils # (Auto) 0.1 10 ^3/uL (0-0.8) Basophils # (Auto) 0 10 ^3/uL (0-0.2) Nucleated Red Blood Cells 0.1 % Sodium Level 144 mmol/L (136-145) Potassium Level 3.3 mmol/L (3.5-5.1) Chloride Level 112 mmol/L (98-107) Carbon Dioxide Level 21 mmol/L (20-31) Anion Gap 11 (5-15) Blood Urea Nitrogen 13 mg/dL (9-23) BUN/Creatinine Ratio 15.3 (10.0-20.0) Serum Glucose 117 mg/dL (74-106) Calcium Level 8.5 mg/dL (8.7-10.4) Total Bilirubin 2.3 mg/dL (0.2-1.0) Aspartate Amino Transferase (AST) 57 U/L (13-40) Alanine Aminotransferase (ALT) 14 U/L (7-40) Alkaline Phosphatase 68 U/L (46-116) B-Type Natriuretic Peptide 937.22 pg/mL (0-100) Total Protein 5.9 g/dL (5.7-8.2) Albumin 2.6 g/dL (3.2-4.8) Test 10/21/24 12:57 10/20/24 05:28 10/19/24 02:54 10/18/24 13:59 Ammonia 11 umol/L (11-32) Phosphorus Level 3.1 mg/dL (2.4-5.1) Magnesium Level 2.0 mg/dL (1.6-2.6) Direct Bilirubin 1.1 mg/dL (<0.3) Miscellaneous Referred Test ( Tmp Sent to [facility] Test 10/18/24 11:10 10/18/24 06:00 10/18/24 03:43 10/18/24 03:37 Urine Color Yellow (Yellow) Urine Clarity Clear (Clear) Urine pH 5.5 (5.0-9.0) Urine Specific [place] 1.025 (1.001-1.035) Urine Protein Negative (Negative) Urine Ketones Trace (Negative) Urine Blood Negative /uL (Negative) Urine Nitrite Negative (Negative) Urine Bilirubin Negative (Negative) Urine Urobilinogen Normal mg/dL (Negative) Urine Leukocyte Esterase Negative /uL (Negative) Urine RBC 1 /hpf (0 - 3) Urine Microscopic WBC 2 /HPF (0-3) Urine Squamous Epithelial Cells Few /hpf (<5) Urine Bacteria Few /hpf (None Seen) Urine Mucus Few (None Seen) Urine Glucose Normal mg/dL (Normal) Lactic Acid Level 2.5 mmol/L (0.4-2.0) Blood Gas Specimen Type Arterial Blood Gas Sample Site Right radial Blood Gas Patient Temperature 37.0 Arterial Blood Date Drawn [id number] Arterial Blood pH 7.456 (7.350-7.450) Arterial Blood Partial Pressure CO2 24.0 mmHg (35.0-48.0) Arterial Blood Partial Pressure O2 88.0 mmHg (83.0-108.0) Arterial Blood HCO3 16.5 mmol/L (21.0-28.0) Arterial Blood Oxygen Saturation 96.4 % (94.0-98.0) Arterial Blood Base Excess -6.3 mmol/L (-2.0-3.0) Arterial Blood Oxyhemoglobin 95.8 % (94.0-98.0) Arterial Blood Carboxyhemoglobin 0.6 % (0.5-1.5) Arterial Blood Methemoglobin 0.0 % (0.0-1.5) Michael Test Yes Blood Gas Total Hemoglobin 8.70 g/dL (13.5-17.5) Blood Gas Liter Flow 1.00 Blood Gas Modality Nasal cannula FiO2 % 24.0 Specimen Drawn By Prothrombin Time 16.0 sec (9.3-11.8) Prothrombin Time INR 1.58 (0.9-1.15) Activated Partial Thromboplast Time 40.7 SEC (24.5-34.5) Test 10/16/24 16:22 Reticulocyte Count (auto) 1.54 % (0.5-1.5) Iron Level 32 ug/dL (65-175) Total Iron Binding Capacity 226 ug/dL (250-425) Percent Iron Saturation 14.2 % (20-55) Ferritin 95.3 ng/mL (22-322) Vitamin B12 Level 1006 pg/mL (211-911) Folic Acid 16.05 ng/mL (>5.38) Other Laboratory Tests 10/27/24 05:35 10/26/24 06:48 Brief Hx & Hospital Course: Septic shock Bacteremia resolved metabolic toxic encep dementia? wernickie? cholelithiasis with possible cholecystitis likely oral bleeding cirrhosis hep C alcohol use CAD lactic acidosis, type I and II severe protein calorie malnutrition thrombocytopenia vertebal fracture endocarditis ruled out HFrEF 30% chornic systolic heart failure chronic subdural hematoma Continue current management including vancomycin Time spent 45 minutes discharged to home Condition at Discharge: Fair Final Diagnosis/Problems List see above Discharge Disposition: Home Discharge Instruct/Medications Diet: Cardiac 2g Na,low cholest Activity: No Restrictions, As Tolerated Discharge Statement: "Patient was advised to return to the ER or call 911 if any headaches, dizziness, shortness of breath, chest pain, abdominal pain, bleeding, fevers, or worsening of medical condition. Patient was counseled about treatment plan, medications, possible side effects, patientverbalized understanding. All questions were answered to the best of my ability. This discharge took greater then 30 minutes in planning, reviewing documentation, counseling the patient, and discussing with other team members." ASSESSMENT ASSESSMENT Assessment Date of Service: October 29, 2024 Billing Provider: JULIETTE HUTTON DO Common Visit Codes: [id number] DISCH DAY >30min JULIETTE HUTTON DO October 29, 2024 14:04
[2024-10-29 15:00] VITALS: BP 103/52; PULSE 83; RESP 20; O2SAT 96
== END 2024-10-29 18:40 | disposition home or self-care (01) | DRG 720 ==
LOC: ER 15:39 → EDBD 15:39 → OVERFLOW 20:31 → TELE-WESTW 10-17 15:04 → ICU WEST 10-18 03:02 → TELE-CENTR 10-19 14:00
PROVIDERS: ADMIT Internal Medicine; ATTEND Internal Medicine
PROC: 30233R1 Transfusion of Nonautologous Platelets into Peripheral Vein, Percutaneous Approach (ICD-10-PCS; principal; 2024-10-17)
DX: A41.9 Sepsis, unspecified organism (principal); R65.21 Severe sepsis with septic shock; G92.8 Other toxic encephalopathy; E43 Unspecified severe protein-calorie malnutrition; I62.03 Nontraumatic chronic subdural hemorrhage; E87.20 Acidosis, unspecified; I50.20 Unspecified systolic (congestive) heart failure; D68.9 Coagulation defect, unspecified; K80.10 Calculus of gallbladder with chronic cholecystitis without obstruction; K70.31 Alcoholic cirrhosis of liver with ascites; E51.2 Wernicke's encephalopathy; K76.82 Hepatic encephalopathy; D69.59 Other secondary thrombocytopenia; K92.2 Gastrointestinal hemorrhage, unspecified; K59.00 Constipation, unspecified; I25.10 Atherosclerotic heart disease of native coronary artery without angina pectoris; Z68.1 Body mass index [BMI] 19.9 or less, adult; R32 Unspecified urinary incontinence; B19.20 Unspecified viral hepatitis C without hepatic coma; M48.54XA Collapsed vertebra, not elsewhere classified, thoracic region, initial encounter for fracture; F03.90 Unspecified dementia, unspecified severity, without behavioral disturbance, psychotic disturbance, mood disturbance, and anxiety; M54.9 Dorsalgia, unspecified; K76.0 Fatty (change of) liver, not elsewhere classified; N20.0 Calculus of kidney; Z74.01 Bed confinement status; Z88.0 Allergy status to penicillin; Z79.899 Other long term (current) drug therapy; Z79.82 Long term (current) use of aspirin; Z86.19 Personal history of other infectious and parasitic diseases
CPT/HCPCS: 36415; 36600; 70450; 71045; 72100; 74176; 76705; 78226; 80048; 80053; 80076; 80202; 81001; 82140; 82565; 82607; 82728; 82746; 82805; 83540; 83550; 83605; 83735; 83880; 84100; 85014; 85018; 85025; 85045; 85610; 85730; 86850; 86900; 86901; 87040; 87070; 87081; 87086; 87205; 93005; 93306; 96365; 97116; 97163; 97530; 99291; G0378; J2185; J2405; J2470; J3490; J7060; P9047

== ENCOUNTER 2025-01-08 17:01 | Inpatient (IN) | payer OTHER ==
[~2025-01-08] VITALS: Ht 172.7 cm; Wt 64.0 kg
[~2025-01-08 17:01] MED LIST: ASPI81CH59 PO; ATOR40TA52 PO; CARV3.1240 PO; CHLO25CA10 PO; FER325T PO; FOLITAB22 PO; FURO20TA3 PO; MID10T GT; MID10T PO; NITR0.4S29 SL; OLAN1TAB7 PO; RANO500T3 PO; THI100I IJ
--- NOTE | 2025-01-08 17:21 | ED.PDOC ---
GI ASSESSMENT HPI Comments 64 y/o M, BIBA, with PMHx of CAD and liver cirrhosis presents to the emergency department for chief complaint of abdominal pain. EMS reports, patient is coming from home where he c/o diffuse abdominal pain and distension x1day. Patient relays, abdominal pain to worsen while lying down with associated shortness of breath as a result. Patient denies nausea, vomiting, diarrhea, fever, or chills. No other symptoms or modifying factors present at this time. Chief Complaint: Abdominal Pain Time Seen by MD: 17:00 Primary Care Provider: NONE Reviewed Notes: Nurses Notes, Utilization Engineer Notes, Medications, Allergies Allergies: Coded Allergies: NO KNOWN ALLERGIES (Unverified , 10/19/24) Home Meds Active Scripts Olanzapine (OLANZAPINE) 5 Mg Tab, 10 MG PO DAILY for 30 Days, #3 TAB 3 Refills Prov:JULIETTE HUTTON DO 10/29/24 Midodrine HCl (Midodrine HCl) 10 Mg Tab, 10 MG PO TID@0600,1200,1800 for 30 Days, #90 TAB 3 Refills Prov:JULIETTE HUTTON DO 10/29/24 Reported Medications Nitroglycerin (NTROSTAT SUBLINGUAL) 0.4 Mg Sl, 0.4 MG SL PRN, TAB *MAY REPEAT EVERY 5 MINUTES X 3 TOTAL IF NO RELIEF, INITIATE ANALGESIC THERAPY. NOTIFY PHYSICIAN *Do not crush. 10/17/24 Midodrine HCl (Midodrine HCl) 10 Mg Tab, 5 MG GT, TAB 10/17/24 Chlordiazepoxide HCl (Chlordiazepoxide Hydrochl) 25 Mg Cap, 25 MG PO, CAP 10/17/24 Thiamine Hcl (THIAMINE HCL) 100 Mg/Ml Inj, 50 MG IJ, INJ 10/17/24 Ranolazine (Ranolazine ER) 500 Mg Tab, 500 MG PO, TAB 10/17/24 Furosemide (Furosemide) 20 Mg Tab, 20 MG PO, TAB 10/17/24 Folic Lpea-Osqqrdyoxs-Olwpjhsz (Folbic) Tab, 1 TAB PO DAILY, #90 TAB 1 Refill 10/17/24 Ferrous Sulfate (FERROUS SULFATE) 325 Mg Tb, 325 MG PO, TAB 10/17/24 Carvedilol (Carvedilol) 3.125 Mg Tab, 0.5 TAB PO BID, #60 TAB 3 Refills 10/17/24 Atorvastatin Calcium (ATORVASTATIN CALCIUM) 40 Mg Tab, 1 TAB PO DAILY, #30 TAB 5 Refills 10/17/24 Aspirin (Aspirin Low Dose) 81 Mg Chw, 81 MG PO, TAB.CHEW 10/17/24 Information Source: Patient, Emergency Med Personnel Mode of Arrival: EMS Timing: Hours Duration: Since onset Prehospital treatment: None Quality: None Vomitus: None Stool: Normal Severity: Moderate Recent: None Recent Hx of: None Pain Location: Diffuse Associated sign and symptoms: Abdominal Pain Past Medical History PAST MEDICAL HISTORY: CAD, Liver Surgical History: Denies all surgeries Family History Family History: Unknown Social History Smoker: Non-Smoker Alcohol: Heavy Drugs: Denies Drug Use Lives In: Home Constitutional: denies: chills, diaphoresis, fatigue, fever, malaise, sweats, weakness, others EENTM: denies: blurred vision, double vision, ear bleeding, ear discharge, ear drainage, ear pain, ear ringing, eye pain, eye redness, hearing loss, mouth pain, mouth swelling, nasal discharge, nose bleeding, nose congestion, nose pain, photophobia, tearing, throat pain, throat swelling, voice changes, others Respiratory: reports: shortness of breath; denies: cough, hemoptysis, orthopnea, SOB at rest, SOB with excertion, stridor, wheezing, others Cardiovascular: denies: chest pain, dizzy spells, diaphoresis, Dyspnea on exertion, edema, irregular heart beat, left arm pain, lightheadedness, palpitations, PND, syncope, others Gastrointestinal: reports: abdominal pain; denies: abdomen distended, blood streaked bowels, constipated, diarrhea, dysphagia, difficulty swallowing, hematemesis, melena, nausea, poor appetite, poor fluid intake, rectal bleeding, rectal pain, vomiting, others Genitourinary: denies: burning, dysuria, flank pain, frequency, hematuria, incontinence, penile discharge, penile sore, pain, testicle pain, testicle swelling, urgency, others Neurological: denies: dizziness, fainting, headache, left sided numbness, left sided weakness, numbness, paresthesia, pre-existing deficit, right sided numbness, right sided weakness, seizure, speech problems, tingling, tremors, weakness, others Musculoskeletal: denies: back pain, gout, joint pain, joint swelling, muscle pain, muscle stiffness, neck pain, others Integumetry: denies: bruises, change in color, change in hair/nails, dryness, laceration, lesions, lumps, rash, wounds, others Allergic/Immunocompromised: denies: Difficulty Healing, Frequent Infections, Hives, Itching, others Hematologic/Lymphatic: denies: anemia, blood clots, easy bleeding, easy bruising, swollen glands, others Endocrine: denies: excessive hunger, excessive sweating, excessive thirst, excessive urination, flushing, intolerance to cold, intolerance to heat, unexplained weight gain, unexplained weight loss, others Psychiatric: denies: anxiety, bipolar disorder, depression, hopeless, panic disorder, schizophrenia, sleepless, suicidal, others All Other Systems: Reviewed and Negative Physical Exam General Appearance: No Apparent Distress, Normal HEENT: Normal ENT Inspection, Pharynx Normal, TMs Normal Neck: Full Range of Motion, Non-Tender, Normal, Normal Inspection Respiratory: Chest Non-Tender, Lungs Clear, No Accessory Muscle Use, No Respiratory Distress, Normal Breath Sounds Cardiovascular: No Edema, No Murmur, No Gallop, Normal Peripheral Pulses, Regular Rate/Rhythm Breast Exam: Deferred Gastrointestinal: No Organomegaly, No Pulsatile Mass, Normal Bowel Sounds, Other (Pre turbinate abdomen) Genitalia: Deferred Pelvic: Deferred Rectal: Deferred Extremities: No calf tenderness, Normal capillary refill, Normal inspection, Normal range of motion, Non-tender, No pedal edema Musculoskeletal : Apperance: Normal Neurologic: Alert, kitchen work supervisor II-XII nml as Tested, No Motor Deficits, Normal Affect, Normal Mood, No Sensory Deficits Cerebellar Function: Normal Reflexes: Normal Skin: Dry, Normal Color, Warm Lymphatic: No Adenopathy Was a procedure done? Was a procedure done?: No GI differential Dx Differential Diagnosis: Gastritis/PUD, Gastroenteritis, Electrolyte Imbalance, Food Poisoning, Bacterial, Viral X-Ray, Labs, Meds, VS Vital Signs Date Time Temp Pulse Resp B/P (MAP) Pulse Ox O2 Delivery O2 Flow Rate FiO2 01/08/25 20:07 98.0 95 20 95/35 (55) 100 98.0 01/08/25 20:07 95 20 100 Room Air 01/08/25 17:05 97.6 89 18 135/69 (91) 98 97.6 01/08/25 17:04 88 Lab Test 01/08/25 22:31 01/08/25 20:42 01/08/25 20:16 01/08/25 18:11 Range/Units Lactic Acid Level 2.7 *H 3.9 *H 0.4-2.0 mmol/L Plasma/Serum Blood Alcohol < 3.0 <10 mg/dL Prothrombin Time 14.9 H 9.3-11.8 sec Prothrombin Time INR 1.46 H 0.9-1.15 Activated Partial Thromboplast Time 41.0 H 24.5-34.5 SEC Magnesium Level 2.1 1.6-2.6 mg/dL Troponin I High Sensitivity 213 *H 217 *H </=54 ng/L Thyroid Stimulating Hormone (TSH) 4.72 0.55-4.78 uIU/mL Test 01/08/25 17:20 Range/Units White Blood Count 6.7 4.4-10.8 10^3/uL Red Blood Count 3.42 L 4.5-5.90 10^6/uL Hemoglobin 10.1 L 13.5-17.5 g/dL Hematocrit 30.1 L 41.0-53.0 % Mean Corpuscular Volume 88.0 80.0-100.0 fL Mean Corpuscular Hemoglobin 29.5 28.0-32.0 pg Mean Corpuscular Hemoglobin Concent 33.5 32.0-36.0 g/dL Red Cell Distribution Width 20.3 H 11.8-14.3 % Platelet Count 83 L 140-450 10^3/uL Mean Platelet Volume 7.5 6.9-10.8 fL Neutrophils (%) (Auto) 73.6 37.0-80.0 % Lymphocytes (%) (Auto) 16.0 10.0-50.0 % Monocytes (%) (Auto) 6.9 0.0-12.0 % Eosinophils (%) (Auto) 2.9 0.0-7.0 % Basophils (%) (Auto) 0.6 0.0-2.0 % Neutrophils # (Auto) 4.9 1.6-8.6 10 ^3/uL Lymphocytes # (Auto) 1.1 0.4-5.4 10 ^3/uL Monocytes # (Auto) 0.5 0-1.3 10 ^3/uL Eosinophils # (Auto) 0.2 0-0.8 10 ^3/uL Basophils # (Auto) 0 0-0.2 10 ^3/uL Nucleated Red Blood Cells 0.1 % Platelet Estimate Decreased Anisocytosis (manual) Slight Sodium Level 135 L 136-145 mmol/L Potassium Level 4.3 3.5-5.1 mmol/L Chloride Level 105 98-107 mmol/L Carbon Dioxide Level 21 20-31 mmol/L Anion Gap 9 5-15 Blood Urea Nitrogen 22 9-23 mg/dL Creatinine 0.97 0.700-1.30 mg/dL Glomerular Filtration Rate Calc 88 >90 mL/min BUN/Creatinine Ratio 22.7 H 10.0-20.0 Serum Glucose 122 H 74-106 mg/dL Calcium Level 8.7 8.7-10.4 mg/dL Total Bilirubin 3.2 H 0.2-1.0 mg/dL Aspartate Amino Transferase (AST) 270 H 13-40 U/L Alanine Aminotransferase (ALT) 181 H 7-40 U/L Alkaline Phosphatase 94 46-116 U/L Troponin I High Sensitivity 193 *H </=54 ng/L B-Type Natriuretic Peptide 1166.50 0-100 pg/mL Microbiology Date/Time Source Procedure Growth Status 01/08/25 20:42 Blood Blood Culture - Preliminary Resulted 01/08/25 20:30 Blood Blood Culture - Preliminary Resulted Current Medications Medications (Trade) Dose Ordered Sig/Luis Route Start Time Stop Time Status Last Admin Sodium Chloride 500 ml @ 500 mls/hr Q1H ONCE IV 01/08/25 21:30 01/08/25 22:29 DC 01/08/25 21:42 Vancomycin HCl 200 ml @ 200 mls/hr ONCE ONCE IV 01/08/25 21:30 01/08/25 22:29 DC 01/08/25 23:57 Ceftriaxone Sodium 50 ml @ 100 mls/hr ONCE ONCE IV 01/08/25 21:30 01/08/25 21:59 DC 01/08/25 22:47 Time of 1ST Reevaluation: 17:30 Reevaluation 1ST: Unchanged Patient Education/Counseling: Diagnosis, Treatment Family Education/Counseling: No Family Present SEPSIS Sepsis Screen Physician Orders Electrocardigram (01/08/25 18:02) Electrocardigram (01/08/25 20:02) Chest Portable (01/08/25 17:10) Urinalysis (01/08/25 17:10) Ct Ab Pel With Iv Con Only (01/08/25 17:10) Blood Culture (01/08/25 20:25) Vital Signs Date Time Temp Pulse Resp B/P (MAP) Pulse Ox O2 Delivery O2 Flow Rate FiO2 01/08/25 20:07 98.0 95 20 95/35 (55) 100 98.0 01/08/25 20:07 95 20 100 Room Air 01/08/25 17:05 97.6 89 18 135/69 (91) 98 97.6 01/08/25 17:04 88 Laboratory Tests Test 01/08/25 17:20 01/08/25 20:42 01/08/25 22:31 White Blood Count 6.7 10^3/uL (4.4-10.8) Lactic Acid Level 3.9 mmol/L (0.4-2.0) *H 2.7 mmol/L (0.4-2.0) *H Departure 1 Departure Time of Disposition: 18:30 (Patient presented with abdominal pain that was concerning for possible appendicits, gastritis, cholecystitis, colitis, gastroenteritis, sbo, or orther possible surgical emergency. Data: 1. I ordered and reviewed the result of at least 3 labs including a CBC, BMP, and Urinalysis. 2. I independently interpreted the following tests: CT Abdoment and Pelvis is concerning for large volume ascites .Risk:This patient has a high risk of morbidity due to further diagnostic testing or treatment and may suffer from an acute abdominal process disorder. Workup reveals large volume ascites and patient should be admitted for further workup. and possible expert consultation. ) Impression: Primary Impression: Intractable abdominal pain Additional Impressions: Ascites Qualified Codes: R18.8 - Other ascites SBP (spontaneous bacterial peritonitis) Disposition: ADMITTED INPATIENT Admit to: Med Surg Condition: Serious Critical Care Note Critical Care Time?: Yes Critical care comment: Intractable abdominal pain Authorized and Performed by: Keaton Matute MD Total critical care time: Approximately 42 minutes Due to a high probability of clinically significant, life threatening deterioration, the patient required my highest level of preparedness to intervene emergently and I personally spent this critical care time directly and personally managing the patient. This critical care time included obtaining a history; examining the patient; pulse oximetry; ordering and review of studies; arranging urgent treatment with development of a management plan; evaluation of patient's response to treatment; frequent reassessment; and, discussions with other providers. This critical care time was performed to assess and manage the high probability of imminent, life-threatening deterioration that could result in multi-organ failure. It was exclusive of separately billable procedures and treating other patients and teaching time. Please see my other sections and the rest of the note for further information on patient assessment and treatment. Stability Stability form required: No Heart Score Heart Score: Heart Score Response (Comments) Value History N/A 0 EKG N/A 0 Age N/A 0 Risk Factors N/A 0 Troponin N/A 0 Total 0 I personally scribed for KEATON MATUTE MD ([email or web address]) on 01/08/25 at 17:21. Electronically submitted by Zuleyka Amado ([email or web address]). KEATON MATUTE MD Jan 08, 2025 17:21
[2025-01-08 17:32] LABS: Hematocrit 30.1 % (41.0-53.0); Hemoglobin 10.1 g/dL (13.5-17.5); Mean Corpuscular Hemoglobin 29.5 pg (28.0-32.0); Mean Corpuscular Volume 88.0 fL (80.0-100.0); Nucleated Red Blood Cells % 0.1 %
[2025-01-08 17:41] LABS: Chloride 105 mmol/L (98-107); Potassium 4.3 mmol/L (3.5-5.1)
[2025-01-08 17:42] LABS: Anion Gap 9 (5-15); Carbon Dioxide 21 mmol/L (20-31)
[2025-01-08 17:47] LABS: BUN/Creatinine Ratio 22.7 (10.0-20.0); Blood Urea Nitrogen 22 mg/dL (9-23)
[2025-01-08 18:12] LABS: Calcium 8.7 mg/dL (8.7-10.4); Glucose 122 mg/dL (74-106); Sodium 135 mmol/L (136-145)
[2025-01-08 18:27] LABS: Anisocytosis Slight
--- NOTE | 2025-01-08 19:22 | DVH ---
CHEST RADIOGRAPH Indication: abdominal pain Technique: Single frontal view of the chest was obtained Comparison: XY CHEST PORTABLE on DOS: 10/18/24, XY CHEST XRAY 1 VIEW on DOS: 10/17/24 FINDINGS: Lines and Tubes: None Lungs: No focal consolidation. Pleura: No effusion. No pneumothorax. Cardiomediastinal contours: Unremarkable Bones: No acute osseous abnormality. IMPRESSION: No acute cardiopulmonary disease.
--- NOTE | 2025-01-08 19:25 | DVH ---
Exam: CT CT AB PEL WITH IV CON ONLY History: abdominal pain COMPARISON: None Technique: Multidetector spiral CT of the abdomen and pelvis was performed from lung bases to pubic s ymphysis. Intravenous contrast was administered during this examination. Portal venous imaging was obtained. Axial, coronal and sagittal multiplanar reformats were performed by the technologist on a separate workstation. Radiation Dose : 1. Abdomen/Pelvis: CTDIvol 11 mGy, DLP 683 mGy*cm. CONTRAST: Type of contrast: Omnipaque 300 Contrast injected: 100 ml Findings: Lung Bases: No acute or significant lung base finding. Normal heart size. No pleural or pericardial effusion. Liver: Cirrhotic liver. Gallbladder and Biliary Tree: Cholelithiasis. Spleen: Unremarkable Pancreas: The pancreas is normal in appearance without focal lesions or abnormal enhancement. Adrenal Glands: Unremarkable Kidneys: No hydronephrosis. Bladder: Unremarkable Bowel: The stomach is grossly normal in appearance. Small bowel and colon are normal in caliber and d istribution. Normal appendix is visualized in the right lower quadrant without findings of appendici tis. Ascites: Moderate to large abdominopelvic ascites Lymphadenopathy: No mesenteric, retroperitoneal or periportal lymphadenopathy. Abdominal Wall and Mesentery: Unremarkable. Vasculature: The visualized abdominal aorta is normal in size and caliber. Abdominal and pelvic vess els demonstrate normal enhancement. Pelvic Organs: Unremarkable Musculoskeletal: No aggressive focal bony lesions, acute fractures or dislocation. Chronic compressio n deformity of the T12 vertebral body IMPRESSION: 1. Moderate to large abdominopelvic ascites. 2. Cirrhotic liver. 3. Cholelithiasis. Radiation optimization: All CT scans at this facility use at least one of these dose optimization eloina hniques: automated exposure control mA and/or kV adjustment per patient size (includes targeted exam s where dose is matched to clinical indication) or iterative reconstruction.
[2025-01-08] MEDS: IOHEXOL 300 MG/ML 100ML BOTTLE IJ ONE (20:05)
[2025-01-08 20:50] LABS: Alkaline Phosphatase 94.0 U/L (46-116)
[2025-01-08 21:04] LABS: Alanine Aminotransferase 181.0 U/L (7-40); Bilirubin, Total 3.2 mg/dL (0.2-1.0)
[2025-01-08 21:16] LABS: Lactic Acid w/Reflex 3.9 mmol/L (0.4-2.0)
[2025-01-08] MEDS: SODIUM CHLORIDE 0.9% 500 ML IV ONE (21:42)
[2025-01-08] MEDS: SODIUM CHLORIDE 0.9% 1,000 ML IV ONE (22:47)
[2025-01-08] MEDS: cefTRIAXone 1GM/50ML D5W 50 ML IV ONE (22:47)
--- NOTE | 2025-01-08 23:06 | DVHHP2 ---
History of Present Illness History of Present Illness Patient is 64 years old male with past medical history of CAD, HFrEF EF 30%, cirrhosis of liver, hepatitis-C infection, cholelithiasis, chronic subdural hematoma came with a complaint of abdominal pain. As per patient he has been having abdominal pain for last 2 years but which got worse lately. Pain is left side of the abdomen, 10/10, intermittent, crampy, aggravated with movement, radiates to the chest, relieved with pain meds. Patient also complained of abdominal distention lately. On further inquiry patient also reported of exertional shortness of breaths that has been going on for a while but could not mentioned exact duration. Patient denied any fever, dysuria, constipation, dysarthria, acute joint redness or swelling. Initial lab workup revealed hemoglobin 10.1, RDW 20.3, platelet 83, lactic acid 3.9, total bilirubin 3.2, AST 270, ALT 181, troponin I 217> to 13> 193. CXR-No acute cardiopulmonary disease. CT abdomen and pelvis revealed-Moderate to large abdominopelvic ascites. Cirrhotic liver. Cholelithiasis Past Medical History CAD, HFrEF EF 30%, cirrhosis of liver, hepatitis-C infection, cholelithiasis, chronic subdural hematoma Past Surgical History None Family History Father has HTN Past Social History Alcoholic, denies smoking/denies drug abuse, lives with daughter Review of Systems Review of Systems Allergy- NKDA Patient was seen today at the bedside. Cardiovascular- deny acute chest pain or cough or palpitation Respiratory denies cough or or wheezing Gastrointestinal- denies any rectal bleeding, nausea or vomiting Musculoskeletal-denies acute joint swelling or tenderness or redness Neurological- denies acute dysarthria, dysphagia, change in vision Psychiatry- denies depression or SI or HI Skin- denies acute rash or purpura Allergies: Coded Allergies: NO KNOWN ALLERGIES (Unverified , 10/19/24) Medications Current Medications Medications Dose Ordered Sig/Luis Route Start Time Stop Time Status Last Admin Dose Admin Sodium Chloride 10 ml Q8HR IV 01/09/25 06:00 UNV Exam Vital Signs Vital Signs Date Time Temp Pulse Resp B/P (MAP) Pulse Ox O2 Delivery O2 Flow Rate FiO2 01/08/25 20:07 98.0 95 20 95/35 (55) 100 98.0 01/08/25 20:07 Room Air Exam General examination- awake, conversant HEENT- PEERLA, no acute nasal discharge Cardiovascular- S1-S2 audible, rate and rhythm regular, systolic murmur in the right upper paraspinal area Respiratory- CTAB, no wheeze or rhonchi Gastrointestinal- abdominal tenderness+, bowel sound+. Ewrw-vj-ypfbjlgcge distended Musculoskeletal-no acute joint swelling or tenderness or redness Lower extremity- no leg edema Neurological- cranial nerves intact, no acute dysarthria or dysphagia Psychiatry- denies depression or SI or HI Skin- no acute rash or purpura Labs/Xrays Labs Test 01/08/25 22:31 01/08/25 20:16 01/08/25 17:20 Range/Units Lactic Acid Level 2.7 *H 0.4-2.0 mmol/L Troponin I High Sensitivity 213 *H </=54 ng/L White Blood Count 6.7 4.4-10.8 10^3/uL Red Blood Count 3.42 L 4.5-5.90 10^6/uL Hemoglobin 10.1 L 13.5-17.5 g/dL Hematocrit 30.1 L 41.0-53.0 % Mean Corpuscular Volume 88.0 80.0-100.0 fL Mean Corpuscular Hemoglobin 29.5 28.0-32.0 pg Mean Corpuscular Hemoglobin Concent 33.5 32.0-36.0 g/dL Red Cell Distribution Width 20.3 H 11.8-14.3 % Platelet Count 83 L 140-450 10^3/uL Mean Platelet Volume 7.5 6.9-10.8 fL Neutrophils (%) (Auto) 73.6 37.0-80.0 % Lymphocytes (%) (Auto) 16.0 10.0-50.0 % Monocytes (%) (Auto) 6.9 0.0-12.0 % Eosinophils (%) (Auto) 2.9 0.0-7.0 % Basophils (%) (Auto) 0.6 0.0-2.0 % Neutrophils # (Auto) 4.9 1.6-8.6 10 ^3/uL Lymphocytes # (Auto) 1.1 0.4-5.4 10 ^3/uL Monocytes # (Auto) 0.5 0-1.3 10 ^3/uL Eosinophils # (Auto) 0.2 0-0.8 10 ^3/uL Basophils # (Auto) 0 0-0.2 10 ^3/uL Nucleated Red Blood Cells 0.1 % Platelet Estimate Decreased Anisocytosis (manual) Slight Sodium Level 135 L 136-145 mmol/L Potassium Level 4.3 3.5-5.1 mmol/L Chloride Level 105 98-107 mmol/L Carbon Dioxide Level 21 20-31 mmol/L Anion Gap 9 5-15 Blood Urea Nitrogen 22 9-23 mg/dL Creatinine 0.97 0.700-1.30 mg/dL Glomerular Filtration Rate Calc 88 >90 mL/min BUN/Creatinine Ratio 22.7 H 10.0-20.0 Serum Glucose 122 H 74-106 mg/dL Calcium Level 8.7 8.7-10.4 mg/dL Total Bilirubin 3.2 H 0.2-1.0 mg/dL Aspartate Amino Transferase (AST) 270 H 13-40 U/L Alanine Aminotransferase (ALT) 181 H 7-40 U/L Alkaline Phosphatase 94 46-116 U/L SEPSIS Sepsis Screen Date sepsis recognized/suspect: Jan 08, 2025 Time Sepsis recognized/suspect: 1704 Recent Procedure: No On Antibiotic Therapy: No Respiratory Rate >20: No Heart Rate >90: No Temp<36 C (96.8 F) or >38.3 C: No SBP <90 or MAP <65 mmHG: No New Acute Mental Status Change: No Is the patient on CPAP, BIPAP,: No Physician Orders Electrocardigram (01/08/25 17:02) Electrocardigram (01/08/25 18:02) Electrocardigram (01/08/25 20:02) Chest Portable (01/08/25 17:10) Urinalysis (01/08/25 17:10) Ct Ab Pel With Iv Con Only (01/08/25 17:10) Blood Culture (01/08/25 20:25) Sodium Chloride 0.9% (01/08/25 21:30) Admit (01/08/25 23:01) Code Status (01/08/25 23:01) Sodium Chloride Lock (Saline Lock Ns) (01/09/25 06:00) Complete Blood Count (01/09/25 04:00) Comprehensive Metabolic Panel (01/09/25 04:00) Cardiac Diet-2gna,Lofat,Lochol (01/09/25 Breakfast) Notify Of Changes From Base (01/08/25 23:01) Transfer Orders (01/08/25 23:04) PTPTT (01/08/25 23:04) Magnesium (01/08/25 23:04) Ammonia (01/08/25 23:04) Thyroid Stimulating Hormone (01/08/25 23:04) Vital Signs Date Time Temp Pulse Resp B/P (MAP) Pulse Ox O2 Delivery O2 Flow Rate FiO2 01/08/25 20:07 98.0 95 20 95/35 (55) 100 98.0 01/08/25 20:07 95 20 100 Room Air 01/08/25 17:05 97.6 89 18 135/69 (91) 98 97.6 01/08/25 17:04 88 Laboratory Tests Test 01/08/25 17:20 01/08/25 20:42 01/08/25 22:31 White Blood Count 6.7 10^3/uL (4.4-10.8) Lactic Acid Level 3.9 mmol/L (0.4-2.0) *H 2.7 mmol/L (0.4-2.0) *H Medications Medications Dose Ordered Sig/Luis Route Start Time Stop Time Status Last Admin Dose Admin Ceftriaxone Sodium 50 ml @ 100 mls/hr ONCE ONCE IV 01/08/25 21:30 01/08/25 21:59 DC 01/08/25 22:47 100 MLS/HR Sodium Chloride 500 ml @ 500 mls/hr Q1H ONCE IV 01/08/25 21:30 01/08/25 22:29 DC 01/08/25 21:42 500 MLS/HR Assessment/Plan Assessment/Plan Assessment and plan # Acute abdominal pain likely due to spontaneous bacterial peritonitis # acute hepatic decompensation due to cirrhosis of liver # moderate to large ascites # transaminitis # hepatitis-C infection -MELD score 15, estimated 3 month mortality 6% -Maddrey's discriminant function score 25.7-good prognosis -lactulose 30 mg p.o. b.i.d. -continue ceftriaxone 2 g IV daily -continue spironolactone 25 mg p.o. daily -continue Lasix 20 mg p.o. b.i.d. -ordered IR consult for paracentesis # lactic acidosis -continue current conservative management # non STEMI likely type 2 likely due to demand ischemia -Echo on 10/25/2024-EF 30%, global hypokinesia, left atrium and left ventricular enlargement, moderate aortic stenosis, RVSP 25 -continue current conservative management #Thrombocytopenia #Anemia -monitor acute sign or symptom of bleeding -continue ferrous sulfate 325 mg p.o. daily -monitor CBC # HFrEF, LVEF 30% -continue Lasix 20 mg po b.i.d. -continue spironolactone 25 mg p.o. daily #History of alcoholism -continue thiamine supplement as prescribed -continue folic roqi-fkplhlgaj-kqpzfoncrayvtm supplement as prescribed -patient was counseled about the effect of alcoholism on health # chronic Subdural hematoma -monitor clinically Diet-Cardiac diet Goals of care, Code status full code ; discussed with >15 minutes PUD prophylaxis: Pantoprazole DVT prophylaxis: SCD Plan discussed with Dr. Gibbons , nursing staff, Total time spent on patient evaluation, chart review, assessment and plan, discussion discussion >35 minutes Plan discussed with: Patient, Other My Orders Orders - DEVIN MCCLELLAN Procedure Category Date Status Time Admit ADMIT 01/08/25 Transmitted 23:01 Code Status CODE 01/08/25 Transmitted 23:01 Sodium Chloride Lock PHA 01/09/25 Logged (Saline Lock Ns) 06:00 Complete Blood Count LAB 01/09/25 Verified 04:00 Comprehensive LAB 01/09/25 Verified Metabolic Panel 04:00 Cardiac DIET 01/09/25 Transmitted Diet-2gna,Lofat,Lochol Breakfast Notify Of Changes LEROY 01/08/25 In Process From Base 23:01 Transfer Orders XFER 01/08/25 Transmitted 23:04 PTPTT LAB 01/08/25 Verified 23:04 Magnesium LAB 01/08/25 Verified 23:04 Ammonia LAB 01/08/25 Verified 23:04 Thyroid Stimulating LAB 01/08/25 Verified Hormone 23:04 Date of Service: Jan 08, 2025 Billing Provider: MARKUS GIBBONS MD Common Visit Codes: 43540-[id number] INP/OBS CARE (HIGH) Secondary Visit Codes: [id number] CARE PLAN 30 MINUTES DEVIN MCCLELLAN Jan 08, 2025 23:06
[2025-01-08] MEDS ORDERED: cefTRIAXone 2GM/50ML D5W 50 ML IV ONE (23:15)
[2025-01-08 23:28] LABS: INR 1.46 (0.9-1.15); Partial Thromboplastin Time 41.0 SEC (24.5-34.5); Prothrombin Time 14.9 sec (9.3-11.8)
[2025-01-08] MEDS: VANCOMYCIN 1GM/200ML PM 200 ML IV ONE (23:57)
[2025-01-09] VITALS (9 sets, daily range): BP systolic 90–109; BP diastolic 50–73; PULSE 70–109; RESP 14–20; TEMP 98.2–99.2; O2SAT 91–99
[2025-01-09] MEDS: LACTULOSE 20Gm/30ML SOLN PO ONE (01:14)
[2025-01-09] MEDS: SPIRONOLACTONE 25 MG TAB PO ONE (01:14)
[2025-01-09] MEDS: THIAMINE HCL 100 MG TAB PO ONE (01:14)
[2025-01-09 03:42] LABS: Hematocrit 27.2 % (41.0-53.0); Hemoglobin 9.3 g/dL (13.5-17.5); Mean Corpuscular Hemoglobin 30.3 pg (28.0-32.0); Mean Corpuscular Volume 88.2 fL (80.0-100.0); Nucleated Red Blood Cells % 0.0 %
[2025-01-09 03:58] LABS: Alkaline Phosphatase 88 U/L (46-116); Anion Gap 11 (5-15); BUN/Creatinine Ratio 20.0 (10.0-20.0); Blood Urea Nitrogen 20 mg/dL (9-23); Chloride 105 mmol/L (98-107); Potassium 3.9 mmol/L (3.5-5.1); Total Protein 6.3 g/dL (5.7-8.2)
[2025-01-09 04:00] LABS: Alanine Aminotransferase 174 U/L (7-40); Albumin 2.6 g/dL (3.2-4.8); Bilirubin, Total 3.2 mg/dL (0.2-1.0); Calcium 8.2 mg/dL (8.7-10.4); Carbon Dioxide 18 mmol/L (20-31); Glucose 120 mg/dL (74-106); Sodium 134 mmol/L (136-145)
[2025-01-09] MEDS: SODIUM CHLOR 0.9% PF (SALINE LOCK) 10ML VIAL/SYR IV SCH (05:44)
[2025-01-09] MEDS: MIDODRINE HCL 10 MG TAB PO SCH (05:44)
--- NOTE | 2025-01-09 07:42 | DVH ---
CLINICAL INFORMATION: Evaluation of ascites for possible paracentesis. TECHNIQUE: Limited grayscale sonographic imaging of the abdomen was performed to evaluate for ascite s. COMPARISON: US GALLBLADDER on DOS: 10/18/24. CT dated 01/08/2025. FINDINGS: Ascites is visualized in all 4 quadrants, Likely moderate ascites. IMPRESSION: Ascites visualized in all 4 quadrants.
[2025-01-09 09:18] LABS: Lactic Acid w/Reflex 3.5 mmol/L (0.4-2.0)
[2025-01-09] MEDS: cefTRIAXone 2GM/50ML D5W 50 ML IV SCH (09:27)
[2025-01-09] MEDS: LACTULOSE 20Gm/30ML SOLN PO SCH (09:27)
[2025-01-09] MEDS: OLANZapine 5 MG TAB PO SCH (09:27)
[2025-01-09] MEDS: FERROUS SULFATE 325mg EC TAB PO SCH (09:28)
[2025-01-09] MEDS: SPIRONOLACTONE 25 MG TAB PO SCH (09:28)
[2025-01-09] MEDS: RANOLAZINE ER 500 MG TAB PO SCH (09:28)
[2025-01-09] MEDS: ATORVASTATIN 20 MG TAB PO SCH (09:28)
[2025-01-09] MEDS: THIAMINE HCL 100 MG TAB PO SCH (09:28)
[2025-01-09] MEDS: FUROSEMIDE 20 MG TAB PO SCH (09:29)
--- NOTE | 2025-01-09 09:36 | ECG ---
[facility] Test Date: 2025-01-08 Test Time: 17:04:27 Pat Name: PUSHPA BELTRAN Department: ER Room: 0220T Gender: M Cord Cutter: DM : 1960 Requested By: DELTA WHALEN Order Number: [id number] Reading MD: Stalin Schneider Measurements Intervals Bennett Rate: 88 P: 20 OR: 133 QRS: -10 QRSD: 93 T: 39 QT: 396 QTc: 480 Interpretive Statements Sinus rhythm Inferior infarct, old Anterior infarct, old Electronically Signed On 01-14-2025 22:09:03 PDT by Stalin Schneider Please click the below link to view image of tracing.
[2025-01-09] MEDS: FOLIC ACID PYRIDOXINE CYANCOBA PO SCH (10:00)
[2025-01-09] MEDS ORDERED: THIAMINE 100mg/ml INJ (200mg/2ml VIAL) IV SCH (10:00)
[2025-01-09] MEDS: ONDANSETRON HCL 4 MG/2 ML VIAL IV ONE (10:21)
[2025-01-09] MEDS: MORPHINE SULFATE INJ 2 MG/ml SYRG IV ONE (10:22)
--- NOTE | 2025-01-09 13:58 | DVH ---
US PARACENTESIS, HISTORY: ASCITES PROCEDURE: Informed consent was obtained. The patient was placed in supine position. A limited locali zation ultrasound of the abdomen was obtained, and the skin site over the largest pocket of fluid was marked and entry site was prepped with chlorhexidine which was allowed to dry and draped in the usua l sterile fashion. Time out was performed. Following administration of 1% lidocaine local anesthetic, a 5 [place] centesis needle catheter was percutaneously inserted into the peritoneal collection until fluid was aspirated. The catheter was advanced into the fluid collection and the needle removed. Abo ut 1700 cc of fluid was aspirated and specimen sent for appropriate cultures/cytology/cultures and cy tology. The catheter was then removed and a sterile dressing applied. No immediate complication was identified. FINDINGS: Limited ultrasound imaging demonstrates mild ascites. Aspirated fluid was clear and serous. IMPRESSION: US-guided paracentesis with 1.7L removed.
[2025-01-09] MEDS ORDERED: ONDANSETRON HCL 4 MG/2 ML VIAL IV PRN (15:15)
[2025-01-09] MEDS ORDERED: MORPHINE SULFATE INJ 2 MG/ml SYRG IV PRN (15:15)
[2025-01-09 15:28] LABS: Lactic Acid w/Reflex 2.4 mmol/L (0.4-2.0)
[2025-01-09] MEDS: ALBUMIN 25% 100 ML IV ONE (15:36)
--- NOTE | 2025-01-09 16:44 | DVHPNRES ---
Progress Note Date Seen: Jan 09, 2025 Resident Creating Document: CAMERON PERAZA RESIDENT Medical Necessity Reason Pt with a Central, PICC or Fol: No Subjective Review of Systems Abilio Silva is 64 years old male with PMH of CAD, HFrEF EF 30%, cirrhosis of liver, hepatitis-C infection, cholelithiasis, chronic subdural hematoma who came to the ER with a complaints of abdominal pain. Patient reports he was having abdominal pain for the last 2 years but that but has not increased lately. He reports that the pain is in the left side of the umbilicus and rates the intensity as 10/10, intermittent in nature, crampy, more on the left side of the abdomen and is aggravated with movement, radiates to the chest, and is relieved with Advil. Patient also complains that he is short of breath the past few weeks and has realised his abdominal has been more distended in the last week. It was hard for him to walk to kitchen from his room as he easily got breathless. He denied any fever, dysuria, constipation, dysarthria, acute joint redness or swelling. Past Medical History: CAD, HFrEF EF 30%, cirrhosis of liver, hepatitis-C infection, cholelithiasis, chronic subdural hematoma Past Surgical History: None Family History: father has hypertension Past Social History: patient lives with his daughter. Says he has stopped alcohol for 1 and half month but before he used to drink beers 3 cans per day starting from his 20s up to allow. He denies any drug abuse smoking. Home medication: can not recall the name Allergies: None ROS: Patient seen and examined by me in the bedside. Patient complains that he feels bloated,distended and that he is still short of breath when he goes to the bathroom. He also complained of pain abdomen 8/10. Rest of ROS is negative Objective vital signs Vital Sign Date Time Temp Pulse Resp B/P (MAP) Pulse Ox O2 Delivery O2 Flow Rate FiO2 01/09/25 12:38 98.6 70 16 104/73 (83) 94 98.6 01/09/25 08:00 Room Air* 0 21 medications Current Medications Medications Dose Ordered Sig/Luis Route Start Time Stop Time Status Last Admin Dose Admin Sodium Chloride 10 ml Q8HR IV 01/09/25 06:00 01/09/25 14:31 10 ML Ceftriaxone Sodium/Dextrose 50 ml @ 50 mls/hr DAILY IV 01/09/25 10:00 01/09/25 09:27 50 MLS/HR Lactulose 30 ml BID PO 01/09/25 10:00 01/09/25 09:27 30 ML Ferrous Sulfate 325 mg DAILY PO 01/09/25 10:00 01/09/25 09:28 325 MG Furosemide 20 mg BID PO 01/09/25 10:00 01/09/25 09:29 20 MG Midodrine 10 mg TID@0600,1200,1800 PO 01/09/25 06:00 01/09/25 13:50 10 MG Olanzapine 10 mg DAILY PO 01/09/25 10:00 01/09/25 09:27 10 MG Ranolazine 500 mg DAILY PO 01/09/25 10:00 01/09/25 09:28 500 MG Atorvastatin Calcium 40 mg DAILY PO 01/09/25 10:00 01/09/25 09:28 40 MG Patient Own Medication 1 tab DAILY PO 01/09/25 10:00 Spironolactone 25 mg DAILY PO 01/09/25 10:00 01/09/25 09:28 25 MG Thiamine HCl 100 mg DAILY IV 01/10/25 10:00 Folic Acid 1 mg/ Dextrose 50.2 ml @ 200.8 mls/ hr DAILY INJ 01/10/25 10:00 Morphine Sulfate 1 mg Q6HP PRN IV 01/09/25 15:15 Acetaminophen/ Hydrocodone Bitart 1 tab Q6HPRN PRN PO 01/09/25 15:15 Ondansetron HCl 4 mg Q6HPRN PRN IV 01/09/25 15:15 Examination Pt is lying on bed General examination- Alert, Oriented X3, Cooperative, in acute distress HEENT- PEERLA, no acute nasal discharge Cardiovascular- S1-S2 audible, rate and rhythm regular, systolic murmur in the right upper paraspinal area Respiratory- monzon auscultation, no wheeze or rhonchi Gastrointestinal- generalized abdominal tenderness, more on left upper quadrant, presence of bowel sound+. Lmsn-aa-xgecaajc distension due to ascites Musculoskeletal-no acute joint swelling or tenderness or redness Lower extremity- No edema, Normal pulses, No tenderness/swelling Neurological- cranial nerves intact, no acute dysarthria or dysphagia Psychiatry- normal mental status Skin- no acute rash or purpura laboratory and microbiology Laboratory Tests 01/09/25 03:23 Test 01/09/25 03:23 Range/Units Serum Glucose 120 H 74-106 mg/dL Microbiology Date/Time Source Procedure Growth Status 01/09/25 02:45 Nose MRSA Screen - Final Complete 01/08/25 20:42 Blood Blood Culture - Preliminary Resulted Labs and/or images reviewed: Labs reviewed by me, Image(s) reviewed by me Problem List/Assessment/Plan Problem List/Assessment/Plan # Sepsis due to Gram-negative bacteremia-ordered 2nd set of blood cultures # ? Spontaneous bacterial peritonitis # Acute decompensation of liver cirrhosis from mixed alcohol/hep C # moderate to large ascites s/p paracentesis # transaminitis due to above # hepatitis-C infection # lactic acidosis likely from sepsis # Thrombocytopenia from liver cirrhosis # Anemia of chronic liver disease-monitor lab - [facility] discrimination score 16.5 which is good prognosis - Meld score 15 points which is 6% estimated three-month mortality -lactulose 30 mg p.o. b.i.d. -continue ceftriaxone 2 g IV daily -continue spironolactone 25 mg p.o. and continue Lasix 20 mg p.o. b.i.d. -CT abdomen and pelvis revealed- Moderate to large abdominopelvic ascites. Cirrhotic liver. - ordered IR consult for paracentesis: 1700ml of serous fluid removed and specimen to be sent to lab. - lactic acid levels was 3.5, repeat lactic acid levels after paracentesis - albumin added 1 bag - fluid sent for analysis, culture # NSTEMI likely type 2 likely due to demand ischemia -Echo on 10/25/2024-EF 30%, global hypokinesia -continue current conservative management # ? HFrEF, exacerbation LVEF 30% -continue Lasix 20 mg po b.i.d. -continue spironolactone 25 mg p.o. daily -elevated BNP # history of alcoholism -continue thiamine supplement as prescribed -continue folic llyk-kfxkngxhc-ebpfbuyxkspsqs supplement as prescribed -patient was counseled about the effect of alcoholism on health # chronic subdural hematoma -monitor clinically # Cholelithiasis -As seen in CT -out-patient follow-up recommended GI prophylaxis: pantoprazole DVT prophylaxis: SCDs due to thrombocytopenia and chronic subdural hematoma Diet: cardiac diet Goals of care discussed with the patient for 20 minutes: Full code status Case discussed with Dr. Martinez patient and nurse. Plan discussed with: Patient, Other (rn) My Orders My Orders Orders - CAMERON PERAZA RESIDENT Procedure Category Date Status Time Folic Acid PHA 01/10/25 In Process 10:00 Thiamine Inj PHA 01/10/25 In Process 10:00 Addendum Addendum Addendum I was physically present for the stover portions of the service provided to patient by THE RESIDENT. I have reviewed the documentation, discussed the case with resident and agree with the resident's documentation except as noted. Also the patient's clinical case was discussed with the patient's nurse. This medical document was created using an electronic medical record system with computerized dictation system. Although this document has been carefully reviewed, there might still be some phonetic and typographical errors. These areas are purely typographical due to imperfections of the software programs, and do not reflect any compromise in the patient's medical care. Late signature. Date of Service: Jan 09, 2025 Billing Provider: STEVE MARTINEZ MD Common Visit Codes: [id number] INP/OBS CARE(HIGH) Secondary Visit Codes: [id number] CARE PLAN 30 MINUTES (20 minutes) CAMERON PERAZA RESIDENT Jan 09, 2025 16:44 DANIEL MIRANDA RESIDENT Jan 09, 2025 18:24 STEVE MARTINEZ MD Jan 11, 2025 22:09
[2025-01-09 22:31] LABS: Lactic Acid w/Reflex 2.9 mmol/L (0.4-2.0)
[2025-01-10] VITALS (8 sets, daily range): BP systolic 90–109; BP diastolic 54–69; PULSE 92–125; RESP 17–20; TEMP 97.4–98.7; O2SAT 89–96
[2025-01-10] MEDS: HYDROcodone-ACET 5/325MG TAB PO PRN (01:52)
[2025-01-10 06:11] LABS: Hematocrit 24.4 % (41.0-53.0); Hemoglobin 8.2 g/dL (13.5-17.5); Mean Corpuscular Hemoglobin 29.8 pg (28.0-32.0); Mean Corpuscular Volume 88.4 fL (80.0-100.0); Nucleated Red Blood Cells % 0.1 %
[2025-01-10 06:25] LABS: Alkaline Phosphatase 85 U/L (46-116); Anion Gap 13 (5-15); BUN/Creatinine Ratio 17.6 (10.0-20.0); Blood Urea Nitrogen 21 mg/dL (9-23); Calcium 8.9 mg/dL (8.7-10.4); Chloride 106 mmol/L (98-107); Potassium 4.6 mmol/L (3.5-5.1); Total Protein 6.0 g/dL (5.7-8.2)
[2025-01-10 06:29] LABS: Alanine Aminotransferase 124 U/L (7-40); Albumin 2.7 g/dL (3.2-4.8); Bilirubin, Total 3.0 mg/dL (0.2-1.0); Carbon Dioxide 15 mmol/L (20-31); Sodium 134 mmol/L (136-145)
[2025-01-10] MEDS ORDERED: SODIUM CHLORIDE 0.9% 250 ML IV ONE (06:45)
[2025-01-10 07:04] LABS: Glucose 132 mg/dL (74-106)
[2025-01-10] MEDS: THIAMINE 100mg/ml INJ (200mg/2ml VIAL) IV SCH (09:23)
[2025-01-10] MEDS: PIPERACILLIN-TAZOB 3.375GM 100 ML IV ONE (09:29)
--- NOTE | 2025-01-10 11:51 | DVHPNRES ---
Progress Note Date Seen: Jan 10, 2025 Resident Creating Document: CAMERON PERAZA RESIDENT Medical Necessity Reason Pt with a Central, PICC or Fol: No Subjective Review of Systems Abilio Silva is 64 years old male with PMH of CAD, HFrEF EF 30%, cirrhosis of liver, hepatitis-C infection, cholelithiasis, chronic subdural hematoma who came to the ER with a complaints of abdominal pain. Patient reports he was having abdominal pain for the last 2 years but that but has not increased lately. He reports that the pain is in the left side of the umbilicus and rates the intensity as 10/10, intermittent in nature, crampy, more on the left side of the abdomen and is aggravated with movement, radiates to the chest, and is relieved with Advil. Patient also complains that he is short of breath the past few weeks and has realised his abdominal has been more distended in the last week. It was hard for him to walk to kitchen from his room as he easily got breathless. He denied any fever, dysuria, constipation, dysarthria, acute joint redness or swelling. Past Medical History: CAD, HFrEF EF 30%, cirrhosis of liver, hepatitis-C infection, cholelithiasis, chronic subdural hematoma Past Surgical History: None Family History: father has hypertension Past Social History: patient lives with his daughter. Says he has stopped alcohol for 1 and half month but before he used to drink beers 3 cans per day starting from his 20s up to allow. He denies any drug abuse smoking. Home medication: can not recall the name Allergies: None ROS: Patient seen and examined by me in the bedside. Patient reports that he is feeling better and the pain in his abdomen has decreased. He has gone to the bathroom twice this morning. Last night at 1:00 a.m. he reports his abdomen hurt but now feels like the pain is mild. Rest of ROS is negative Objective vital signs Vital Sign Date Time Temp Pulse Resp B/P (MAP) Pulse Ox O2 Delivery O2 Flow Rate FiO2 01/10/25 09:22 109/69 01/10/25 09:00 98.7 108 17 93 98.7 01/10/25 07:54 Room Air* 0 21 Total Intake and Output 01/09/25 01/09/25 01/10/25 15:00 23:00 07:00 Intake Total 150 ml 210 ml Balance 150 ml 210 ml medications Current Medications Medications Dose Ordered Sig/Luis Route Start Time Stop Time Status Last Admin Dose Admin Sodium Chloride 10 ml Q8HR IV 01/09/25 06:00 01/10/25 06:20 10 ML Lactulose 30 ml BID PO 01/09/25 10:00 01/10/25 09:16 30 ML Ferrous Sulfate 325 mg DAILY PO 01/09/25 10:00 01/10/25 09:18 325 MG Furosemide 20 mg BID PO 01/09/25 10:00 01/10/25 09:22 20 MG Midodrine 10 mg TID@0600,1200,1800 PO 01/09/25 06:00 01/10/25 06:19 10 MG Olanzapine 10 mg DAILY PO 01/09/25 10:00 01/10/25 09:19 10 MG Ranolazine 500 mg DAILY PO 01/09/25 10:00 01/10/25 09:19 500 MG Atorvastatin Calcium 40 mg DAILY PO 01/09/25 10:00 01/10/25 09:20 40 MG Patient Own Medication 1 tab DAILY PO 01/09/25 10:00 Spironolactone 25 mg DAILY PO 01/09/25 10:00 01/10/25 09:22 25 MG Thiamine HCl 100 mg DAILY IV 01/10/25 10:00 01/10/25 09:23 100 MG Folic Acid 1 mg/ Dextrose 50.2 ml @ 200.8 mls/ hr DAILY INJ 01/10/25 10:00 Morphine Sulfate 1 mg Q6HP PRN IV 01/09/25 15:15 Acetaminophen/ Hydrocodone Bitart 1 tab Q6HPRN PRN PO 01/09/25 15:15 01/10/25 01:52 1 TAB Ondansetron HCl 4 mg Q6HPRN PRN IV 01/09/25 15:15 Piperacillin Sod/ Tazobactam Sod 100 ml @ 25 mls/hr Q8HR IV 01/10/25 14:00 Examination Pt is lying on bed General examination- Alert, Oriented X3, Cooperative HEENT- PEERLA, no acute nasal discharge Cardiovascular- S1-S2 audible, regular rate and rhythm, systolic murmur in the right upper paraspinal region Respiratory- normal auscultation, no abnormal breath sounds heard Gastrointestinal- presence of bowel sound+, mild generalized abdominal tenderness= more on upper and lower left quadrant on palpation, Mild distension Musculoskeletal-no acute joint swelling or tenderness or redness Lower extremity- No edema, Normal pulses, No tenderness/swelling Neurological- no sensorimotor deficits noted Psychiatry- normal mental status Skin- no acute rash or purpura, presence of bandage where paracentesis was done laboratory and microbiology Laboratory Tests 01/10/25 04:42 Test 01/10/25 04:42 Range/Units Serum Glucose 132 H 74-106 mg/dL Microbiology Date/Time Source Procedure Growth Status 01/09/25 10:50 Ascities Fluid Gram Stain Pending Resulted 01/09/25 10:50 Ascities Fluid Body Fluid Culture - Preliminary Resulted 01/09/25 02:45 Nose MRSA Screen - Final Complete 01/08/25 20:42 Blood Blood Culture - Preliminary Resulted Labs and/or images reviewed: Labs reviewed by me, Image(s) reviewed by me Problem List/Assessment/Plan Problem List/Assessment/Plan # Sepsis due to Gram-negative bacteremia-ordered 2nd set of blood cultures, pending # ? Spontaneous bacterial peritonitis # Acute decompensation liver cirrhosis from mixed alcohol/hep C # moderate to large ascites s/p paracentesis # transaminitis likely above # hepatitis-C infection # lactic acidosis from sepsis # Thrombocytopenia from liver cirrhosis # Anemia of chronic liver disease-monitor lab - [facility] discrimination score 16.5 which is good prognosis - Meld score 15 points which is 6% estimated three-month mortality -lactulose 30 mg p.o. b.i.d. -continue ceftriaxone 2 g IV daily -continue spironolactone 25 mg p.o. and continue Lasix 20 mg p.o. b.i.d. -CT abdomen and pelvis revealed- Moderate to large abdominopelvic ascites. Cirrhotic liver. - ordered IR consult for paracentesis: 1700ml of serous fluid removed and specimen to be sent to lab. - lactic acid levels was 3.5, repeat lactic acid levels after paracentesis - albumin added 1 bag - fluid sent for analysis, culture, prelim no growth # NSTEMI likely type 2 likely due to demand ischemia -Echo on 10/25/2024-EF 30%, global hypokinesia -continue current conservative management # ? HFrEF, exacerbation LVEF 30% -continue Lasix 20 mg po b.i.d. -continue spironolactone 25 mg p.o. daily -elevated BNP # history of alcoholism -continue thiamine supplement as prescribed -continue folic auze-gmsfbhdgq-sacisshmobkgnx supplement as prescribed -patient was counseled about the effect of alcoholism on health # chronic subdural hematoma -monitor clinically # Cholelithiasis -As seen in CT -out-patient follow-up recommended GI prophylaxis: pantoprazole DVT prophylaxis: SCDs due to above Diet: cardiac diet Case discussed with Dr. Martinez patient and nurse. Plan discussed with: Patient, Other (rn) My Orders My Orders Orders - CAMERON PERAZA RESIDENT Procedure Category Date Status Time Folic Acid PHA 01/10/25 In Process 10:00 Thiamine Inj PHA 01/10/25 In Process 10:00 Addendum Addendum Addendum I was physically present for the stover portions of the service provided to patient by THE RESIDENT. I have reviewed the documentation, discussed the case with resident and agree with the resident's documentation except as noted. Also the patient's clinical case was discussed with the patient's nurse. This medical document was created using an electronic medical record system with computerized dictation system. Although this document has been carefully reviewed, there might still be some phonetic and typographical errors. These areas are purely typographical due to imperfections of the software programs, and do not reflect any compromise in the patient's medical care. Late signature. Date of Service: Jan 10, 2025 Billing Provider: STEVE MARTINEZ MD Common Visit Codes: [id number] INP/OBS CARE(HIGH) CAMERON PERAZA RESIDENT Jan 10, 2025 11:51 DANIEL MIRANDA RESIDENT Jan 10, 2025 16:46 STEVE MARTINEZ MD Jan 11, 2025 22:11
[2025-01-10 12:07] LABS: Glucose, Body Fluid 136.0 mg/dL (.); LD, Body Fluid 86.0 IU/L (.)
[2025-01-10] MEDS: FOLIC ACID 1 MG in D5W 5% 50 ML INJ SCH (12:53)
[2025-01-10] MEDS: PIPERACILLIN-TAZOB 3.375GM 100 ML IV SCH (13:26)
[2025-01-10 19:42] LABS: Urine Protein, UAD Negative (Negative)
[2025-01-10 19:54] LABS: Opiate Scree,Urine Neg (NEGATIVE)
[2025-01-10 19:57] LABS: Amphetamine Screen, Urine Neg (NEGATIVE); Barbiturate Scree,Urine Neg (NEGATIVE); Benzodiazephine Screen, Urine Neg (NEGATIVE); Cannabinoid Screen, Urine Neg (NEGATIVE); Cocaine Screen, Urine Neg (NEGATIVE); Phencyclidine Screen, Urine Neg (NEGATIVE)
[2025-01-11] VITALS (7 sets, daily range): BP systolic 99–138; BP diastolic 62–92; PULSE 90–107; RESP 16–18; TEMP 98–98.6; O2SAT 90–99
[2025-01-11 05:36] LABS: Hematocrit 25.4 % (41.0-53.0); Hemoglobin 8.5 g/dL (13.5-17.5); Mean Corpuscular Hemoglobin 30.0 pg (28.0-32.0); Mean Corpuscular Volume 90.1 fL (80.0-100.0); Nucleated Red Blood Cells % 0.0 %
[2025-01-11 06:00] LABS: Alkaline Phosphatase 73 U/L (46-116); Anion Gap 11 (5-15); BUN/Creatinine Ratio 15.0 (10.0-20.0); Blood Urea Nitrogen 19 mg/dL (9-23); Chloride 107 mmol/L (98-107); Potassium 4.1 mmol/L (3.5-5.1); Total Protein 5.8 g/dL (5.7-8.2)
[2025-01-11 06:02] LABS: Alanine Aminotransferase 100 U/L (7-40); Albumin 2.5 g/dL (3.2-4.8); Bilirubin, Total 3.8 mg/dL (0.2-1.0); Calcium 8.1 mg/dL (8.7-10.4); Carbon Dioxide 17 mmol/L (20-31); Glucose 120 mg/dL (74-106); Sodium 135 mmol/L (136-145)
--- NOTE | 2025-01-11 14:55 | DVH ---
ULTRASOUND ABDOMEN limited, 4 QUADRANTS INDICATION: ascitis fluid check Evaluate for ascites. TECHNIQUE: The four quadrants of the abdomen were scanned in renteria-scale to assess for the presence of ascites. N o solid organ assessment was performed. FINDINGS/IMPRESSIONS: Small volume ascites. Partially visualized moderate right pleural effusion and trace left pleural eff usion.
--- NOTE | 2025-01-11 15:03 | DVH ---
CHEST RADIOGRAPH Indication: sob Technique: Single frontal view of the chest was obtained COMPARISON: XY CHEST PORTABLE on DOS: 01/08/25, XY CHEST PORTABLE on DOS: 10/18/24, XY CHEST XRAY 1 VIE W on DOS: 10/17/24 FINDINGS: Lines and Tubes: None Lungs: Diffuse increased interstitial prominence Pleura: No effusion. No pneumothorax. Cardiomediastinal contours: Unremarkable Bones: Unremarkable IMPRESSION: Pulmonary vascular congestion or viral pneumonias
--- NOTE | 2025-01-11 15:16 | DVH ---
CT HEAD WITHOUT CONTRAST Indication: [facility] EXAM DATE: 01/11/2025 02:39 PM COMPARISON: CT HEAD WITHOUT CONTRAST on DOS: 10/25/24 TECHNIQUE: CT of the head without intravenous contrast. RADIATION DOSE: CTDIvol: 55 mGy, DLP: 968 mGy*cm FINDINGS: m there is a right frontoparietal chronic appearing subdural hematoma measuring 5 mm in thickness, si milar to the previous examination. Moderate global cerebral volume loss. Ventricles are midline and n ormal in size. Thxe-ks-yfdgassn periventricular and subcortical white matter chronic microvascular is chemic changes. The paranasal sinuses and mastoids are well-pneumatized. Imaged portion of the orbits are unremarkabl e. IMPRESSION: Chronic appearing right frontoparietal subdural hematoma, similar to previous examination. No midline shift. No acute intracranial hemorrhage. Wtgq-mu-fbvcdpra chronic microvascular ischemic changes. Moderate global cerebral volume loss.
--- NOTE | 2025-01-11 15:26 | DVHPNRES ---
Progress Note Date Seen: Jan 11, 2025 Resident Creating Document: CAMERON PERAZA RESIDENT Medical Necessity Reason Pt with a Central, PICC or Fol: No Subjective Review of Systems Abilio Silva is a 64 years old male with PMH of CAD, HFrEF EF 30%, cirrhosis of liver, hepatitis-C infection, cholelithiasis, chronic subdural hematoma who came to the ER with a complaints of abdominal pain. Patient reports he was having abdominal pain for the last 2 years but that but has not increased lately. He reports that the pain is in the left side of the umbilicus and rates the intensity as 10/10, intermittent in nature, crampy, more on the left side of the abdomen and is aggravated with movement, radiates to the chest, and is relieved with Advil. Patient also complains that he is short of breath the past few weeks and has realised his abdominal has been more distended in the last week. It was hard for him to walk to kitchen from his room as he easily got breathless. He denied any fever, dysuria, constipation, dysarthria, acute joint redness or swelling. Past Medical History: CAD, HFrEF EF 30%, cirrhosis of liver, hepatitis-C infection, cholelithiasis, chronic subdural hematoma Past Surgical History: None Family History: father has hypertension Past Social History: patient lives with his daughter. Says he has stopped alcohol for 1 and half month but before he used to drink beers 3 cans per day starting from his 20s up to allow. He denies any drug abuse smoking. Home medication: can not recall the name Allergies: None Patient seen and examined by me in the bedside. overnight events reviewed. Patient complained that in the middle of the night he had a shooting pain in his epigastric reg/ion that was a 5/10 intensity, the went away by itself. He reports feeling a little bloated today and that they are still generalized abdominal pain more on his left side. He also complains of his mouth feeling dry. Rest of ROS is negative. Today afternoon patient has been little altered and requiring on and off oxygen, reported head CT showed chronic subdural hematoma with unchanged size/shape and USG abd showed [id number] pleural effusion. Tomorrow we will do chest ultrasound to evaluate severity of pleural effusion. Objective vital signs Vital Sign Date Time Temp Pulse Resp B/P (MAP) Pulse Ox O2 Delivery O2 Flow Rate FiO2 01/11/25 09:58 111/56 01/11/25 09:00 107 18 97 01/11/25 08:00 Room Air* 0 21 01/11/25 05:00 98.0 98.0 Total Intake and Output 01/10/25 01/10/25 01/11/25 15:00 23:00 07:00 Intake Total 400.2 ml 400 ml Output Total 500 ml Balance 400.2 ml -100 ml medications Current Medications Medications Dose Ordered Sig/Luis Route Start Time Stop Time Status Last Admin Dose Admin Sodium Chloride 10 ml Q8HR IV 01/09/25 06:00 01/11/25 05:20 10 ML Lactulose 30 ml BID PO 01/09/25 10:00 01/11/25 10:02 30 ML Ferrous Sulfate 325 mg DAILY PO 01/09/25 10:00 01/11/25 09:57 325 MG Furosemide 20 mg BID PO 01/09/25 10:00 01/11/25 09:58 20 MG Midodrine 10 mg TID@0600,1200,1800 PO 01/09/25 06:00 01/11/25 13:09 10 MG Olanzapine 10 mg DAILY PO 01/09/25 10:00 01/11/25 10:01 10 MG Ranolazine 500 mg DAILY PO 01/09/25 10:00 01/11/25 10:04 500 MG Atorvastatin Calcium 40 mg DAILY PO 01/09/25 10:00 01/11/25 10:00 40 MG Patient Own Medication 1 tab DAILY PO 01/09/25 10:00 Spironolactone 25 mg DAILY PO 01/09/25 10:00 01/11/25 09:57 25 MG Thiamine HCl 100 mg DAILY IV 01/10/25 10:00 01/10/25 09:23 100 MG Folic Acid 1 mg/ Dextrose 50.2 ml @ 200.8 mls/ hr DAILY INJ 01/10/25 10:00 01/11/25 12:43 200.8 MLS/HR Morphine Sulfate 1 mg Q6HP PRN IV 01/09/25 15:15 Acetaminophen/ Hydrocodone Bitart 1 tab Q6HPRN PRN PO 01/09/25 15:15 01/10/25 01:52 1 TAB Ondansetron HCl 4 mg Q6HPRN PRN IV 01/09/25 15:15 Piperacillin Sod/ Tazobactam Sod 100 ml @ 25 mls/hr Q8HR IV 01/10/25 14:00 01/11/25 05:20 25 MLS/HR Examination Pt is lying on bed General examination- Alert, Oriented to time place and person, mildly distress HEENT- PEERLA, no acute nasal discharge Cardiovascular- S1-S2 audible, regular rate and rhythm, systolic murmur in the right upper paraspinal region Respiratory- normal auscultation, no abnormal breath sounds heard Gastrointestinal- presence of bowel sound+, generalized abdominal tenderness more on the left upper and lower quadrant, Mild distension Musculoskeletal-no acute joint swelling or tenderness or redness Lower extremity- No edema, Normal pulses, No tenderness Neurological- no sensorimotor deficits noted Psychiatry- confused Skin- no acute rash or purpura, bandage where paracentesis was done laboratory and microbiology Laboratory Tests 01/11/25 04:53 Test 01/11/25 04:53 Range/Units Serum Glucose 120 H 74-106 mg/dL Microbiology Date/Time Source Procedure Growth Status 01/09/25 17:05 Blood Blood Culture - Preliminary NO GROWTH AFTER 24 HOURS OF INCUBATION. Resulted 01/09/25 10:50 Ascities Fluid Gram Stain - Final Resulted 01/09/25 10:50 Ascities Fluid Body Fluid Culture - Preliminary Resulted 01/09/25 02:45 Nose MRSA Screen - Final Complete Labs and/or images reviewed: Labs reviewed by me, Image(s) reviewed by me Problem List/Assessment/Plan Problem List/Assessment/Plan # ? Acute toxic/metabolic encephalopathy, unspecified etiology for now from ? Bacteremia # ? Acute hypoxic respiratory failure likely from effusion/ascites - USG Abd showed small ascites and moderate right pleural effusion and trace left pleural effusion. - head CT showed chronic right frontoparietal subdural hematoma, similar to previous examination and chronic microvascular changes with global cerebral loss - repeated ammonia is normal - CXR showed Pulmonary vascular congestion or viral pneumonias # Gram-negative bacteremia-ordered 2nd set of blood cultures, preliminary negative # ? Spontaneous bacterial peritonitis # Acute decompensation liver cirrhosis likely from mixed alcohol/hep C # moderate to large ascites s/p paracentesis # transaminitis likely above # hepatitis-C infection # lactic acidosis likely from decompensation # Thrombocytopenia likely from liver cirrhosis # Anemia of chronic liver disease-monitor lab - Maddrey discrimination score 16.5 which is good prognosis - Meld score 15 points which is 6% estimated three-month mortality -lactulose 30 mg p.o. b.i.d. - Discontinue ceftriaxone switched to Zosyn -continue spironolactone 25 mg p.o. and continue Lasix 20 mg p.o. b.i.d. -CT abdomen and pelvis revealed- Moderate to large abdominopelvic ascites. Cirrhotic liver. - ordered IR consult for paracentesis: 1700ml of serous fluid removed and specimen to be sent to lab. - lactic acid levels was 3.5, lactic acid levels after paracentesis 3.0 - albumin added 1 bag - fluid sent for analysis, culture, prelim no growth # NSTEMI likely type 2 likely due to demand ischemia -Echo on 10/25/2024-EF 30%, global hypokinesia -continue current conservative management # ? HFrEF, exacerbation LVEF 30% -continue Lasix 20 mg po b.i.d. -continue spironolactone 25 mg p.o. daily -elevated BNP # history of alcoholism -continue thiamine supplement as prescribed -continue folic hdic-xntulcjpr-ournjvgosexgft supplement as prescribed -patient was counseled about the effect of alcoholism on health # chronic subdural hematoma -monitor clinically # Cholelithiasis -As seen in CT -out-patient follow-up recommended GI prophylaxis: pantoprazole DVT prophylaxis: SCD Diet: cardiac diet Case discussed with Dr. Martinez patient and nurse. Today afternoon patient has been little altered and requiring on and off oxygen, reported head CT showed chronic subdural hematoma with unchanged size/shape and USG abd showed [id number] pleural effusion. Tomorrow we will do chest ultrasound to evaluate severity of pleural effusion. Plan discussed with: Patient, Other (rn) Addendum Addendum Addendum I was physically present for the stover portions of the service provided to patient by THE RESIDENT. I have reviewed the documentation, discussed the case with resident and agree with the resident's documentation except as noted. Also the patient's clinical case was discussed with the patient's nurse. This medical document was created using an electronic medical record system with computerized dictation system. Although this document has been carefully reviewed, there might still be some phonetic and typographical errors. These areas are purely typographical due to imperfections of the software programs, and do not reflect any compromise in the patient's medical care. Late signature. Date of Service: Jan 11, 2025 Billing Provider: STEVE MARTINEZ MD Common Visit Codes: 11791-[id number] INP/OBS CARE(HIGH) CAMERON PERAZA RESIDENT Jan 11, 2025 15:26 DANIEL MIRANDA RESIDENT Jan 11, 2025 16:44 STEVE MARTINEZ MD Jan 12, 2025 06:49
[2025-01-12 01:00] VITALS: BP 122/64; PULSE 102; RESP 18; TEMP 97.8; O2SAT 92
[2025-01-12 05:00] VITALS: BP 112/70; PULSE 104; RESP 18; TEMP 97.5; O2SAT 94
[2025-01-12 06:30] LABS: Hematocrit 23.8 % (41.0-53.0); Hemoglobin 8.2 g/dL (13.5-17.5); Mean Corpuscular Hemoglobin 30.7 pg (28.0-32.0); Mean Corpuscular Volume 89.5 fL (80.0-100.0); Nucleated Red Blood Cells % 0.1 %
[2025-01-12 06:42] LABS: Alkaline Phosphatase 83 U/L (46-116); Anion Gap 15 (5-15); BUN/Creatinine Ratio 17.7 (10.0-20.0); Blood Urea Nitrogen 23 mg/dL (9-23); Chloride 105 mmol/L (98-107); Sodium 137 mmol/L (136-145); Total Protein 6.1 g/dL (5.7-8.2)
[2025-01-12 06:53] LABS: Alanine Aminotransferase 91 U/L (7-40); Albumin 2.7 g/dL (3.2-4.8); Bilirubin, Total 4.6 mg/dL (0.2-1.0); Calcium 8.3 mg/dL (8.7-10.4); Carbon Dioxide 17 mmol/L (20-31); Glucose 144 mg/dL (74-106); Potassium 3.5 mmol/L (3.5-5.1)
[2025-01-12 06:56] LABS: Lactic Acid w/Reflex 5.2 mmol/L (0.4-2.0)
[2025-01-12 08:00] VITALS: PULSE 114
[2025-01-12 09:00] VITALS: BP 111/81; PULSE 104; RESP 21; TEMP 96.9; O2SAT 95
[2025-01-12] MEDS ORDERED: AUG875T PO (12:34)
[2025-01-12] MEDS ORDERED: SPIR25TA PO (14:46)
[2025-01-12] MEDS ORDERED: LACT10SO3 PO (14:46)
--- NOTE | 2025-01-12 14:51 | DVHDSRES ---
Discharge Summary Date of Admission Resident Creating Document: DANIEL MIRANDA RESIDENT Jan 08, 2025 at 23:01 Date of Discharge: Jan 12, 2025 Admitting Diagnosis Abdominal pain Labs/Diagnostic Data: Laboratory Results Test 01/12/25 05:59 01/11/25 14:35 01/10/25 17:45 01/09/25 10:50 White Blood Count 7.0 10^3/uL (4.4-10.8) Red Blood Count 2.66 10^6/uL (4.5-5.90) Hemoglobin 8.2 g/dL (13.5-17.5) Hematocrit 23.8 % (41.0-53.0) Mean Corpuscular Volume 89.5 fL (80.0-100.0) Mean Corpuscular Hemoglobin 30.7 pg (28.0-32.0) Mean Corpuscular Hemoglobin Concent 34.3 g/dL (32.0-36.0) Red Cell Distribution Width 20.8 % (11.8-14.3) Platelet Count 98 10^3/uL (140-450) Mean Platelet Volume 7.2 fL (6.9-10.8) Neutrophils (%) (Auto) 79.4 % (37.0-80.0) Lymphocytes (%) (Auto) 12.9 % (10.0-50.0) Monocytes (%) (Auto) 6.4 % (0.0-12.0) Eosinophils (%) (Auto) 1.0 % (0.0-7.0) Basophils (%) (Auto) 0.3 % (0.0-2.0) Neutrophils # (Auto) 5.6 10 ^3/uL (1.6-8.6) Lymphocytes # (Auto) 0.9 10 ^3/uL (0.4-5.4) Monocytes # (Auto) 0.5 10 ^3/uL (0-1.3) Eosinophils # (Auto) 0.1 10 ^3/uL (0-0.8) Basophils # (Auto) 0 10 ^3/uL (0-0.2) Nucleated Red Blood Cells 0.1 % Sodium Level 137 mmol/L (136-145) Potassium Level 3.5 mmol/L (3.5-5.1) Chloride Level 105 mmol/L (98-107) Carbon Dioxide Level 17 mmol/L (20-31) Anion Gap 15 (5-15) Blood Urea Nitrogen 23 mg/dL (9-23) Creatinine 1.30 mg/dL (0.700-1.30) Glomerular Filtration Rate Calc 62 mL/min (>90) BUN/Creatinine Ratio 17.7 (10.0-20.0) Serum Glucose 144 mg/dL (74-106) Lactic Acid Level 5.2 mmol/L (0.4-2.0) Calcium Level 8.3 mg/dL (8.7-10.4) Total Bilirubin 4.6 mg/dL (0.2-1.0) Aspartate Amino Transferase (AST) 149 U/L (13-40) Alanine Aminotransferase (ALT) 91 U/L (7-40) Alkaline Phosphatase 83 U/L (46-116) Total Protein 6.1 g/dL (5.7-8.2) Albumin 2.7 g/dL (3.2-4.8) Ammonia 18 umol/L (11-32) Urine Color Yellow (Yellow) Urine Clarity Clear (Clear) Urine pH 5.0 (5.0-9.0) Urine Specific [place] 1.019 (1.001-1.035) Urine Protein Negative (Negative) Urine Ketones Negative (Negative) Urine Blood Negative /uL (Negative) Urine Nitrite Negative (Negative) Urine Bilirubin Negative (Negative) Urine Urobilinogen Normal mg/dL (Negative) Urine Leukocyte Esterase Negative /uL (Negative) Urine RBC 2 /hpf (0 - 3) Urine Microscopic WBC 3 /HPF (0-3) Urine Squamous Epithelial Cells Few /hpf (<5) Urine Bacteria None seen /hpf (None Seen) Urine Hyaline Casts Few /lpf (0 - 2) Urine Glucose Normal mg/dL (Normal) Urine Opiates Screen Neg (NEGATIVE) Urine Fentanyl Screen Neg (NEGATIVE) Urine Barbiturates Screen Neg (NEGATIVE) Urine Phencyclidine Screen Neg (NEGATIVE) Urine Amphetamines Screen Neg (NEGATIVE) Urine Benzodiazepines Screen Neg (NEGATIVE) Urine Cocaine Screen Neg (NEGATIVE) Urine Cannabinoids Screen Neg (NEGATIVE) Body Fluid Source Ascites Body Fluid pH 8.0 Body Fluid WBC (Manual) 1320 CUMM (0-200) Body Fluid RBC (Manual) 948 CUMM (0-2000) Body Fluid Mononuclear Cells 40 % Body Fluid Polymorphonuclear Cells 60 % (0-25) Body Fluid Glucose 136 mg/dL (.) Body Fluid Total Protein 1.2 g/dL (.) Body Fluid Lactate Dehydrogenase 86 IU/L (.) Test 01/09/25 03:23 01/08/25 20:42 01/08/25 20:16 01/08/25 17:20 Hemoglobin A1c 4.6 % A1C (<5.7) B-Type Natriuretic Peptide 696.98 pg/mL (0-100) Plasma/Serum Blood Alcohol < 3.0 mg/dL (<10) Prothrombin Time 14.9 sec (9.3-11.8) Prothrombin Time INR 1.46 (0.9-1.15) Activated Partial Thromboplast Time 41.0 SEC (24.5-34.5) Magnesium Level 2.1 mg/dL (1.6-2.6) Troponin I High Sensitivity 213 ng/L (</=54) Thyroid Stimulating Hormone (TSH) 4.72 uIU/mL (0.55-4.78) Platelet Estimate Decreased Anisocytosis (manual) Slight Other Laboratory Tests 01/12/25 05:59 Brief Hx & Hospital Course: Abilio Silva is a 64 years old male with PMH of CAD, HFrEF EF 30%, cirrhosis of liver, hepatitis-C infection, cholelithiasis, chronic subdural hematoma who came to the ER with a complaints of abdominal pain. Patient reports he was having abdominal pain for the last 2 years but that but has not increased lately. He reports that the pain is in the left side of the umbilicus and rates the intensity as 10/10, intermittent in nature, crampy, more on the left side of the abdomen and is aggravated with movement, radiates to the chest, and is relieved with Advil. Patient also complains that he is short of breath the past few weeks and has realised his abdominal has been more distended in the last week. It was hard for him to walk to kitchen from his room as he easily got breathless. He denied any fever, dysuria, constipation, dysarthria, acute joint redness or swelling. The patient is a male with a complex medical history including liver cirrhosis likely secondary to mixed alcohol use and hepatitis C, who presented with acute decompensation. He was found to have moderate to large ascites, for which a paracentesis was performed with removal of 1700 mL of serous fluid. Initial fluid analysis and cultures showed no growth. Blood cultures revealed Gram- negative bacteremia, prompting a switch from ceftriaxone to Zosyn. The patient also exhibited signs of spontaneous bacterial peritonitis, lactic acidosis (initially 3.5, improved to 3.0 post-paracentesis), transaminitis, thrombocytopenia, and anemia of chronic liver disease. Maddrey Discriminant Function score was 16.5, indicating a relatively good prognosis, and MELD score was 15, correlating with an estimated 6% three-month mortality. Management included lactulose 30 mg PO BID, spironolactone 25 mg PO daily, and Lasix 20 mg PO BID. Albumin was administered post-paracentesis. Imaging revealed cirrhotic liver, moderate to large ascites, and pleural effusions. The patient also experienced intermittent metabolic encephalopathy and hypoxic respiratory failure, likely due to ascites and effusion. Head CT showed a chronic right frontoparietal subdural hematoma and global cerebral atrophy. Ammonia levels were normal. CXR suggested pulmonary vascular congestion or viral pneumonia. Additionally, the patient had a history of NSTEMI (likely type 2 due to demand ischemia) with an EF of 30% and global hypokinesia on echocardiogram. Conservative management was continued for suspected HFrEF. Supplements including thiamine, folic acid, pyridoxine, and cyanocobalamin were maintained due to history of alcoholism. Cholelithiasis was noted on CT, with outpatient follow-up recommended. The patients condition improved, and he was hemodynamically stable at discharge. He was discharged home on Augmentin and his home medications, with instructions for healthy lifestyle modifications including diet and exercise. Follow-up with primary care, gastroenterology, and the discharge clinic was advised. Physical examination on the day of discharge: General Appearance: Alert, Oriented X3, Cooperative, Not in acute distress HEENT: Atraumatic, Mucous membranes moist/pink Respiratory: Clear to auscultation, Normal air movement, No added sounds Cardiovascular: Regular rate, Normal S1, Normal S2, No murmurs Abdominal: Active bowel sounds, Soft, no distention, no tenderness Extremities: No edema, Normal pulses, No tenderness/swelling Skin: No Significant rash, except past surgical scars Neuro: Normal speech, sensorimotor deficits none Psych/Mental Status: Mental status NL, Mood NL Nurse was there as skidder loader during examination Discussed with Dr. Martinez Operations or Procedures US PARACENTESIS, HISTORY: ASCITES PROCEDURE: Informed consent was obtained. The patient was placed in supine position. A limited localization ultrasound of the abdomen was obtained, and the skin site over the largest pocket of fluid was marked and entry site was prepped with chlorhexidine which was allowed to dry and draped in the usual sterile fashion. Time out was performed. Following administration of 1% lidocaine local anesthetic, a 5 [place] centesis needle catheter was percutaneously inserted into the peritoneal collection until fluid was aspirated. The catheter was advanced into the fluid collection and the needle removed. About 1700 cc of fluid was aspirated and specimen sent for appropriate cultures/cytology/cultures and cytology. The catheter was then removed and a sterile dressing applied. No immediate complication was identified. FINDINGS: Limited ultrasound imaging demonstrates mild ascites. Aspirated fluid was clear and serous. IMPRESSION: US-guided paracentesis with 1.7L removed. CT Abdomen and Pelvis with IV Contrast Impression: Moderate to large abdominopelvic ascites Cirrhotic liver Cholelithiasis Signed by: Cayetano Cheney Date: 01/08/2025 19:22:49 PM Chest Radiograph (1 View) Impression: No acute cardiopulmonary disease Signed by: Leda Cortez Date: 01/08/2025 19:20:20 PM Ultrasound Abdomen (Limited, 4 Quadrants) Impression: Ascites visualized in all 4 quadrants Signed by: Ryan Jones Date: 01/09/2025 07:40:[address] Head Without Contrast Impression: Chronic appearing right frontoparietal subdural hematoma, similar to previous examination No acute intracranial hemorrhage [id number] chronic microvascular ischemic changes Moderate global cerebral volume loss Signed by: Anibal Benavides Date: 01/11/2025 15:14:44 PM Ultrasound Abdomen Limited (4 Quadrants) Impression: Small volume ascites Partially visualized moderate right pleural effusion and trace left pleural effusion Signed by: Bonnie Iniguez Date: 01/11/2025 14:52:52 PM Condition at Discharge: Stable Final Diagnosis/Problems List # Acute toxic/metabolic encephalopathy, likely from ? Bacteremia vs cirrhosis # ? Acute hypoxic respiratory failure likely from effusion/ascites-improved # suspected sepsis due to Gram-positive bacteremia-repeat culture with no growth # RULED OUT Spontaneous bacterial peritonitis # Acute decompensation liver cirrhosis likely from mixed alcohol/hep C # moderate to large ascites s/p paracentesis # transaminitis # hepatitis-C infection # lactic acidosis likely from decompensation versus sepsis # Thrombocytopenia from liver cirrhosis # Anemia of chronic liver disease-monitor lab # NSTEMI likely type 2 likely due to demand ischemia # ? HFrEF, exacerbation LVEF 30% # history of alcoholism # chronic subdural hematoma-stable # Cholelithiasis Discharge Disposition: Home Discharge Instruct/Medications Diet: Consistent carbohydrate, Cardiac 2g Na,low cholest Activity: No Restrictions, As Tolerated Follow Up/Referral: PCP and GI within 1 to 2 weeks discharge clinic in 7 days Medications: per emr resume home meds Scheduled Amoxicillin & Pot Clavulanate (Augmentin Tablet), 875 MG PO BID Atorvastatin Calcium (Atorvastatin Calcium), 1 TAB PO DAILY, (Reported) Carvedilol (Carvedilol), 0.5 TAB PO BID, (Reported) Folic Dbic-Kgjkewqvky-Vshidhtc (Folbic), 1 TAB PO DAILY, (Reported) Lactulose (Lactulose), 10 GM PO BID Midodrine HCl (Midodrine HCl), 10 MG PO TID@0600,1200,1800 Nitroglycerin (Ntrostat Sublingual), 0.4 MG SL PRN, (Reported) Olanzapine (Olanzapine), 10 MG PO DAILY Spironolactone (Aldactone), 25 MG PO DAILY Miscellaneous Medications Aspirin (Aspirin Low Dose), 81 MG PO, (Reported) Chlordiazepoxide HCl (Chlordiazepoxide Hydrochl), 25 MG PO, (Reported) Ferrous Sulfate (Ferrous Sulfate), 325 MG PO, (Reported) Furosemide (Furosemide), 20 MG PO, (Reported) Midodrine HCl (Midodrine HCl), 5 MG GT, (Reported) Ranolazine (Ranolazine ER), 500 MG PO, (Reported) Thiamine Hcl (Thiamine Hcl), 50 MG IJ, (Reported) Discharge Statement: "Patient was advised to return to the ER or call 911 if any headaches, dizziness, shortness of breath, chest pain, abdominal pain, bleeding, fevers, or worsening of medical condition. Patient was counseled about treatment plan, medications, possible side effects, patientverbalized understanding. All questions were answered to the best of my ability. This discharge took greater then 30 minutes in planning, reviewing documentation, counseling the patient, and discussing with other team members." Addendum Addendum Addendum I was physically present for the stover portions of the service provided to patient by THE RESIDENT. I have reviewed the documentation, discussed the case with resident and agree with the resident's documentation except as noted. Also the patient's clinical case was discussed with the patient's nurse. This medical document was created using an electronic medical record system with computerized dictation system. Although this document has been carefully reviewed, there might still be some phonetic and typographical errors. These areas are purely typographical due to imperfections of the software programs, and do not reflect any compromise in the patient's medical care. Late signature. Date of Service: Jan 12, 2025 Billing Provider: STEVE MARTINEZ MD Common Visit Codes: [id number] DISCH DAY >30min DANIEL MIRANDA RESIDENT Jan 12, 2025 14:51 STEVE MARTINEZ MD Jan 13, 2025 12:16
== END 2025-01-12 13:45 | disposition home or self-care (01) | DRG 720 ==
LOC: EDBD 17:01 → ER 17:01 → EDSEX 17:01 → EDUNIT# 17:01 → OVERFLOW 23:01 → TELE-WESTW 01-09 07:04 → CENTRAL 01-11 13:48 → TELE-CENTR 01-11 19:39
PROVIDERS: ADMIT Internal Medicine; ATTEND Emergency Medicine
PROC: 0W9G3ZZ Drainage of Peritoneal Cavity, Percutaneous Approach (ICD-10-PCS; principal; 2025-01-09)
DX: A41.59 Other Gram-negative sepsis (principal); J96.01 Acute respiratory failure with hypoxia; I21.A1 Myocardial infarction type 2; I50.23 Acute on chronic systolic (congestive) heart failure; G92.8 Other toxic encephalopathy; D69.6 Thrombocytopenia, unspecified; E87.20 Acidosis, unspecified; D63.8 Anemia in other chronic diseases classified elsewhere; K70.31 Alcoholic cirrhosis of liver with ascites; B19.20 Unspecified viral hepatitis C without hepatic coma; K80.20 Calculus of gallbladder without cholecystitis without obstruction; B96.89 Other specified bacterial agents as the cause of diseases classified elsewhere; I25.10 Atherosclerotic heart disease of native coronary artery without angina pectoris; Z82.49 Family history of ischemic heart disease and other diseases of the circulatory system; Z79.899 Other long term (current) drug therapy
CPT/HCPCS: 36415; 49083; 70450; 71045; 74177; 76705; 76942; 80048; 80053; 80307; 80320; 81001; 82140; 82247; 83036; 83605; 83735; 83880; 83986; 84075; 84443; 84450; 84460; 84484; 85025; 85610; 85730; 87040; 87081; 87205; 89051; 93005; 96365; 99291; G0378; J2405; J2543; J7060; P9047

== ENCOUNTER 2025-01-18 10:42 | Inpatient (IN) | payer OTHER ==
[~2025-01-18] VITALS: Ht 172.7 cm; Wt 68.8 kg
[~2025-01-18 10:42] MED LIST changes: +AUG875T PO; +LACT10SO3 PO; +SPIR25TA PO
--- NOTE | 2025-01-18 11:06 | ED.PDOC ---
GI ASSESSMENT HPI Comments A 64 year-old male, with a HX of HTN and DM, presents to the ED via wheelchair with a chief complaint of epigastric abdominal pain with associated N/D for X4 days. Patient came to the ED Chief Complaint: Nausea/Vomiting Primary Care Provider: NONE Allergies: Coded Allergies: NO KNOWN ALLERGIES (Unverified , 10/19/24) Home Meds Active Scripts Spironolactone (Aldactone) 25 Mg Tab, 25 MG PO DAILY for 30 Days, #30 TAB Prov:DIOGENES MIRANDASbMOISES RESIDENT 01/12/25 Lactulose (Lactulose) 10 Gm/15 Ml [place], 10 GM PO BID for 30 Days, #600 ML Prov[facility] 01/12/25 Amoxicillin & Pot Clavulanate (AUGMENTIN TABLET) 875 Mg Tb, 875 MG PO BID for 7 Days, #14 TAB Prov:DANIEL MIRANDA RESIDENT 01/12/25 Olanzapine (OLANZAPINE) 5 Mg Tab, 10 MG PO DAILY for 30 Days, #3 TAB 3 Refills Prov:JULIETTE HUTTON DO 10/29/24 Midodrine HCl (Midodrine HCl) 10 Mg Tab, 10 MG PO TID@0600,1200,1800 for 30 Days, #90 TAB 3 Refills Prov:JULIETTE HUTTON DO 10/29/24 Reported Medications Nitroglycerin (NTROSTAT SUBLINGUAL) 0.4 Mg Sl, 0.4 MG SL PRN, TAB *MAY REPEAT EVERY 5 MINUTES X 3 TOTAL IF NO RELIEF, INITIATE ANALGESIC THERAPY. NOTIFY PHYSICIAN *Do not crush. 10/17/24 Midodrine HCl (Midodrine HCl) 10 Mg Tab, 5 MG GT, TAB 10/17/24 Chlordiazepoxide HCl (Chlordiazepoxide Hydrochl) 25 Mg Cap, 25 MG PO, CAP 10/17/24 Thiamine Hcl (THIAMINE HCL) 100 Mg/Ml Inj, 50 MG IJ, INJ 10/17/24 Ranolazine (Ranolazine ER) 500 Mg Tab, 500 MG PO, TAB 10/17/24 Furosemide (Furosemide) 20 Mg Tab, 20 MG PO, TAB 10/17/24 Folic Axjs-Bghvmcwmrb-Wglkuqle (Folbic) Tab, 1 TAB PO DAILY, #90 TAB 1 Refill 10/17/24 Ferrous Sulfate (FERROUS SULFATE) 325 Mg Tb, 325 MG PO, TAB 10/17/24 Carvedilol (Carvedilol) 3.125 Mg Tab, 0.5 TAB PO BID, #60 TAB 3 Refills 10/17/24 Atorvastatin Calcium (ATORVASTATIN CALCIUM) 40 Mg Tab, 1 TAB PO DAILY, #30 TAB 5 Refills 10/17/24 Aspirin (Aspirin Low Dose) 81 Mg Chw, 81 MG PO, TAB.CHEW 10/17/24 Past Medical History PAST MEDICAL HISTORY: CAD, Liver Surgical History: Denies all surgeries Family History Family History: Unknown Social History Smoker: Non-Smoker Alcohol: Heavy Drugs: Denies Drug Use Lives In: Home SEPSIS Sepsis Screen Physician Orders Psychiatric Assistant (01/18/25 ) Complete Blood Count (01/18/25 11:02) Comprehensive Metabolic Panel (01/18/25 11:02) Troponin-I Hs (01/18/25 11:02) Urinalysis (01/18/25 11:02) Lactic Acid W/ Reflex Order (01/18/25 11:02) Electrocardigram (01/18/25 11:02) Ct Ab Pel Wo Con-No Oral Or Iv (01/18/25 11:02) Troponin-I Hs (01/18/25 12:02) Troponin-I Hs (01/18/25 14:02) I personally scribed for AMRIT MARADIAGA DO ([email or web address]) on 01/18/25 at 11:06. Electronically submitted by Sharon Pandya ([employer]). I personally scribed for AMRIT MARADIAGA DO ([email or web address]) on 01/18/25 at 11:07. Electronically submitted by Sharon Pandya ([employer]). AMRIT MARADIAGA DO Jan 18, 2025 11:06
--- NOTE | 2025-01-18 11:35 | ED.PDOC ---
GI ASSESSMENT HPI Comments 64 y/o M, with PMHx of CAD, HTN, DM, and liver cirrhosis presents to the emergency department for chief complaint of epigastric abdominal pain with associated N/D for X4 days. Patient came to the ED on 01/08/25 for abdominal pain and was discharged with Intractable abdominal pain and Ascites. Patient Patient denies nausea, vomiting, diarrhea, fever, or chills. No other symptoms or modifying factors present at this time. Patient was recently admitted and discharged with the following diagnosis: Final Diagnosis/Problems List # Acute toxic/metabolic encephalopathy, likely from ? Bacteremia vs cirrhosis # ? Acute hypoxic respiratory failure likely from effusion/ascites-improved # suspected sepsis due to Gram-positive bacteremia-repeat culture with no growth # RULED OUT Spontaneous bacterial peritonitis # Acute decompensation liver cirrhosis likely from mixed alcohol/hep C # moderate to large ascites s/p paracentesis # transaminitis # hepatitis-C infection # lactic acidosis likely from decompensation versus sepsis # Thrombocytopenia from liver cirrhosis # Anemia of chronic liver disease-monitor lab # NSTEMI likely type 2 likely due to demand ischemia # ? HFrEF, exacerbation LVEF 30% # history of alcoholism # chronic subdural hematoma-stable # Cholelithiasis Past Medical history: CAD, HTN, DM, and liver cirrhosis Past Surgical history: DENIES ANY Medications: Social History: Denies smoking, ETOH, and drug use. Allergies: NKA HPI: Poor Historian. REVIEW OF SYSTEMS: CONSTITUTIONAL: Denies acute: fever, diaphoresis, chills, HEAD: Denies acute: headache, photophobia Eyes: Denies acute: Double vision, vision loss, eye pain, eye discharge. EARS: Denies acute: tinnitus, hearing loss, ear discharge, ear pain, THROAT: Denies acute: sore throat, swelling, difficulty swallowing , pain with swallowing, change in voice. NECK: Denies acute: neck pain, neck swelling, stiff neck. HEART: Denies acute : chest pain, palpitations, LUNGS: Denies acute: SOB, wheezing, cough, hemoptysis ABDOMEN: Denies acute: abdominal pain, diarrhea, melena , hematemesis, hematochezia SKIN: Denies acute: rash, redness, lesions, itchiness. EXTREMITIES: Denies acute: calf pain, numbness, tingling, weakness, denies pain in extremity. Denies acute: Low back pain. Neuro: Denies acute: focal neurological deficit, motor or sensory focal neurological deficit, tremors, seizure like activity, confusion, dizziness, change in mental status, loss of bowel or bladder function, cauda equina like symptoms. : Denies acute: dysuria, hematuria, flank pain, increase in urinary frequency. PSYCH: Denies acute: hallucination, suicidal ideation, homicidal ideation. PHYSICAL EXAM: General: ----mild----acute distress, awake and alert. Head: normocephalic, atraumatic. Neck: supple, trachea is midline, no swelling. Throat: Normal phonation. Dry oral mucosa Eyes:, no erythema, no purulent discharge, no proptosis, SLIGHT icterus. Heart: regular rate, regular rhythm, no significant murmur appreciated. Lungs: no apparent respiratory distress, Able to speak in full sentences. No wheezing, no rhonchi, no crackles. No stridors Clear to auscultation bilaterally. Abdomen: non tender to palpation, non distended, soft, no guarding, no rebound, + bowel sounds. Neuro: Awake, Alert, oriented to name, self, situation, follows commands GCS=15. Speech is normal. Skin: no petechia, no purpura, no cyanosis, non-pale, SLIGHT jaundice. Lower extremities: --no - Pitting edema no deformity, no focal swelling, no calf TTP. Makes eye contact. moves all four extremities. Face: no apparent facial droop. ED COURSE: DISCLAIMER: This medical document was created using an electronic medical record system with voice recognition software and computerized dictation system. Although this document has been carefully reviewed, there might still be some phonetic and typographical errors. Occasional wrong-word or "sound-alike" substitutions may have occurred due to the inherent limitations of voice recognition software. These areas are purely typographical due to imperfections of the software programs and do not reflect any compromise in the patient's medical care. Please read the chart carefully and recognize, using context, where these substitutions have occurred. Chief Complaint: Nausea/Vomiting Time Seen by MD: 10:51 Primary Care Provider: NONE Reviewed Notes: Medications, Allergies Allergies: Coded Allergies: NO KNOWN ALLERGIES (Unverified , 10/19/24) Home Meds Active Scripts Spironolactone (Aldactone) 25 Mg Tab, 25 MG PO DAILY for 30 Days, #30 TAB Prov:DANIEL MIRANDA RESIDENT 01/12/25 Lactulose (Lactulose) 10 Gm/15 Ml [place], 10 GM PO BID for 30 Days, #600 ML Prov:DANIEL MIRANDA 01/12/25 Amoxicillin & Pot Clavulanate (AUGMENTIN TABLET) 875 Mg Tb, 875 MG PO BID for 7 Days, #14 TAB Prov:DANIEL MIRANDA RESIDENT 01/12/25 Olanzapine (OLANZAPINE) 5 Mg Tab, 10 MG PO DAILY for 30 Days, #3 TAB 3 Refills Prov:HUTTONJULIETTE Laureano DO 10/29/24 Midodrine HCl (Midodrine HCl) 10 Mg Tab, 10 MG PO TID@0600,1200,1800 for 30 Days, #90 TAB 3 Refills Prov:JULIETTE HUTTON DO 10/29/24 Reported Medications Nitroglycerin (NTROSTAT SUBLINGUAL) 0.4 Mg Sl, 0.4 MG SL PRN, TAB *MAY REPEAT EVERY 5 MINUTES X 3 TOTAL IF NO RELIEF, INITIATE ANALGESIC THERAPY. NOTIFY PHYSICIAN *Do not crush. 10/17/24 Midodrine HCl (Midodrine HCl) 10 Mg Tab, 5 MG GT, TAB 10/17/24 Chlordiazepoxide HCl (Chlordiazepoxide Hydrochl) 25 Mg Cap, 25 MG PO, CAP 10/17/24 Thiamine Hcl (THIAMINE HCL) 100 Mg/Ml Inj, 50 MG IJ, INJ 10/17/24 Ranolazine (Ranolazine ER) 500 Mg Tab, 500 MG PO, TAB 10/17/24 Furosemide (Furosemide) 20 Mg Tab, 20 MG PO, TAB 10/17/24 Folic Inec-Kfqlrldssx-Bmrugcad (Folbic) Tab, 1 TAB PO DAILY, #90 TAB 1 Refill 10/17/24 Ferrous Sulfate (FERROUS SULFATE) 325 Mg Tb, 325 MG PO, TAB 10/17/24 Carvedilol (Carvedilol) 3.125 Mg Tab, 0.5 TAB PO BID, #60 TAB 3 Refills 10/17/24 Atorvastatin Calcium (ATORVASTATIN CALCIUM) 40 Mg Tab, 1 TAB PO DAILY, #30 TAB 5 Refills 10/17/24 Aspirin (Aspirin Low Dose) 81 Mg Chw, 81 MG PO, TAB.CHEW 10/17/24 Information Source: Patient Mode of Arrival: Ambulatory Duration: Since onset Prehospital treatment: None Severity: Moderate Recent: None Pain Location: Epigastric Associated sign and symptoms: Nausea, Diarrhea, Abdominal Pain Past Medical History PAST MEDICAL HISTORY: CAD, Liver Surgical History: Denies all surgeries Family History Family History: Unknown Social History Smoker: Non-Smoker Alcohol: Heavy Drugs: Denies Drug Use Lives In: Home Was a procedure done? Was a procedure done?: No GI differential Dx Differential Diagnosis: Constipation, Gastritis/PUD, Gastroenteritis, Dehydration, Food Poisoning, Bacterial, Parasitic, Viral, Kidney Stone, Other (As far as dyspnea: DDx include ACS, unstable angina, anxiety, PE, pneumothroax, neoplasm, cardiac ischemia, COPD, asthma, CHF, pleural effusion, tobacco abuse, pneumonia, hypoxia, hypercapnia, anemia., infection/sepsis., pulmonary edema. Asthma, Cardiac tamponade, infection.) X-Ray, Labs, Meds, VS Vital Signs Date Time Temp Pulse Resp B/P (MAP) Pulse Ox O2 Delivery O2 Flow Rate FiO2 01/18/25 16:00 97.7 90 18 98/36 (56) 100 97.7 01/18/25 15:49 98 Room Air* 0 21 01/18/25 15:42 86 16 98 Room Air* 0 21 01/18/25 15:00 84 18 97/45 (62) 100 01/18/25 14:18 86 01/18/25 14:00 88 18 115/52 (73) 100 01/18/25 13:58 115/52 01/18/25 13:00 97.6 84 18 103/55 (71) 100 97.6 01/18/25 12:59 64 01/18/25 12:52 87 01/18/25 11:21 97.6 83 18 106/60 (75) 96 97.6 Lab Test 01/18/25 15:36 01/18/25 13:31 01/18/25 11:26 Range/Units Troponin I High Sensitivity 4692 *H 5049 *H 5334 *H </=54 ng/L Lactic Acid Level 2.2 *H 2.6 *H 0.4-2.0 mmol/L White Blood Count 8.3 4.4-10.8 10^3/uL Red Blood Count 2.80 L 4.5-5.90 10^6/uL Hemoglobin 8.8 L 13.5-17.5 g/dL Hematocrit 25.9 L 41.0-53.0 % Mean Corpuscular Volume 92.7 80.0-100.0 fL Mean Corpuscular Hemoglobin 31.4 28.0-32.0 pg Mean Corpuscular Hemoglobin Concent 33.9 32.0-36.0 g/dL Red Cell Distribution Width 25.3 H 11.8-14.3 % Platelet Count 143 140-450 10^3/uL Mean Platelet Volume 7.9 6.9-10.8 fL Neutrophils (%) (Auto) 82.8 H 37.0-80.0 % Lymphocytes (%) (Auto) 10.5 10.0-50.0 % Monocytes (%) (Auto) 5.1 0.0-12.0 % Eosinophils (%) (Auto) 0.8 0.0-7.0 % Basophils (%) (Auto) 0.8 0.0-2.0 % Neutrophils # (Auto) 6.9 1.6-8.6 10 ^3/uL Lymphocytes # (Auto) 0.9 0.4-5.4 10 ^3/uL Monocytes # (Auto) 0.4 0-1.3 10 ^3/uL Eosinophils # (Auto) 0.1 0-0.8 10 ^3/uL Basophils # (Auto) 0.1 0-0.2 10 ^3/uL Nucleated Red Blood Cells 0.2 % Platelet Estimate Adequate Poikilocytosis (manual) Slight Anisocytosis (manual) Moderate Target Cells Few Schistocytes Few Sodium Level 132 #L 136-145 mmol/L Potassium Level 4.7 3.5-5.1 mmol/L Chloride Level 99 98-107 mmol/L Carbon Dioxide Level 16 L 20-31 mmol/L Anion Gap 17 H 5-15 Blood Urea Nitrogen 80 *H 9-23 mg/dL Creatinine 3.87 #H 0.700-1.30 mg/dL Glomerular Filtration Rate Calc 17 >90 mL/min BUN/Creatinine Ratio 20.7 H 10.0-20.0 Serum Glucose 114 H 74-106 mg/dL Calcium Level 9.4 8.7-10.4 mg/dL Total Bilirubin 8.1 H 0.2-1.0 mg/dL Aspartate Amino Transferase (AST) 242 H 13-40 U/L Alanine Aminotransferase (ALT) 118 H 7-40 U/L Alkaline Phosphatase 118 H 46-116 U/L B-Type Natriuretic Peptide > 5000.00 0-100 pg/mL Total Protein 6.9 5.7-8.2 g/dL Albumin 3.1 L 3.2-4.8 g/dL [place] [address] Ph: [phone] DIAGNOSTIC IMAGING Diagnostic Imaging Report : [id number] Signed PATIENT: CARRIE BELTRANT: [id number] UNIT: [id number] : 1960 LOC: ER ROOM / BED: / AGE / SEX: 64 / M ADM STATUS: REG ER SERVICE 1102 ORDERING PHYSICIAN: AMRIT MARADIAGA DO PROCEDURE(s): ABPL - CT AB PEL WO CON-NO ORAL OR IV REASON: n/v ORDER NUMBER(s): [id number], ACCESSION NUMBER(s): [id number] CT CT AB PEL WO CON-NO ORAL OR IV INDICATION: n/v EXAM DATE: 01/18/2025 11:45 AM COMPARISON: CT CT AB PEL WO CON-NO ORAL OR IV on DOS: 10/16/24 RADIATION DOSE: CTDIvol: 9.92 mGy, DLP: 491.09 mGy*cm PROCEDURE: Helical CT images were obtained of the abdomen and pelvis without IV contrast Sagittal and coronal reconstructions are provided. ORAL CONTRAST: None. ADDITIONAL IMAGES / REFORMATS: None All CT scans at this medical facility are performed using dose modulation techniques as appropriate to a performed exam including the following: Automated exposure control was utilized; adjustment of the MA and/or KV according to patient size; and use of iterative reconstruction technique. FINDINGS: LUNG BASE: Mild bilateral pleural effusion with bibasilar atelectasis. LIVER: Liver cirrhosis. GALLBLADDER AND BILIARY TREE: Gallstone in the gallbladder. No intra- or extrahepatic biliary ductal dilation. PANCREAS: Normal. SPLEEN: Normal. BOWEL: Normal. Normal appendix. ADRENALS: Normal. KIDNEYS AND URETER: Normal. BLADDER: Normal. REPRODUCTIVE ORGANS: Normal. LYMPH NODES:No lymphadenopathy. PERITONEUM: Small amount of ascites. VESSELS: Scattered atherosclerotic calcifications are noted. RETROPERITONEUM: Normal. ABDOMINAL WALL: Mildly edematous. BONES: Scattered osseous degenerative changes are noted. Mild T12 compression deformity. IMPRESSION: No acute intraabdominal abnormality. Cirrhosis. Cholelithiasis. Trace ascites. [place] [address] Ph: [phone] DIAGNOSTIC IMAGING Diagnostic Imaging Report : [id number] Signed PATIENT: PUSHPA BELTRANACCT: [id number] UNIT: [id number] : 1960 LOC: ER ROOM / BED: / AGE / SEX: 64 / M ADM STATUS: REG ER SERVICE 1225 ORDERING PHYSICIAN: AMRIT MARADIAGA DO PROCEDURE(s): CXRP - CHEST PORTABLE REASON: WEAK ORDER NUMBER(s): [id number], ACCESSION NUMBER(s): [id number] XY CHEST PORTABLE, HISTORY: WEAK COMPARISON: XY CHEST PORTABLE on DOS: 01/11/25, XY CHEST PORTABLE on DOS: 01/08/25, XY CHEST PORTABLE on DOS: 10/18/24 XY CHEST PORTABLE on DOS: 01/11/25, XY CHEST PORTABLE on DOS: 01/08/25, XY CHEST PORTABLE on DOS: 10/18/24 TECHNICAL DATA: 1 view of the chest was obtained. FINDINGS: Lines and tubes: None Cardiomediastinal silhouette: Prominent Pulmonary vasculature: Prominent Lung expansion: low Lung airspace: Patchy bibasilar opacities. Lung interstitium: Prominent Pleura: Trace bilateral effusion. Pneumothorax: no Bones: Unremarkable Other: no IMPRESSION: Pulmonary vascular congestion with trace bilateral effusions. Time of 1ST Reevaluation: 11:34 Reevaluation 1ST: Unchanged Time of 2ND Reevaluation: 13:03 (When asked again collado the patient here in the ED, patient changed his story completely. They said he is here for shortness of breath for the last few days worse when he lays flat. Denies nausea or vomiting. He has been having decreased p.o. intake because he feels that his stomach is full.) Patient Education/Counseling: Diagnosis, Treatment Family Education/Counseling: No Family Present Comments MDM: patient presented with the above HPI.---dyspnea---workup was initiated. patient was found with the above mentioned diagnosis. the following medications were ordered: please refer to order lists of meds and tests obtained by myself Dr. Maradiaga. Patient ED course and VS have been stabilized. Patient has been reassessed in the ED and remained in a stable condition. Pertinent incidental findings were discussed with the patient and/or family. Patient/family voices understanding and is agreeable with plan. Patient has been observed in the ED adequate length of time to insure improvement/stability. Escalation of care considered: Consideration of escalation to observation or admission Patient was hypotensive in the setting of liver cirrhosis, patient was given al bumin. Patient was suspected to be volume overloaded with elevated BNP and chest x-ray showing pulmonary vascular congestion. Lasix was ordered. Cardiology was consulted as soon as we got the 1st elevated troponin levels . Given the patient's history of liver cirrhosis, patient is not a good candidate for anticoagulation. Patient was given fluid hydration as well. Empiric ant ibiotics initiated Rocephin. Patient was ADMITTED to the medicine team for further evaluation and treatment of their presentation. All the reports of any imaging studies that were ordered by myself were reviewed by myself. SEPSIS Sepsis Screen Date sepsis recognized/suspect: Jan 18, 2025 Time Sepsis recognized/suspect: 1050 Recent Procedure: No On Antibiotic Therapy: No Respiratory Rate >20: No Heart Rate >90: No Temp<36 C (96.8 F) or >38.3 C: No SBP <90 or MAP <65 mmHG: No New Acute Mental Status Change: No Is the patient on CPAP, BIPAP,: No Physician Orders Risk Management Specialist (01/18/25 ) Ct Ab Pel Wo Con-No Oral Or Iv (01/18/25 11:02) Chest Portable (01/18/25 12:25) * Cardiology Consult (01/18/25 12:44) Vital Signs Date Time Temp Pulse Resp B/P (MAP) Pulse Ox O2 Delivery O2 Flow Rate FiO2 01/18/25 16:00 97.7 90 18 98/36 (56) 100 97.7 01/18/25 15:49 98 Room Air* 0 21 01/18/25 15:42 86 16 98 Room Air* 0 21 01/18/25 15:00 84 18 97/45 (62) 100 01/18/25 14:18 86 01/18/25 14:00 88 18 115/52 (73) 100 01/18/25 13:58 115/52 01/18/25 13:00 97.6 84 18 103/55 (71) 100 97.6 01/18/25 12:59 64 01/18/25 12:52 87 01/18/25 11:21 97.6 83 18 106/60 (75) 96 97.6 Laboratory Tests Test 01/18/25 11:26 01/18/25 13:31 Lactic Acid Level 2.6 mmol/L (0.4-2.0) *H 2.2 mmol/L (0.4-2.0) *H White Blood Count 8.3 10^3/uL (4.4-10.8) Departure 1 Departure Time of Disposition: 12:13 Impression: Primary Impression: NSTEMI (non-ST elevated myocardial infarction) Additional Impressions: Dyspnea Hypotension Elevated lactic acid level Anemia Acute renal failure Thrombocytopenia Elevated brain natriuretic peptide (BNP) level Disposition: ADMITTED INPATIENT Admit to: Tele Condition: Guarded Discharged With: Self Critical Care Note Critical Care Time?: Yes (1 hr-critical care time only) I personally scribed for AMRIT MARADIAGA DO ([email or web address]) on 01/18/25 at 11:35. Electronically submitted by Sharon Pandya ([employer]). I personally scribed for AMRIT MARADIAGA DO ([email or web address]) on 01/18/25 at 11:36. Electronically submitted by Sharon Pandya ([employer]). I personally scribed for AMRIT MARADIAGA DO ([email or web address]) on 01/18/25 at 12:57. Electronically submitted by Sharon Pandya ([employer]). I personally scribed for AMRIT MARADIAGA DO ([email or web address]) on 01/18/25 at 12:57. Electronically submitted by Sharon Pandya ([employer]). AMRIT MARADIAGA DO Jan 18, 2025 11:35
[2025-01-18 12:02] LABS: Hematocrit 25.9 % (41.0-53.0); Hemoglobin 8.8 g/dL (13.5-17.5); Mean Corpuscular Hemoglobin 31.4 pg (28.0-32.0); Mean Corpuscular Volume 92.7 fL (80.0-100.0); Nucleated Red Blood Cells % 0.2 %
[2025-01-18 12:10] LABS: Alanine Aminotransferase 118 U/L (7-40); Alkaline Phosphatase 118 U/L (46-116); Anion Gap 17 (5-15); BUN/Creatinine Ratio 20.7 (10.0-20.0); Calcium 9.4 mg/dL (8.7-10.4); Carbon Dioxide 16 mmol/L (20-31); Chloride 99 mmol/L (98-107); Glucose 114 mg/dL (74-106); Potassium 4.7 mmol/L (3.5-5.1); Sodium 132 mmol/L (136-145); Total Protein 6.9 g/dL (5.7-8.2)
[2025-01-18 12:11] LABS: Albumin 3.1 g/dL (3.2-4.8); Bilirubin, Total 8.1 mg/dL (0.2-1.0); Blood Urea Nitrogen 80 mg/dL (9-23)
[2025-01-18 12:15] LABS: Lactic Acid w/Reflex 2.6 mmol/L (0.4-2.0)
[2025-01-18 12:22] LABS: Anisocytosis Moderate
--- NOTE | 2025-01-18 12:25 | DVH ---
CT CT AB PEL WO CON-NO ORAL OR IV INDICATION: n/v EXAM DATE: 01/18/2025 11:45 AM COMPARISON: CT CT AB PEL WO CON-NO ORAL OR IV on DOS: 10/16/24 RADIATION DOSE: CTDIvol: 9.92 mGy, DLP: 491.09 mGy*cm PROCEDURE: Helical CT images were obtained of the abdomen and pelvis without IV contrast Sagittal and coronal reconstructions are provided. ORAL CONTRAST: None. ADDITIONAL IMAGES / REFORMATS: None All C T scans at this medical facility are performed using dose modulation techniques as appropriate to a p erformed exam including the following: Automated exposure control was utilized; adjustment of the MA and/or KV according to patient size; and use of iterative reconstruction technique. FINDINGS: LUNG BASE: Mild bilateral pleural effusion with bibasilar atelectasis. LIVER: Liver cirrhosis. GALLBLADDER AND BILIARY TREE: Gallstone in the gallbladder. No intra- or extrahepatic biliary ductal dilation. PANCREAS: Normal. SPLEEN: Normal. BOWEL: Normal. Normal appendix. ADRENALS: Normal. KIDNEYS AND URETER: Normal. BLADDER: Normal. REPRODUCTIVE ORGANS: Normal. LYMPH NODES:No lymphadenopathy. PERITONEUM: Small amount of ascites. VESSELS: Scattered atherosclerotic calcifications are noted. RETROPERITONEUM: Normal. ABDOMINAL WALL: Mildly edematous. BONES: Scattered osseous degenerative changes are noted. Mild T12 compression deformity. IMPRESSION: No acute intraabdominal abnormality. Cirrhosis. Cholelithiasis. Trace ascites.
--- NOTE | 2025-01-18 12:55 | DVH ---
XY CHEST PORTABLE, HISTORY: WEAK COMPARISON: XY CHEST PORTABLE on DOS: 01/11/25, XY CHEST PORTABLE on DOS: 01/08/25, XY CHEST PORTABLE o n DOS: 10/18/24 XY CHEST PORTABLE on DOS: 01/11/25, XY CHEST PORTABLE on DOS: 01/08/25, XY CHEST PORTABLE on DOS: TECHNICAL DATA: 1 view of the chest was obtained. FINDINGS: Lines and tubes: None Cardiomediastinal silhouette: Prominent Pulmonary vasculature: Prominent Lung expansion: low Lung airspace: Patchy bibasilar opacities. Lung interstitium: Prominent Pleura: Trace bilateral effusion. Pneumothorax: no Bones: Unremarkable Other: no IMPRESSION: Pulmonary vascular congestion with trace bilateral effusions.
[2025-01-18] MEDS: cefTRIAXone 1GM/50ML D5W 50 ML IV ONE (13:16)
[2025-01-18] MEDS: SODIUM CHLORIDE 0.9% 1,000 ML IV ONE (13:16)
[2025-01-18] MEDS: ALBUMIN 25% 100 ML IV ONE (13:24)
[2025-01-18] MEDS: FUROSEMIDE 40 MG/4 ML VIAL IV ONE (13:58)
--- NOTE | 2025-01-18 14:21 | ECG ---
[facility] Test Date: 2025-01-18 Test Time: 12:52:52 Pat Name: PUSHPA BELTRAN Department: ED Room: Gender: M Rehab Consultant: GARCIA : 1960 Requested By: AMRIT MARADIAGA Order Number: [id number] Reading MD: Measurements Intervals [place] Rate: 87 P: 61 ND: 176 QRS: 43 QRSD: 107 T: 198 QT: 383 QTc: 461 Interpretive Statements Sinus rhythm Atrial premature complex Probable anterior infarct, age indeterminate Repol abnrm, severe global ischemia (LM/MVD) Please click the below link to view image of tracing.
[2025-01-18 15:42] VITALS: PULSE 86; RESP 16; O2SAT 98
[2025-01-18] MEDS ORDERED: MORPHINE SULFATE INJ 2 MG/ml SYRG IV PRN ×2 (17:00)
[2025-01-18] MEDS ORDERED: ONDANSETRON HCL 4 MG/2 ML VIAL IV PRN (17:00)
[2025-01-18] MEDS ORDERED: SPIRONOLACTONE 25 MG TAB PO SCH (17:00)
[2025-01-18] MEDS ORDERED: PATIENTS OWN MEDICATION (Atorvastatin Calcium 1 TAB) PO SCH (17:00)
[2025-01-18] MEDS ORDERED: NITROGLYCERIN 0.4 MG SL TAB SL PRN (17:00)
[2025-01-18] MEDS ORDERED: DOCUSATE SOD 100 MG CAP PO PRN (17:00)
[2025-01-18 17:46] LABS: INR 1.96 (0.9-1.15); Partial Thromboplastin Time 35.9 SEC (24.5-34.5); Prothrombin Time 19.4 sec (9.3-11.8)
[2025-01-18 18:00] LABS: Magnesium 3.0 mg/dL (1.6-2.6)
[2025-01-18 18:12] LABS: Lipase 92 U/L (12-53)
[2025-01-18 18:30] VITALS: BP 100/48; PULSE 86; RESP 20; TEMP 97.2; O2SAT 100
[2025-01-18 18:31] VITALS: PULSE 82; RESP 18; O2SAT 98
--- NOTE | 2025-01-18 18:43 | DVH ---
ULTRASOUND ABDOMEN limited, 4 QUADRANTS INDICATION: assess ascites Evaluate for ascites. TECHNIQUE: The four quadrants of the abdomen were scanned in renteria-scale to assess for the presence of ascites. N o solid organ assessment was performed. FINDINGS/IMPRESSIONS: Trace fluid noted in the abdomen largest collection is in the left lower quadrant. Fluid seen in the chest bilaterally right greater than left. Volume of liquid not calculated.
--- NOTE | 2025-01-18 19:28 | ECG ---
[facility] Test Date: 2025-01-18 Test Time: 14:18:21 Pat Name: PUSHPA BELTRAN Department: ED Room: 0297T A Gender: M Home Therapy Teacher: BRAXTON : 1960 Requested By: CAMERON PERAZA Order Number: [id number] Reading MD: Measurements Intervals [place] Rate: 86 P: 50 KS: 127 QRS: 35 QRSD: 102 T: 181 QT: 385 QTc: 461 Interpretive Statements Sinus rhythm Probable anterior infarct, age indeterminate Repol abnrm, severe global ischemia (LM/MVD) Please click the below link to view image of tracing.
--- NOTE | 2025-01-18 19:34 | DVHHPRES ---
History of Present Illness Resident Creating Document: CAMERON PERAZA RESIDENT History of Present Illness 64-year-old male with past history of CAD, hypertension, hepatitis-C, HFrEF 30%, liver cirrhosis presented to the emergency department today morning due to acute epigastric abdominal pain. Patient reports that he had abdominal pain since yesterday evening that is pulsating and throbbing in nature, constant with 10/ 10 intensity, non-radiating, increased on movement to the left side, with no relieving factors. It is associated with shortness of breath, nausea and decreased appetite. He denies any chest pain, fever, chills, vomiting or diarrhea. Patient and was recently discharged from this facility with lactulose and other medication but he has not been compliant with it. Past Medical History: CAD, HFrEF EF 30%, cirrhosis of liver, hepatitis-C infection, cholelithiasis, chronic subdural hematoma Past Surgical History: None Family History: father has hypertension Past Social History: patient lives with his daughter. Says he has stopped alcohol for 2 month but before he used to drink beers 3 cans per day starting from his 20s up till 2 months ago. He denies any drug abuse or smoking. Home medication: can not recall the names, noncompliant Allergies: None Review of Systems Review of Systems ROS: Patient was seen and examined by me at the bedside. Overnight events were reviewed. Patient now complains that he still has epigastric pain which is 8/ 10 intensity and is associated with shortness of breath. He reports he has not passed any stool in the last 3 days and is still nauseated and unable to even drink water. Rest of the ROS is negative. Allergies: Coded Allergies: NO KNOWN ALLERGIES (Unverified , 10/19/24) Medications Current Medications Medications Dose Ordered Sig/Luis Route Start Time Stop Time Status Last Admin Dose Admin Sodium Chloride 10 ml Q8HR IV 01/18/25 22:00 UNV Ondansetron HCl 4 mg Q4HP PRN IV 01/18/25 17:00 UNV Docusate Sodium 100 mg BIDPRN PRN PO 01/18/25 17:00 UNV Morphine Sulfate 2 mg Q4HPRN PRN IV 01/18/25 17:00 UNV Nitroglycerin 0.4 mg Q5MINP PRN SL 01/18/25 17:00 UNV Morphine Sulfate 2 mg Q30M PRN IV 01/18/25 17:00 UNV Midodrine 10 mg TID@0600,1200,1800 PO 01/18/25 17:00 UNV Spironolactone 25 mg DAILY PO 01/18/25 17:00 UNV Thiamine HCl 50 mg DAILY IV 01/18/25 17:00 UNV Patient Own Medication 1 tab DAILY PO 01/18/25 17:00 UNV Patient Own Medication 10 gm BID PO 01/18/25 17:00 UNV Exam Vital Signs Vital Signs Date Time Temp Pulse Resp B/P (MAP) Pulse Ox O2 Delivery O2 Flow Rate FiO2 01/18/25 18:00 85 18 93/50 (64) 98 01/18/25 16:00 97.7 97.7 01/18/25 15:49 Room Air* 0 21 Exam Pt is lying on bed General Appearance: Alert, Oriented X3, Cooperative, in acute distress, generalized icterus present HEENT: Atraumatic, Mucous membranes moist/pink, yellow sclera Respiratory: b/l breath sounds heard, Normal air movement, scattered crackles in b/l lungs Cardiovascular: Regular rate, Normal S1, Normal S2, No murmurs Abdominal: Active bowel sounds, Soft, no distention, tenderness in the epigastric region on palpation Extremities: No edema, Normal pulses, No tenderness/swelling Skin: No Significant rash, except past surgical scars Neuro: Normal speech, sensorimotor deficits none Psych/Mental Status: Mental status NL, Mood NL Nurse was there as bias machine operator helper during examination Labs/Xrays Labs Test 01/18/25 17:20 01/18/25 17:10 01/18/25 15:36 01/18/25 13:31 Range/Units Ammonia < 10 L 11-32 umol/L Prothrombin Time 19.4 H 9.3-11.8 sec Prothrombin Time INR 1.96 H 0.9-1.15 Activated Partial Thromboplast Time 35.9 H 24.5-34.5 SEC Magnesium Level 3.0 H 1.6-2.6 mg/dL Lipase 92 H 12-53 U/L Plasma/Serum Blood Alcohol < 3.0 <10 mg/dL Troponin I High Sensitivity 4692 *H </=54 ng/L Lactic Acid Level 2.2 *H 0.4-2.0 mmol/L Test 01/18/25 11:26 Range/Units White Blood Count 8.3 4.4-10.8 10^3/uL Red Blood Count 2.80 L 4.5-5.90 10^6/uL Hemoglobin 8.8 L 13.5-17.5 g/dL Hematocrit 25.9 L 41.0-53.0 % Mean Corpuscular Volume 92.7 80.0-100.0 fL Mean Corpuscular Hemoglobin 31.4 28.0-32.0 pg Mean Corpuscular Hemoglobin Concent 33.9 32.0-36.0 g/dL Red Cell Distribution Width 25.3 H 11.8-14.3 % Platelet Count 143 140-450 10^3/uL Mean Platelet Volume 7.9 6.9-10.8 fL Neutrophils (%) (Auto) 82.8 H 37.0-80.0 % Lymphocytes (%) (Auto) 10.5 10.0-50.0 % Monocytes (%) (Auto) 5.1 0.0-12.0 % Eosinophils (%) (Auto) 0.8 0.0-7.0 % Basophils (%) (Auto) 0.8 0.0-2.0 % Neutrophils # (Auto) 6.9 1.6-8.6 10 ^3/uL Lymphocytes # (Auto) 0.9 0.4-5.4 10 ^3/uL Monocytes # (Auto) 0.4 0-1.3 10 ^3/uL Eosinophils # (Auto) 0.1 0-0.8 10 ^3/uL Basophils # (Auto) 0.1 0-0.2 10 ^3/uL Nucleated Red Blood Cells 0.2 % Platelet Estimate Adequate Poikilocytosis (manual) Slight Anisocytosis (manual) Moderate Target Cells Few Schistocytes Few Sodium Level 132 #L 136-145 mmol/L Potassium Level 4.7 3.5-5.1 mmol/L Chloride Level 99 98-107 mmol/L Carbon Dioxide Level 16 L 20-31 mmol/L Anion Gap 17 H 5-15 Blood Urea Nitrogen 80 *H 9-23 mg/dL Creatinine 3.87 #H 0.700-1.30 mg/dL Glomerular Filtration Rate Calc 17 >90 mL/min BUN/Creatinine Ratio 20.7 H 10.0-20.0 Serum Glucose 114 H 74-106 mg/dL Calcium Level 9.4 8.7-10.4 mg/dL Total Bilirubin 8.1 H 0.2-1.0 mg/dL Aspartate Amino Transferase (AST) 242 H 13-40 U/L Alanine Aminotransferase (ALT) 118 H 7-40 U/L Alkaline Phosphatase 118 H 46-116 U/L B-Type Natriuretic Peptide > 5000.00 0-100 pg/mL Total Protein 6.9 5.7-8.2 g/dL Albumin 3.1 L 3.2-4.8 g/dL SEPSIS Sepsis Screen Date sepsis recognized/suspect: Jan 18, 2025 Time Sepsis recognized/suspect: 1547 Recent Procedure: No On Antibiotic Therapy: No Respiratory Rate >20: No Heart Rate >90: No Temp<36 C (96.8 F) or >38.3 C: No SBP <90 or MAP <65 mmHG: No New Acute Mental Status Change: No Is the patient on CPAP, BIPAP,: No Physician Orders Dental Laboratory Technology Teacher (01/18/25 ) Urinalysis (01/18/25 11:02) Ct Ab Pel Wo Con-No Oral Or Iv (01/18/25 11:02) Chest Portable (01/18/25 12:25) * Cardiology Consult (01/18/25 12:44) Admit (01/18/25 16:48) Allergies (01/18/25 16:48) Code Status (01/18/25 16:48) Sodium Chloride Lock (Saline Lock Ns) (01/18/25 22:00) Ondansetron Hcl (Zofran) (01/18/25 17:00) Docusate Sodium Capsule (Colace Capsule) (01/18/25 17:00) Complete Blood Count (01/19/25 04:00) Comprehensive Metabolic Panel (01/19/25 04:00) Npo (Nothing By Mouth) Diet (01/18/25 Dinner) Condition: Fair (01/18/25 16:48) Morphine Sulfate Injection (01/18/25 17:00) Nitroglycerin Sublingual (Ntrostat Subli (01/18/25 17:00) Morphine Sulfate Injection (01/18/25 17:00) Oxygen By Nasal Cannula (01/18/25 16:48) Stat Ekg For Chest Pain (01/18/25 16:48) Notify Md Of Changes From Base (01/18/25 16:48) Fisher Eel For 24 Hours (01/18/25 16:48) Emergency Dysrhythmia Protocol (01/18/25 16:48) Rhythm Strips Once Every Shift (01/18/25 16:48) Drug Screen (01/18/25 16:52) Urinalysis (01/18/25 16:52) Midodrine Tablet (Proamatine Tablet) (01/18/25 17:00) Spironolactone (Aldactone) (01/18/25 17:00) Thiamine Inj (01/18/25 17:00) (Nf) Atorvastatin Calcium (01/18/25 17:00) (Nf) Lactulose (01/18/25 17:00) LIVER (01/18/25 17:02) *[facility] (01/18/25 17:11) Blood Culture (01/18/25 17:49) Urine Bacterial Culture (01/18/25 17:49) Sequential Compression Device (01/18/25 17:54) Vital Signs Date Time Temp Pulse Resp B/P (MAP) Pulse Ox O2 Delivery O2 Flow Rate FiO2 01/18/25 18:00 85 18 93/50 (64) 98 01/18/25 16:00 97.7 90 18 98/36 (56) 100 97.7 01/18/25 15:49 98 Room Air* 0 21 01/18/25 15:42 86 16 98 Room Air* 0 21 01/18/25 15:00 84 18 97/45 (62) 100 01/18/25 14:18 86 01/18/25 14:00 88 18 115/52 (73) 100 01/18/25 13:58 115/52 01/18/25 13:00 97.6 84 18 103/55 (71) 100 97.6 01/18/25 12:59 64 01/18/25 12:52 87 01/18/25 11:21 97.6 83 18 106/60 (75) 96 97.6 Laboratory Tests Test 01/18/25 11:26 01/18/25 13:31 Lactic Acid Level 2.6 mmol/L (0.4-2.0) *H 2.2 mmol/L (0.4-2.0) *H White Blood Count 8.3 10^3/uL (4.4-10.8) Medications Medications Dose Ordered Sig/Luis Route Start Time Stop Time Status Last Admin Dose Admin Albumin Human 100 ml @ 100 mls/hr ONCE ONCE IV 01/18/25 13:15 01/18/25 14:14 DC 01/18/25 13:24 100 MLS/HR Ceftriaxone Sodium 50 ml @ 100 mls/hr ONCE ONCE IV 01/18/25 12:30 01/18/25 12:59 DC 01/18/25 13:16 100 MLS/HR Sodium Chloride 1,000 ml @ 1,000 mls/hr Q1H ONCE IV 01/18/25 12:45 01/18/25 13:44 DC 01/18/25 13:16 1,000 MLS/HR Assessment/Plan Assessment/Plan # Acute decompensated liver cirrhosis likely from alcohol/ medical nonadherence # Transaminitis likely due to above # Lactic acidosis likely from decompensation -Lactic acid 2.2; repeat lactic acid sent,pending -AST 242, ALT 118, ALP 118 -ammonia <10 -CT abdomen and pelvis shows cirrhotic liver, mild ascites -USG liver ordered, Pending -PT-19.4; INR 1.96; APTT 35.9 -Maddrey score: 46.7 (poor prognosis) -Meld score: 35 points (52.6% 3 month mortality) -lactulose 30 mg p.o. OD -urine culture, blood culture, pending -urine toxicology -Rocephin -IV multivitamin, thiamine, folic acid # NSTEMI likely type 2 due to demand ischemia from liver failure # Possible systolic CHF exacerbation -troponin I down trending (5334-->4692) -Cardiac consultation -EKG normal sinus rhythm -Repeat EKG -Hold GDMT Now # Hypotension likely from liver failure -Continuous monitoring - Midodrine # Severe AMANDA, likely VMN -GFR 17; creatinine 3.87; BUN 80 -Nephro consult, pending - ordered urine studies # Cholelithiasis -As seen in CT abdomen and pelvis -Outpatient follow up GI prophylaxis: Protonix 40mg IV daily DVT prophylaxis: SCD Diet: NPO Goals of care discussed with the patient for more than 27 minutes: Full code status Case discussed with Dr. Barron, patient and nurse. Plan discussed with: Patient, Other (rn) My Orders Orders - CAMERON PERAZA RESIDENT Procedure Category Date Status Time Admit ADMIT 01/18/25 Transmitted 16:48 Allergies LEROY 01/18/25 In Process 16:48 Code Status CODE 01/18/25 Transmitted 16:48 Sodium Chloride Lock PHA 01/18/25 Logged (Saline Lock Ns) 22:00 Ondansetron Hcl PHA 01/18/25 Logged (Zofran) 17:00 Docusate Sodium PHA 01/18/25 Logged Capsule (Colace 17:00 Complete Blood Count LAB 01/19/25 Verified 04:00 Comprehensive LAB 01/19/25 Verified Metabolic Panel 04:00 Npo (Nothing By DIET 01/18/25 Transmitted Mouth) Diet Dinner Condition: Fair LEROY 01/18/25 In Process 16:48 Morphine Sulfate [facility] 01/18/25 Logged Injection 17:00 Nitroglycerin [facility] 01/18/25 Logged Sublingual (Ntrostat 17:00 Morphine Sulfate PHA 01/18/25 Logged Injection 17:00 Oxygen By Nasal RT 01/18/25 Transmitted Cannula 16:48 Stat Ekg For Chest [facility] 01/18/25 In Process Pain 16:48 Notify Md Of Changes [facility] 01/18/25 In Process From Base 16:48 Fisher Eel For [facility] 01/18/25 In Process 24 Hours 16:48 Emergency Dysrhythmia [facility] 01/18/25 In Process Protocol 16:48 Rhythm Strips Once [facility] 01/18/25 In Process Every Shift 16:48 Drug Screen LAB 01/18/25 Logged 16:52 Urinalysis LAB 01/18/25 Logged 16:52 Midodrine Tablet [facility] 01/18/25 Logged (Proamatine Tablet) 17:00 Spironolactone PHA 01/18/25 Logged (Aldactone) 17:00 Thiamine Inj PHA 01/18/25 Logged 17:00 (Nf) Atorvastatin PHA 01/18/25 Logged Calcium 17:00 (Nf) Lactulose PHA 01/18/25 Logged 17:00 LIVER US 01/18/25 Taken 17:02 *[facility] CONS 01/18/25 Transmitted -[place] 17:11 Blood Culture DONTE 01/18/25 Uncollected 17:49 Urine Bacterial DONTE 01/18/25 Uncollected Culture 17:49 Sequential LEROY 01/18/25 In Process Compression Device 17:54 Date of Service: Jan 18, 2025 Billing Provider: MARKUS BARRON MD Common Visit Codes: 63743-[id number] INP/OBS CARE (LOW) Secondary Visit Codes: 35064-WLEZXADE CARE PLAN 30 MINUTES CAMERON PERAZA RESIDENT Jan 18, 2025 19:33 DANIEL MIRANDA RESIDENT Jan 18, 2025 19:47
[2025-01-18 20:00] VITALS: PULSE 87; PULSE 98; RESP 20; O2SAT 98
[2025-01-18 20:15] LABS: Lactic Acid w/Reflex 2.3 mmol/L (0.4-2.0)
[2025-01-18] MEDS: MIDODRINE HCL 10 MG TAB PO SCH (20:19)
[2025-01-18] MEDS: THIAMINE 100mg/ml INJ (200mg/2ml VIAL) IV ONE (20:31)
[2025-01-18] MEDS: SODIUM CHLOR 0.9% PF (SALINE LOCK) 10ML VIAL/SYR IV SCH (20:38)
[2025-01-18] MEDS: LACTULOSE 20Gm/30ML SOLN PO SCH (20:41)
--- NOTE | 2025-01-18 20:58 | DVHCONRES ---
Date Seen: Jan 18, 2025 Resident Creating Document: HENRI RINCON RESDIENT History of Present Illness 64-year-old male with past history of CAD, hypertension, hepatitis-C, HFrEF 30%, liver cirrhosis presented to the emergency department today morning due to acute epigastric abdominal pain. Patient reports that he had abdominal pain since yesterday evening that is pulsating and throbbing in nature, constant with 10/ 10 intensity, non-radiating, increased on movement to the left side, with no relieving factors. It is associated with shortness of breath, nausea and dec reased appetite. He denies any chest pain, fever, chills, vomiting or diarrhea. Patient and was recently discharged from this facility with lactulose and other medication but he has not been compliant with it. Cardiology called for raised troponin. Seen and examined at the bedside. Patient is complaining of nausea, vomiting, shortness of breaths and abdominal pain. Patient denies chest pain. Family History: FH: thrombocytopenia Hypertension G8 FATHER Allergies: Coded Allergies: NO KNOWN ALLERGIES (Unverified , 10/19/24) Home Meds Active Scripts Spironolactone (Aldactone) 25 Mg Tab, 25 MG PO DAILY for 30 Days, #30 TAB Prov:DANIEL MIRANDA RESIDENT 01/12/25 Lactulose (Lactulose) 10 Gm/15 Ml [place], 10 GM PO BID for 30 Days, #600 ML Prov:DANIEL MIRANDA RESIDENT 01/12/25 Amoxicillin & Pot Clavulanate (AUGMENTIN TABLET) 875 Mg Tb, 875 MG PO BID for 7 Days, #14 TAB Prov:DANIEL MIRANDA RESIDENT 01/12/25 Olanzapine (OLANZAPINE) 5 Mg Tab, 10 MG PO DAILY for 30 Days, #3 TAB 3 Refills Prov:JULIETTE HUTTON DO 10/29/24 Midodrine HCl (Midodrine HCl) 10 Mg Tab, 10 MG PO TID@0600,1200,1800 for 30 Days, #90 TAB 3 Refills Prov:JULIETTE HUTTON DO 10/29/24 Reported Medications Nitroglycerin (NTROSTAT SUBLINGUAL) 0.4 Mg Sl, 0.4 MG SL PRN, TAB *MAY REPEAT EVERY 5 MINUTES X 3 TOTAL IF NO RELIEF, INITIATE ANALGESIC THERAPY. NOTIFY PHYSICIAN *Do not crush. 10/17/24 Midodrine HCl (Midodrine HCl) 10 Mg Tab, 5 MG GT, TAB 10/17/24 Chlordiazepoxide HCl (Chlordiazepoxide Hydrochl) 25 Mg Cap, 25 MG PO, CAP 10/17/24 Thiamine Hcl (THIAMINE HCL) 100 Mg/Ml Inj, 50 MG IJ, INJ 10/17/24 Ranolazine (Ranolazine ER) 500 Mg Tab, 500 MG PO, TAB 10/17/24 Furosemide (Furosemide) 20 Mg Tab, 20 MG PO, TAB 10/17/24 Folic Vmux-Lkjdjhppon-Byxwsoxd (Folbic) Tab, 1 TAB PO DAILY, #90 TAB 1 Refill 10/17/24 Ferrous Sulfate (FERROUS SULFATE) 325 Mg Tb, 325 MG PO, TAB 10/17/24 Carvedilol (Carvedilol) 3.125 Mg Tab, 0.5 TAB PO BID, #60 TAB 3 Refills 10/17/24 Atorvastatin Calcium (ATORVASTATIN CALCIUM) 40 Mg Tab, 1 TAB PO DAILY, #30 TAB 5 Refills 10/17/24 Aspirin (Aspirin Low Dose) 81 Mg Chw, 81 MG PO, TAB.CHEW 10/17/24 Current Medications Current Medications Medications (Trade) Dose Ordered Sig/Luis Route PRN Reason Start Time Stop Time Status Last Admin Sodium Chloride (Saline Lock Ns) 10 ml Q8HR IV 01/18/25 22:00 01/18/25 20:38 Ondansetron HCl (Zofran) 4 mg Q4HP PRN IV NAUSEA / VOMITING 01/18/25 17:00 Docusate Sodium (Colace Capsule) 100 mg BIDPRN PRN PO FOR CONSTIPATION 01/18/25 17:00 Morphine Sulfate 2 mg Q4HPRN PRN IV SEVERE PAIN (7-10 PAIN SCALE) 01/18/25 17:00 Nitroglycerin (Ntrostat Sublingual) 0.4 mg Q5MINP PRN SL FOR CHEST PAIN 01/18/25 17:00 Morphine Sulfate 2 mg Q30M PRN IV FOR CHEST PAIN 01/18/25 17:00 Midodrine (Proamatine Tablet) 5 mg TID@0600,1200,1800 PO 01/18/25 18:00 01/18/25 20:19 Spironolactone (Aldactone) 25 mg DAILY PO 01/18/25 17:00 01/18/25 19:02 DC Thiamine HCl 50 mg DAILY IV 01/19/25 10:00 Patient Own Medication 1 tab DAILY PO 01/18/25 17:00 01/18/25 19:02 DC Lactulose 15 ml BID PO 01/18/25 22:00 Multivitamins (Mvi Tab) 1 tab DAILY PO 01/19/25 10:00 UNV Folic Acid 1 mg/ Dextrose 50.2 ml @ 200.8 mls/ hr DAILY INJ 01/19/25 10:00 UNV Pantoprazole Sodium (Protonix) 40 mg DAILY IV 01/19/25 10:00 UNV Vital Signs Vital Signs Date Time Temp Pulse Resp B/P (MAP) Pulse Ox O2 Delivery O2 Flow Rate FiO2 01/18/25 18:31 82 18 98 Nasal Cannula* 2 28 01/18/25 18:00 93/50 (64) 01/18/25 16:00 97.7 97.7 Physical Exam General Appearance: Alert, Oriented X3, Cooperative, No acute distress HEENT: Atraumatic, PERRLA, EOMI, Mucous membrane are dry Respiratory: Clear to auscultation, Normal air movement Cardiovascular: Regular rate, Normal S1, Normal S2, No murmurs, no chest wall tenderness Abdominal: Normal bowel sounds, Soft, No tenderness, No hepatospenomegaly, No masses Extremities: No clubbing, No cyanosis, No edema, Normal pulses, No tenderness/swelling Skin: No rashes, No breakdown, No significant lesion Neuro: Normal gait, Normal speech, Strength at 5/5 X4 ext, Normal tone, Sensation intact, Cranial nerves 3-12 NL, Reflexes 2+ Psych/Mental Status: Mental status NL, Mood NL Labs/Diagnostic Data Labs Test 01/18/25 18:47 01/18/25 17:20 01/18/25 17:10 01/18/25 15:36 Range/Units Lactic Acid Level 2.3 *H 0.4-2.0 mmol/L Ammonia < 10 L 11-32 umol/L Prothrombin Time 19.4 H 9.3-11.8 sec Prothrombin Time INR 1.96 H 0.9-1.15 Activated Partial Thromboplast Time 35.9 H 24.5-34.5 SEC Magnesium Level 3.0 H 1.6-2.6 mg/dL Lipase 92 H 12-53 U/L Plasma/Serum Blood Alcohol < 3.0 <10 mg/dL Troponin I High Sensitivity 4692 *H </=54 ng/L Test 01/18/25 11:26 Range/Units White Blood Count 8.3 4.4-10.8 10^3/uL Red Blood Count 2.80 L 4.5-5.90 10^6/uL Hemoglobin 8.8 L 13.5-17.5 g/dL Hematocrit 25.9 L 41.0-53.0 % Mean Corpuscular Volume 92.7 80.0-100.0 fL Mean Corpuscular Hemoglobin 31.4 28.0-32.0 pg Mean Corpuscular Hemoglobin Concent 33.9 32.0-36.0 g/dL Red Cell Distribution Width 25.3 H 11.8-14.3 % Platelet Count 143 140-450 10^3/uL Mean Platelet Volume 7.9 6.9-10.8 fL Neutrophils (%) (Auto) 82.8 H 37.0-80.0 % Lymphocytes (%) (Auto) 10.5 10.0-50.0 % Monocytes (%) (Auto) 5.1 0.0-12.0 % Eosinophils (%) (Auto) 0.8 0.0-7.0 % Basophils (%) (Auto) 0.8 0.0-2.0 % Neutrophils # (Auto) 6.9 1.6-8.6 10 ^3/uL Lymphocytes # (Auto) 0.9 0.4-5.4 10 ^3/uL Monocytes # (Auto) 0.4 0-1.3 10 ^3/uL Eosinophils # (Auto) 0.1 0-0.8 10 ^3/uL Basophils # (Auto) 0.1 0-0.2 10 ^3/uL Nucleated Red Blood Cells 0.2 % Platelet Estimate Adequate Poikilocytosis (manual) Slight Anisocytosis (manual) Moderate Target Cells Few Schistocytes Few Sodium Level 132 #L 136-145 mmol/L Potassium Level 4.7 3.5-5.1 mmol/L Chloride Level 99 98-107 mmol/L Carbon Dioxide Level 16 L 20-31 mmol/L Anion Gap 17 H 5-15 Blood Urea Nitrogen 80 *H 9-23 mg/dL Creatinine 3.87 #H 0.700-1.30 mg/dL Glomerular Filtration Rate Calc 17 >90 mL/min BUN/Creatinine Ratio 20.7 H 10.0-20.0 Serum Glucose 114 H 74-106 mg/dL Calcium Level 9.4 8.7-10.4 mg/dL Total Bilirubin 8.1 H 0.2-1.0 mg/dL Aspartate Amino Transferase (AST) 242 H 13-40 U/L Alanine Aminotransferase (ALT) 118 H 7-40 U/L Alkaline Phosphatase 118 H 46-116 U/L B-Type Natriuretic Peptide > 5000.00 0-100 pg/mL Total Protein 6.9 5.7-8.2 g/dL Albumin 3.1 L 3.2-4.8 g/dL Assessment Decompensated liver failure, likely due to alcohol use disorder/hepatitis-C Adult failure to thrive Hypotension, due to above AMANDA on CKD, likely via VMN NSTEMI, likely type 2 due to above Systolic heart failure * EKGs shows sinus rhythm with nonspecific ST depression with T-wave inversion on chest leads * Serial trop I is raised at 5000 and BNP is raised more than 5000 * Echo from 10/25/2024, shows EF 30% with global hypokinesia Plan/recommendation (Case discussed with Dr. Schneider) * Considering patient's current clinical status, patient as needed for the cardiology or, at the moment * Once patient kidney liver status improved, patient may benefit from ischemic workup on outpatient basis * Rest of plan per primary team Thank you for giving us the opportunity to take care of your patient. Please call back if you have any question/concern. Plan discussed with: Patient, Other (RN) HENRI RINCON Jan 18, 2025 20:58
[2025-01-18 21:00] VITALS: BP 117/66; PULSE 98; RESP 20; TEMP 97.1; O2SAT 98
[2025-01-18] MEDS: PANTOPRAZOLE 40 MG/10 ML VIAL INJ IV ONE (23:54)
[2025-01-19] VITALS (9 sets, daily range): BP systolic 108–119; BP diastolic 59–71; PULSE 90–102; RESP 18–21; TEMP 96.1–97.8; O2SAT 95–100
[2025-01-19 07:57] LABS: Alkaline Phosphatase 107 U/L (46-116); Anion Gap 18 (5-15); BUN/Creatinine Ratio 22.7 (10.0-20.0); Calcium 9.3 mg/dL (8.7-10.4); Chloride 101 mmol/L (98-107); Glucose 101 mg/dL (74-106); Potassium 4.7 mmol/L (3.5-5.1); Total Protein 6.7 g/dL (5.7-8.2)
[2025-01-19 07:58] LABS: Albumin 3.2 g/dL (3.2-4.8); Hematocrit 22.5 % (41.0-53.0); Hemoglobin 7.7 g/dL (13.5-17.5); Mean Corpuscular Hemoglobin 31.7 pg (28.0-32.0); Mean Corpuscular Volume 92.1 fL (80.0-100.0); Nucleated Red Blood Cells % 0.1 %
[2025-01-19 08:08] LABS: Carbon Dioxide 13 mmol/L (20-31); Sodium 132 mmol/L (136-145)
[2025-01-19 08:10] LABS: Alanine Aminotransferase 106 U/L (7-40); Bilirubin, Total 8.5 mg/dL (0.2-1.0); Blood Urea Nitrogen 94 mg/dL (9-23)
--- NOTE | 2025-01-19 09:38 | DVHINCON2 ---
Date of service: Jan 19, [address] Arenas Reason for Consultation Acute kidney injury History of Present Illness Mr. Silva is a 64-year-old male with known history of hepatitis-C, cirrhosis who presented for further evaluation and management of abdominal pain. Consultation requested due to elevated serum creatinine concern for hepatorenal syndrome. He is seen in his room, awake, alert, conversant. He reports significant thirst. Denies recent fever, hemoptysis, hematochezia, lower extremity edema or skin rash. Past Medical History CAD, HFrEF EF 30%, cirrhosis of liver, hepatitis-C infection, cholelithiasis, chronic subdural hematoma Allergies: Coded Allergies: NO KNOWN ALLERGIES (Unverified , 10/19/24) Home Meds Active Scripts Spironolactone (Aldactone) 25 Mg Tab, 25 MG PO DAILY for 30 Days, #30 TAB Prov:[facility] 01/12/25 Lactulose (Lactulose) 10 Gm/15 Ml [place], 10 GM PO BID for 30 Days, #600 ML Prov:[facility] 01/12/25 Amoxicillin & Pot Clavulanate (AUGMENTIN TABLET) 875 Mg Tb, 875 MG PO BID for 7 Days, #14 TAB Prov:[facility] 01/12/25 Olanzapine (OLANZAPINE) 5 Mg Tab, 10 MG PO DAILY for 30 Days, #3 TAB 3 Refills Prov:JULIETTE HUTTON DO 10/29/24 Midodrine HCl (Midodrine HCl) 10 Mg Tab, 10 MG PO TID@0600,1200,1800 for 30 Days, #90 TAB 3 Refills Prov:JULIETTE HUTTON DO 10/29/24 Reported Medications Nitroglycerin (NTROSTAT SUBLINGUAL) 0.4 Mg Sl, 0.4 MG SL PRN, TAB *MAY REPEAT EVERY 5 MINUTES X 3 TOTAL IF NO RELIEF, INITIATE ANALGESIC THERAPY. NOTIFY PHYSICIAN *Do not crush. 10/17/24 Midodrine HCl (Midodrine HCl) 10 Mg Tab, 5 MG GT, TAB 10/17/24 Chlordiazepoxide HCl (Chlordiazepoxide Hydrochl) 25 Mg Cap, 25 MG PO, CAP 10/17/24 Thiamine Hcl (THIAMINE HCL) 100 Mg/Ml Inj, 50 MG IJ, INJ 10/17/24 Ranolazine (Ranolazine ER) 500 Mg Tab, 500 MG PO, TAB 10/17/24 Furosemide (Furosemide) 20 Mg Tab, 20 MG PO, TAB 10/17/24 Folic Wplx-Oheybizhqy-Zgsvrfcy (Folbic) Tab, 1 TAB PO DAILY, #90 TAB 1 Refill 10/17/24 Ferrous Sulfate (FERROUS SULFATE) 325 Mg Tb, 325 MG PO, TAB 10/17/24 Carvedilol (Carvedilol) 3.125 Mg Tab, 0.5 TAB PO BID, #60 TAB 3 Refills 10/17/24 Atorvastatin Calcium (ATORVASTATIN CALCIUM) 40 Mg Tab, 1 TAB PO DAILY, #30 TAB 5 Refills 10/17/24 Aspirin (Aspirin Low Dose) 81 Mg Chw, 81 MG PO, TAB.CHEW 10/17/24 Current Medications Current Medications Medications (Trade) Dose Ordered Sig/Luis Route PRN Reason Start Time Stop Time Status Last Admin Sodium Chloride (Saline Lock Ns) 10 ml Q8HR IV 01/18/25 22:00 01/19/25 06:25 Ondansetron HCl (Zofran) 4 mg Q4HP PRN IV NAUSEA / VOMITING 01/18/25 17:00 Docusate Sodium (Colace Capsule) 100 mg BIDPRN PRN PO FOR CONSTIPATION 01/18/25 17:00 Morphine Sulfate 2 mg Q4HPRN PRN IV SEVERE PAIN (7-10 PAIN SCALE) 01/18/25 17:00 Nitroglycerin (Ntrostat Sublingual) 0.4 mg Q5MINP PRN SL FOR CHEST PAIN 01/18/25 17:00 Morphine Sulfate 2 mg Q30M PRN IV FOR CHEST PAIN 01/18/25 17:00 Midodrine (Proamatine Tablet) 5 mg TID@0600,1200,1800 PO 01/18/25 18:00 01/19/25 06:24 Spironolactone (Aldactone) 25 mg DAILY PO 01/18/25 17:00 01/18/25 19:02 DC Thiamine HCl 50 mg DAILY IV 01/19/25 10:00 Patient Own Medication 1 tab DAILY PO 01/18/25 17:00 01/18/25 19:02 DC Lactulose 15 ml BID PO 01/18/25 22:00 Multivitamins (Mvi Tab) 1 tab DAILY PO 01/19/25 10:00 Folic Acid 1 mg/ Dextrose 50.2 ml @ 200.8 mls/ hr DAILY INJ 01/19/25 10:00 Pantoprazole Sodium (Protonix) 40 mg DAILY IV 01/19/25 10:00 Family History: FH: thrombocytopenia Hypertension G8 FATHER Review of Systems As per history of present illness otherwise all systems are reviewed and are noncontributory H&P Exam Vital Signs/I&O Vital Sign Date Time Temp Pulse Resp B/P (MAP) Pulse Ox O2 Delivery O2 Flow Rate FiO2 01/19/25 08:51 96.3 102 20 119/59 (79) 99 96.3 01/19/25 07:30 Nasal Cannula* 2 28 Intake and Output 01/18/25 01/19/25 19:00 07:00 Intake Total 1150 ml 0 ml Balance 1150 ml 0 ml Intake Oral 0 ml IV Total 1150 ml Physical Exam Gen: nad, cachectic heent: nc/at, mmm lungs: cta anteriorly cvs: no rub abd: soft, bowel sounds audible ext: no edema skin: no rash neuro: Conversant Labs/Diagnostic Data Labs/Diagnostic Data Laboratory Tests Test 01/19/25 06:54 01/18/25 18:47 01/18/25 17:20 01/18/25 17:10 Range/Units White Blood Count 9.0 4.4-10.8 10^3/uL Red Blood Count 2.44 L 4.5-5.90 10^6/uL Hemoglobin 7.7 L 13.5-17.5 g/dL Hematocrit 22.5 #L 41.0-53.0 % Mean Corpuscular Volume 92.1 80.0-100.0 fL Mean Corpuscular Hemoglobin 31.7 28.0-32.0 pg Mean Corpuscular Hemoglobin Concent 34.4 32.0-36.0 g/dL Red Cell Distribution Width 25.0 H 11.8-14.3 % Platelet Count 117 L 140-450 10^3/uL Mean Platelet Volume 7.7 6.9-10.8 fL Neutrophils (%) (Auto) 81.8 H 37.0-80.0 % Lymphocytes (%) (Auto) 12.1 10.0-50.0 % Monocytes (%) (Auto) 5.1 0.0-12.0 % Eosinophils (%) (Auto) 0.9 0.0-7.0 % Basophils (%) (Auto) 0.1 0.0-2.0 % Neutrophils # (Auto) 7.3 1.6-8.6 10 ^3/uL Lymphocytes # (Auto) 1.1 0.4-5.4 10 ^3/uL Monocytes # (Auto) 0.5 0-1.3 10 ^3/uL Eosinophils # (Auto) 0.1 0-0.8 10 ^3/uL Basophils # (Auto) 0 0-0.2 10 ^3/uL Nucleated Red Blood Cells 0.1 % Sodium Level 132 L 136-145 mmol/L Potassium Level 4.7 3.5-5.1 mmol/L Chloride Level 101 98-107 mmol/L Carbon Dioxide Level 13 L 20-31 mmol/L Anion Gap 18 H 5-15 Blood Urea Nitrogen 94 #*H 9-23 mg/dL Creatinine 4.15 H 0.700-1.30 mg/dL Glomerular Filtration Rate Calc 15 >90 mL/min BUN/Creatinine Ratio 22.7 H 10.0-20.0 Serum Glucose 101 74-106 mg/dL Lactic Acid Level 1.8 2.3 *H 0.4-2.0 mmol/L Calcium Level 9.3 8.7-10.4 mg/dL Total Bilirubin 8.5 H 0.2-1.0 mg/dL Aspartate Amino Transferase (AST) 207 H 13-40 U/L Alanine Aminotransferase (ALT) 106 H 7-40 U/L Alkaline Phosphatase 107 46-116 U/L Total Protein 6.7 5.7-8.2 g/dL Albumin 3.2 3.2-4.8 g/dL Ammonia < 10 L 11-32 umol/L Prothrombin Time 19.4 H 9.3-11.8 sec Prothrombin Time INR 1.96 H 0.9-1.15 Activated Partial Thromboplast Time 35.9 H 24.5-34.5 SEC Magnesium Level 3.0 H 1.6-2.6 mg/dL Lipase 92 H 12-53 U/L Plasma/Serum Blood Alcohol < 3.0 <10 mg/dL Test 01/18/25 15:36 01/18/25 13:31 01/18/25 11:26 Range/Units Troponin I High Sensitivity 4692 *H 5049 *H 5334 *H </=54 ng/L Lactic Acid Level 2.2 *H 2.6 *H 0.4-2.0 mmol/L White Blood Count 8.3 4.4-10.8 10^3/uL Red Blood Count 2.80 L 4.5-5.90 10^6/uL Hemoglobin 8.8 L 13.5-17.5 g/dL Hematocrit 25.9 L 41.0-53.0 % Mean Corpuscular Volume 92.7 80.0-100.0 fL Mean Corpuscular Hemoglobin 31.4 28.0-32.0 pg Mean Corpuscular Hemoglobin Concent 33.9 32.0-36.0 g/dL Red Cell Distribution Width 25.3 H 11.8-14.3 % Platelet Count 143 140-450 10^3/uL Mean Platelet Volume 7.9 6.9-10.8 fL Neutrophils (%) (Auto) 82.8 H 37.0-80.0 % Lymphocytes (%) (Auto) 10.5 10.0-50.0 % Monocytes (%) (Auto) 5.1 0.0-12.0 % Eosinophils (%) (Auto) 0.8 0.0-7.0 % Basophils (%) (Auto) 0.8 0.0-2.0 % Neutrophils # (Auto) 6.9 1.6-8.6 10 ^3/uL Lymphocytes # (Auto) 0.9 0.4-5.4 10 ^3/uL Monocytes # (Auto) 0.4 0-1.3 10 ^3/uL Eosinophils # (Auto) 0.1 0-0.8 10 ^3/uL Basophils # (Auto) 0.1 0-0.2 10 ^3/uL Nucleated Red Blood Cells 0.2 % Platelet Estimate Adequate Poikilocytosis (manual) Slight Anisocytosis (manual) Moderate Target Cells Few Schistocytes Few Sodium Level 132 #L 136-145 mmol/L Potassium Level 4.7 3.5-5.1 mmol/L Chloride Level 99 98-107 mmol/L Carbon Dioxide Level 16 L 20-31 mmol/L Anion Gap 17 H 5-15 Blood Urea Nitrogen 80 *H 9-23 mg/dL Creatinine 3.87 #H 0.700-1.30 mg/dL Glomerular Filtration Rate Calc 17 >90 mL/min BUN/Creatinine Ratio 20.7 H 10.0-20.0 Serum Glucose 114 H 74-106 mg/dL Calcium Level 9.4 8.7-10.4 mg/dL Total Bilirubin 8.1 H 0.2-1.0 mg/dL Aspartate Amino Transferase (AST) 242 H 13-40 U/L Alanine Aminotransferase (ALT) 118 H 7-40 U/L Alkaline Phosphatase 118 H 46-116 U/L B-Type Natriuretic Peptide > 5000.00 0-100 pg/mL Total Protein 6.9 5.7-8.2 g/dL Albumin 3.1 L 3.2-4.8 g/dL Assessment IMP: 1) Hemodynamically mediated acute kidney injury, noted consideration for possible hepatorenal syndrome 2) CKD stage IIIB, baseline creatinine unknown to this account underwriter 3) hepatitis-C, cirrhosis 4) abdominal pain 5) history of heart failure with reduced ejection fraction REC: - limited trial of volume expansion, we will reassess daily - urine studies still pending. - general recommendations to avoid NSAIDs, intravenous contrast studies if able. - we will check kidney ultrasound, serial chemistry panels Agree with current plan of care, thank you for the consultation. Plan discussed with: Patient SHERYL CONNORS MD Jan 19, 2025 09:38
[2025-01-19] MEDS: SODIUM CHLORIDE 0.9% 1,000 ML IV ONE (09:50)
[2025-01-19] MEDS: PANTOPRAZOLE 40 MG/10 ML VIAL INJ IV SCH (09:50)
[2025-01-19] MEDS: MULTIPLE VITAMIN TAB PO SCH (09:52)
[2025-01-19] MEDS: THIAMINE 100mg/ml INJ (200mg/2ml VIAL) IV SCH (09:52)
[2025-01-19] MEDS: FOLIC ACID 1 MG in D5W 5% 50 ML INJ SCH (10:25)
[2025-01-19 14:03] LABS: Urine Protein, UAD 1+ (Negative)
[2025-01-19 14:08] LABS: Protein, Urine 102.6 mg/dL (1-14)
[2025-01-19 14:11] LABS: Benzodiazephine Screen, Urine Neg (NEGATIVE)
[2025-01-19 14:13] LABS: Amphetamine Screen, Urine Neg (NEGATIVE); Barbiturate Scree,Urine Neg (NEGATIVE); Cannabinoid Screen, Urine Neg (NEGATIVE); Cocaine Screen, Urine Neg (NEGATIVE); Opiate Scree,Urine Neg (NEGATIVE); Phencyclidine Screen, Urine Neg (NEGATIVE)
--- NOTE | 2025-01-19 15:40 | DVHPN2 ---
Objective Vitals Vital Signs Date Time Temp Pulse Resp B/P (MAP) Pulse Ox O2 Delivery O2 Flow Rate FiO2 01/19/25 13:00 96.1 94 18 108/69 (82) 97 96.1 01/19/25 07:30 Nasal Cannula* 2 28 Intake/Output Intake and Output 01/19/25 07:00 Intake Total 1150 ml Balance 1150 ml Intake Oral 0 ml IV Total 1150 ml Medications Current Medications Medications Dose Ordered Sig/Luis Route Start Time Stop Time Status Last Admin Dose Admin Sodium Chloride 10 ml Q8HR IV 01/18/25 22:00 01/19/25 12:43 10 ML Ondansetron HCl 4 mg Q4HP PRN IV 01/18/25 17:00 Docusate Sodium 100 mg BIDPRN PRN PO 01/18/25 17:00 Morphine Sulfate 2 mg Q4HPRN PRN IV 01/18/25 17:00 Nitroglycerin 0.4 mg Q5MINP PRN SL 01/18/25 17:00 Morphine Sulfate 2 mg Q30M PRN IV 01/18/25 17:00 Midodrine 5 mg TID@0600,1200,1800 PO 01/18/25 18:00 01/19/25 12:28 5 MG Thiamine HCl 50 mg DAILY IV 01/19/25 10:00 01/19/25 09:52 50 MG Lactulose 15 ml BID PO 01/18/25 22:00 01/19/25 09:52 15 ML Multivitamins 1 tab DAILY PO 01/19/25 10:00 01/19/25 09:52 1 TAB Folic Acid 1 mg/ Dextrose 50.2 ml @ 200.8 mls/ hr DAILY INJ 01/19/25 10:00 01/19/25 10:25 200.8 MLS/HR Pantoprazole Sodium 40 mg DAILY IV 01/19/25 10:00 01/19/25 09:50 40 MG Laboratory Results Laboratory Tests 01/19/25 06:54 Chemistry Test 01/18/25 17:10 01/19/25 06:54 Magnesium Level 3.0 mg/dL (1.6-2.6) H Albumin 3.2 g/dL (3.2-4.8) Calcium Level 9.3 mg/dL (8.7-10.4) Total Protein 6.7 g/dL (5.7-8.2) Coagulation Test 01/18/25 17:10 Prothrombin Time 19.4 sec (9.3-11.8) H Prothrombin Time INR 1.96 (0.9-1.15) H Activated Partial Thromboplast Time 35.9 SEC (24.5-34.5) H Lipid panel Test 01/18/25 17:10 Lipase 92 U/L (12-53) H LFT Test 01/19/25 06:54 Alanine Aminotransferase (ALT) 106 U/L (7-40) H Alkaline Phosphatase 107 U/L (46-116) Aspartate Amino Transferase (AST) 207 U/L (13-40) H Total Bilirubin 8.5 mg/dL (0.2-1.0) H Urinalysis Test 01/19/25 13:41 Urine Color Yellow (Yellow) Urine Clarity Hazy (Clear) H Urine pH 5.0 (5.0-9.0) Urine Specific [place] 1.018 (1.001-1.035) Urine Protein 1+ (Negative) H Urine Ketones Negative (Negative) Urine Blood Trace /uL (Negative) H Urine Nitrite Negative (Negative) Urine Bilirubin Negative (Negative) Urine Urobilinogen Normal mg/dL (Negative) Urine Leukocyte Esterase Negative /uL (Negative) Urine RBC 2 /hpf (0 - 3) Urine Microscopic WBC 7 /HPF (0-3) H Urine Squamous Epithelial Cells Few /hpf (<5) Urine Bacteria Few /hpf (None Seen) H Urine Hyaline Casts Mod /lpf (0 - 2) Urine Osmolality 369 mOsm/kg Urine Creatinine 218.29 mg/dL (30.0-125.0) H Urine Sodium < 10 mmol/L (40-220) L Urine Glucose Trace mg/dL (Normal) Urine Total Protein 102.6 mg/dL (1-14) H Microbiology Microbiology Date/Time Source Procedure Growth Status 01/18/25 20:37 Nose MRSA Screen - Final Complete ROSE CROWE MD Jan 19, 2025 15:40
--- NOTE | 2025-01-19 18:50 | DVHPN2 ---
Subjective I am assuming the care of the patient from today onwards who was under the care of the hospitalist team. Chart reviewed, consultants notes reviewed. Patient denies any complaints, complains of poor appetite. family member at bedside was asking about abdominal distention and asking me if patient needs fluid removed from the abdomen. All the questions were answered. Changes from previous H/P or p: No Changes Objective Vitals Vital Signs Date Time Temp Pulse Resp B/P (MAP) Pulse Ox O2 Delivery O2 Flow Rate FiO2 01/19/25 16:32 96.3 94 20 114/64 (81) 96 96.3 01/19/25 07:30 Nasal Cannula* 2 28 Intake/Output Intake and Output 01/19/25 07:00 Intake Total 1150 ml Balance 1150 ml Intake Oral 0 ml IV Total 1150 ml Exam HEENT pupils are reactive Neck is supple CV is S1-S2 regular rate and rhythm Respiratory bilateral diminished breath sounds at bases GI positive bowel sounds positive ascites Extremities no pedal edema COMPENSATION AND HRIS ANALYST no motor deficit Medications Current Medications Medications Dose Ordered Sig/Luis Route Start Time Stop Time Status Last Admin Dose Admin Sodium Chloride 10 ml Q8HR IV 01/18/25 22:00 01/19/25 12:43 10 ML Ondansetron HCl 4 mg Q4HP PRN IV 01/18/25 17:00 Docusate Sodium 100 mg BIDPRN PRN PO 01/18/25 17:00 Morphine Sulfate 2 mg Q4HPRN PRN IV 01/18/25 17:00 Nitroglycerin 0.4 mg Q5MINP PRN SL 01/18/25 17:00 Morphine Sulfate 2 mg Q30M PRN IV 01/18/25 17:00 Midodrine 5 mg TID@0600,1200,1800 PO 01/18/25 18:00 01/19/25 12:28 5 MG Thiamine HCl 50 mg DAILY IV 01/19/25 10:00 01/19/25 09:52 50 MG Lactulose 15 ml BID PO 01/18/25 22:00 01/19/25 09:52 15 ML Multivitamins 1 tab DAILY PO 01/19/25 10:00 01/19/25 09:52 1 TAB Folic Acid 1 mg/ Dextrose 50.2 ml @ 200.8 mls/ hr DAILY INJ 01/19/25 10:00 01/19/25 10:25 200.8 MLS/HR Pantoprazole Sodium 40 mg DAILY IV 01/19/25 10:00 01/19/25 09:50 40 MG Laboratory Results Laboratory Tests 01/19/25 06:54 Chemistry Test 01/19/25 06:54 Albumin 3.2 g/dL (3.2-4.8) Calcium Level 9.3 mg/dL (8.7-10.4) Total Protein 6.7 g/dL (5.7-8.2) LFT Test 01/19/25 06:54 Alanine Aminotransferase (ALT) 106 U/L (7-40) H Alkaline Phosphatase 107 U/L (46-116) Aspartate Amino Transferase (AST) 207 U/L (13-40) H Total Bilirubin 8.5 mg/dL (0.2-1.0) H Urinalysis Test 01/19/25 13:41 Urine Color Yellow (Yellow) Urine Clarity Hazy (Clear) H Urine pH 5.0 (5.0-9.0) Urine Specific [place] 1.018 (1.001-1.035) Urine Protein 1+ (Negative) H Urine Ketones Negative (Negative) Urine Blood Trace /uL (Negative) H Urine Nitrite Negative (Negative) Urine Bilirubin Negative (Negative) Urine Urobilinogen Normal mg/dL (Negative) Urine Leukocyte Esterase Negative /uL (Negative) Urine RBC 2 /hpf (0 - 3) Urine Microscopic WBC 7 /HPF (0-3) H Urine Squamous Epithelial Cells Few /hpf (<5) Urine Bacteria Few /hpf (None Seen) H Urine Hyaline Casts Mod /lpf (0 - 2) Urine Osmolality 369 mOsm/kg Urine Creatinine 218.29 mg/dL (30.0-125.0) H Urine Sodium < 10 mmol/L (40-220) L Urine Glucose Trace mg/dL (Normal) Urine Total Protein 102.6 mg/dL (1-14) H Microbiology Microbiology Date/Time Source Procedure Growth Status 01/18/25 20:37 Nose MRSA Screen - Final Complete Assessment/Plan Assessment/Plan 64-year-old male with a known history of 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 Acute kidney injury with a underlying CKD suspect hepatorenal syndrome 2. End-stage liver disease with alcoholic liver cirrhosis with ascites with history of chronic alcoholism 3. Elevated troponin suspect NSTEMI type 2, 4. Acute on chronic congestive heart failure systolic dysfunction with EF of 30% with a underlying coronary artery disease 4. Relative hypotension currently on midodrine 5. Transaminitis secondary to liver disease 6. Metabolic acidosis secondary to acute kidney injury with underlying CKD -continue gentle IV hydration for hypotension, midodrine, resume beta ricardo once blood pressure tolerates , -follow up with Nephrology, Cardiology recommendations. -plan of care discussed with the patient as well as with the patient's family member at bedside as well as bedside RN. Plan discussed with: Patient, Other (Family member at bedside.) Date of Service: Jan 19, 2025 Billing Provider: ROSE CROWE MD Common Visit Codes: [id number] INP/OBS CARE(MOD) ROSE CROWE MD Jan 19, 2025 18:50
[2025-01-19] MEDS ORDERED: HYDROmorphone HCL 2 MG/ML VL/or syr IV PRN (20:30)
[2025-01-20 01:00] VITALS: BP 117/55; PULSE 91; RESP 18; TEMP 98; O2SAT 91
[2025-01-20 05:00] VITALS: BP 103/43; PULSE 69; RESP 18; TEMP 97.8; O2SAT 93
[2025-01-20] MEDS ORDERED: ETOMIDATE (2MG/ML) 20ML VIAL IV ONE (05:22)
[2025-01-20] MEDS ORDERED: SUCCINYLCHOLINE CHLORIDE 20 MG/ML 10ML VIAL IV ONE (05:22)
--- NOTE | 2025-01-20 07:16 | RESUS ---
[facility]OM[facility] FU ASSESSSMENT History of Events History of Events: Pt was admitted on 01/18/25 for abdominal pain to telemetry. classroom monitor techs called and notified of pt's decreased heart rate. Upon assessing pt, found pt to be pulseless. CPR started and THOM[facility] FU called. Initial Information Date: Jan 20, 2025 Time: 05:18 [place] Arrest: [place] Witnessed: No CPR started initial time: 05:18 CPR started by whom: Hospital Staff Last seen well: 0505 Pre-Hospital Care: Pre-Code Care (inpatient) Type of arrest: Cardiac, Respiratory, Adult, Unwitnessed Spontaneous Respirations: No Pulse Present: No Monitoring: ECG, Pulse Oximetry, Telemetry Crash Cart Opened and Supplies: Yes Airway Ventilation Breathing at Onset: Assisted Oxygen Delivery Method: Ambu-Bag Time of first Assisted Ventila: 05:18 Artificial Ventilation: Bag/Mask Intubation Time: 05:25 Intubation Size: 8.0 cuffed Intubated by: RT Stefany Intubation Attempts: 1 Intubated orally: Yes Intubated Nasaly: No Tube secured at: 24 (cm @ teeth) Cricoid pressure done: Yes CO2 indicator used: Yes Confirmation: Auscultation, Exhaled CO2 Suctioning (Oral/Tracheal): Yes Circulation Circulation #1: Time: 05:18 Pulse Rate (adult): 0 Blood Pressure Systolic: 0 Blood Pressure Diastolic: 0 Temperature (Fahrenheit): 91.7 (F; rectal) Circulation #2: Time: 05:20 Pulse Rate (adult): 0 Blood Pressure Systolic: 0 Blood Pressure Diastolic: 0 Circulation Comment: PEA Circulation #3: Time: 05:22 Pulse Rate (adult): 0 Blood Pressure Systolic: 0 Blood Pressure Diastolic: 0 Circulation Comment: VFib Circulation #4: Time: 05:24 Pulse Rate (adult): 0 Blood Pressure Systolic: 0 Blood Pressure Diastolic: 0 Circulation Comment: PEA Circulation #5: Time: 05:26 Pulse Rate (adult): 0 Blood Pressure Systolic: 0 Blood Pressure Diastolic: 0 Circulation Comment: PEA Circulation #6: Time: 05:28 Pulse Rate (adult): 0 Blood Pressure Systolic: 0 Blood Pressure Diastolic: 0 Circulation Comment: PEA Circulation #7: Time: 05:30 Pulse Rate (adult): 0 Blood Pressure Systolic: 0 Blood Pressure Diastolic: 0 Circulation Comment: Asystole Circulation #8: Time: 05:32 Pulse Rate (adult): 0 Blood Pressure Systolic: 0 Blood Pressure Diastolic: 0 Circulation Comment: Asystole Circulation #9: Time: 05:34 Pulse Rate (adult): 0 Blood Pressure Systolic: 0 Blood Pressure Diastolic: 0 Circulation Comment: Asystole Circulation #10: Time: 05:36 Pulse Rate (adult): 0 Blood Pressure Systolic: 0 Blood Pressure Diastolic: 0 Circulation Comment: Asystole Circulation #11: Time: 05:38 Pulse Rate (adult): 0 Blood Pressure Systolic: 0 Blood Pressure Diastolic: 0 Circulation Comment: Asystole Circulation #12: Time: 05:40 Pulse Rate (adult): 0 Blood Pressure Systolic: 0 Blood Pressure Diastolic: 0 Circulation Comment: Asystole Circulation #13: Time: 05:42 Pulse Rate (adult): 0 Blood Pressure Systolic: 0 Blood Pressure Diastolic: 0 Circulation Comment: PEA; TOD Defibrillation Defbrillation : Time Defibrillator Applied: 05:22 EKG Rhythm: V-Fibrillation Compressions: Manual Time Defibrillator Shocked Pt.: 05:22 Defib. Joules: 120 Pulse Present: No Procedure - IV Procedure - IV : IV Side: Left IV Location: Antecubital IV Catheter Type: Saline Lock IV Placed: RN IV Gauge: 20 IV Line Care: Saline Flush Comment IV placed prior to code Medications & Response Medications and Responses #1: Medication Time: 05:18 ADULT Medications Given ADULT: Epinephrine 1 mg Route of Administration: IV Heart Rate: 0 Blood Pressure Systolic: 0 Blood Pressure Diastolic: 0 Respiratory Rate: 0 Medications and Responses #2: Medication Time: 05:20 ADULT Medications Given ADULT: Sodium Bacarbinate 50 meq Route of Administration: IV Heart Rate: 0 EKG Rhythm: PEA Blood Pressure Systolic: 0 Blood Pressure Diastolic: 0 Respiratory Rate: 0 Medications and Responses #3: Medication Time: 05:21 ADULT Medications Given ADULT: Calcium Chloride 10 mL Route of Administration: IV Heart Rate: 0 Blood Pressure Systolic: 0 Blood Pressure Diastolic: 0 Respiratory Rate: 0 Medications and Responses #4: Medication Time: 05:23 ADULT Medications Given ADULT: Epinephrine 1 mg Route of Administration: IV Heart Rate: 0 Blood Pressure Systolic: 0 Blood Pressure Diastolic: 0 Respiratory Rate: 0 Medications and Responses #5: Medication Time: 05:26 ADULT Medications Given ADULT: Sodium Bacarbinate 50 meq Route of Administration: IV Heart Rate: 0 Blood Pressure Systolic: 0 Blood Pressure Diastolic: 0 Respiratory Rate: 0 Medications and Responses #6: Medication Time: 05:27 ADULT Medications Given ADULT: Calcium Chloride 10 mL Route of Administration: IV Heart Rate: 0 Blood Pressure Systolic: 0 Blood Pressure Diastolic: 0 Respiratory Rate: 0 Medications and Responses #7: Medication Time: 05:28 ADULT Medications Given ADULT: Epinephrine 1 mg Route of Administration: IV Heart Rate: 0 Blood Pressure Systolic: 0 Blood Pressure Diastolic: 0 Respiratory Rate: 0 Medications and Responses #8: Medication Time: 05:31 ADULT Medications Given ADULT: Sodium Bacarbinate 50 meq Route of Administration: IV Heart Rate: 0 Blood Pressure Systolic: 0 Blood Pressure Diastolic: 0 Respiratory Rate: 0 Medications and Responses #9: Medication Time: 05:32 ADULT Medications Given ADULT: Epinephrine 1 mg Route of Administration: IV Heart Rate: 0 Blood Pressure Systolic: 0 Blood Pressure Diastolic: 0 Respiratory Rate: 0 Medications and Responses #10: Medication Time: 05:36 ADULT Medications Given ADULT: Epinephrine 1 mg Route of Administration: IV Heart Rate: 0 Blood Pressure Systolic: 0 Blood Pressure Diastolic: 0 Respiratory Rate: 0 Medications and Responses #11: Medication Time: 05:37 ADULT Medications Given ADULT: Sodium Bacarbinate 50 meq Route of Administration: IV Heart Rate: 0 Blood Pressure Systolic: 0 Blood Pressure Diastolic: 0 Respiratory Rate: 0 Medications and Responses #12: Medication Time: 05:40 ADULT Medications Given ADULT: Epinephrine 1 mg Route of Administration: IV Heart Rate: 0 Blood Pressure Systolic: 0 Blood Pressure Diastolic: 0 Respiratory Rate: 0 Medications and Responses #13: Medication Time: 05:41 ADULT Medications Given ADULT: Sodium Bacarbinate 50 meq Route of Administration: IV Heart Rate: 0 Blood Pressure Systolic: 0 Blood Pressure Diastolic: 0 Respiratory Rate: 0 Nurses Notes Morris Coma Scale Eye Opening: None (1) Morris Coma Scale Verbal: None (1) Nicholas Coma Scale Motor: None (1) Glascow Total: 3 Pupil Reaction: Non Reactive Bedside Blood Glucose: 83 Time Code Ended Time Code Ended: 05:42 Post Arrest Status: Outcome of code: Unsuccessful Patient pronounced by: FRANCIS Parsons Time patient pronounced: 05:42 Family notified: Yes Code Team Present: FRANCIS Parsons - Hospitalist; Dr Reed, Resident; Noemy Beach RN - ICU Charge; Riri Perry RN - Pressure Tank Operator; Harmony Brown RT; Esmer Castillo RN - East Charge; Claire Tay RN - West Charge; Yojana Laureano RN - Primary RN; Juany Beach, RN; Niranjan Guzman, RN; Agustina Hinds RN; Cassandra Brown, CCT; Aime Bergerno, ERT; Ld Beach, Motel Front Desk Clerk Student Riri Knox Jan 20, 2025 07:16
[2025-01-20 08:00] VITALS: PULSE 0
[2025-01-20] MEDS ORDERED: CALCIUM CHLOR(10%) 100MG/ML 10ML SYRINGE IV ONE (11:17)
[2025-01-20] MEDS ORDERED: EPINEPHrine HCL 1 MG/10 ML SYRG IV ONE (11:18)
[2025-01-20] MEDS ORDERED: SODIUM BICARB 8.4% 50Meq/50ml SYR INJ IV ONE (11:19)
--- NOTE | 2025-01-20 11:54 | DVHDS2 ---
Summary Date of Admission Jan 18, 2025 at 16:48 Date and Time of Expiration: Jan 20, 2025 05:42 Labs/Diagnostic Data: Laboratory Results Test 01/20/25 05:22 01/19/25 13:41 01/19/25 06:54 01/18/25 17:20 POC Glucose 83 mg/dl (70-106) Urine Color Yellow (Yellow) Urine Clarity Hazy (Clear) Urine pH 5.0 (5.0-9.0) Urine Specific [place] 1.018 (1.001-1.035) Urine Protein 1+ (Negative) Urine Ketones Negative (Negative) Urine Blood Trace /uL (Negative) Urine Nitrite Negative (Negative) Urine Bilirubin Negative (Negative) Urine Urobilinogen Normal mg/dL (Negative) Urine Leukocyte Esterase Negative /uL (Negative) Urine RBC 2 /hpf (0 - 3) Urine Microscopic WBC 7 /HPF (0-3) Urine Squamous Epithelial Cells Few /hpf (<5) Urine Bacteria Few /hpf (None Seen) Urine Hyaline Casts Mod /lpf (0 - 2) Urine Osmolality 369 mOsm/kg Urine Creatinine 218.29 mg/dL (30.0-125.0) Urine Sodium < 10 mmol/L (40-220) Urine Glucose Trace mg/dL (Normal) Urine Total Protein 102.6 mg/dL (1-14) Urine Opiates Screen Neg (NEGATIVE) Urine Fentanyl Screen Neg (NEGATIVE) Urine Barbiturates Screen Neg (NEGATIVE) Urine Phencyclidine Screen Neg (NEGATIVE) Urine Amphetamines Screen Neg (NEGATIVE) Urine Benzodiazepines Screen Neg (NEGATIVE) Urine Cocaine Screen Neg (NEGATIVE) Urine Cannabinoids Screen Neg (NEGATIVE) White Blood Count 9.0 10^3/uL (4.4-10.8) Red Blood Count 2.44 10^6/uL (4.5-5.90) Hemoglobin 7.7 g/dL (13.5-17.5) Hematocrit 22.5 % (41.0-53.0) Mean Corpuscular Volume 92.1 fL (80.0-100.0) Mean Corpuscular Hemoglobin 31.7 pg (28.0-32.0) Mean Corpuscular Hemoglobin Concent 34.4 g/dL (32.0-36.0) Red Cell Distribution Width 25.0 % (11.8-14.3) Platelet Count 117 10^3/uL (140-450) Mean Platelet Volume 7.7 fL (6.9-10.8) Neutrophils (%) (Auto) 81.8 % (37.0-80.0) Lymphocytes (%) (Auto) 12.1 % (10.0-50.0) Monocytes (%) (Auto) 5.1 % (0.0-12.0) Eosinophils (%) (Auto) 0.9 % (0.0-7.0) Basophils (%) (Auto) 0.1 % (0.0-2.0) Neutrophils # (Auto) 7.3 10 ^3/uL (1.6-8.6) Lymphocytes # (Auto) 1.1 10 ^3/uL (0.4-5.4) Monocytes # (Auto) 0.5 10 ^3/uL (0-1.3) Eosinophils # (Auto) 0.1 10 ^3/uL (0-0.8) Basophils # (Auto) 0 10 ^3/uL (0-0.2) Nucleated Red Blood Cells 0.1 % Sodium Level 132 mmol/L (136-145) Potassium Level 4.7 mmol/L (3.5-5.1) Chloride Level 101 mmol/L (98-107) Carbon Dioxide Level 13 mmol/L (20-31) Anion Gap 18 (5-15) Blood Urea Nitrogen 94 mg/dL (9-23) Creatinine 4.15 mg/dL (0.700-1.30) Glomerular Filtration Rate Calc 15 mL/min (>90) BUN/Creatinine Ratio 22.7 (10.0-20.0) Serum Glucose 101 mg/dL (74-106) Lactic Acid Level 1.8 mmol/L (0.4-2.0) Calcium Level 9.3 mg/dL (8.7-10.4) Total Bilirubin 8.5 mg/dL (0.2-1.0) Aspartate Amino Transferase (AST) 207 U/L (13-40) Alanine Aminotransferase (ALT) 106 U/L (7-40) Alkaline Phosphatase 107 U/L (46-116) Total Protein 6.7 g/dL (5.7-8.2) Albumin 3.2 g/dL (3.2-4.8) Ammonia < 10 umol/L (11-32) Test 01/18/25 17:10 01/18/25 15:36 01/18/25 11:26 Prothrombin Time 19.4 sec (9.3-11.8) Prothrombin Time INR 1.96 (0.9-1.15) Activated Partial Thromboplast Time 35.9 SEC (24.5-34.5) Magnesium Level 3.0 mg/dL (1.6-2.6) Lipase 92 U/L (12-53) Plasma/Serum Blood Alcohol < 3.0 mg/dL (<10) Troponin I High Sensitivity 4692 ng/L (</=54) Platelet Estimate Adequate Poikilocytosis (manual) Slight Anisocytosis (manual) Moderate Target Cells Few Schistocytes Few B-Type Natriuretic Peptide > 5000.00 pg/mL (0-100) Other Laboratory Tests 01/19/25 06:54 Brief Hx & Hospital Course: 64-year-old male with a known history of end-stage liver disease with alcoholic liver cirrhosis, congestive heart failure with systolic dysfunction with the EF of 30% with a global hypokinesis, chronic hypotension on midodrine at home, relative history of hypertension, cardiomyopathy, coronary artery disease who initially presented to the hospital with abdominal pain and poor appetite associated with nausea and decreased appetite found to have acute kidney injury with underlying CKD suspected hepatorenal syndrome. Also patient had evidence of pulmonary venous congestion as well as congestive heart failure with systolic dysfunction received one dose of IV Lasix. As patient has a hepatorenal syndrome portable machine sander recommended gentle hydration keeping in view of low ejection fraction. Patient's has ascites which was about to be evaluated for possible paracentesis if enough fluid once kidney function improves. Patient also has a high troponin which was thought secondary to NSTEMI type 2 , cardiology was consulted who does not recommend any inpatient workup. Also anticoagulation was not recommended keeping in view of his advanced alcoholic liver disease with coagulopathy. On the hydraulic press in operator of01/20, telegraph service rater found the patient going [place] down. Patient was found to be pulseless and apneic eventually code blue was called by with the code assisting team, on-call nurse practitioner ran the code. Full ACLS protocol was followed. Patient's never have return of spontaneous circulation during the phone ACLS protocol, eventually declared . Final Diagnosis/Problems List 1. Acute hypoxic respiratory failure 2. Cardiomyopathy 3. End-stage alcoholic liver disease Secondary Diagnosis: Coagulopathy Hepatorenal syndrome Discharge Disposition: at Hospital ROSE CROWE MD Jan 20, 2025 11:54
== END 2025-01-20 13:30 | DRG 279 ==
LOC: ER 10:45 → OVERFLOW 16:48 → TELE-WESTW 18:22
PROVIDERS: ATTEND Emergency Medicine
PROC: 5A12012 Performance of Cardiac Output, Single, Manual (ICD-10-PCS; principal; 2025-01-20)
PROC: 0BH17EZ Insertion of Endotracheal Airway into Trachea, Via Natural or Artificial Opening (ICD-10-PCS; 2025-01-20)
DX: K76.7 Hepatorenal syndrome (principal); J96.01 Acute respiratory failure with hypoxia; N17.0 Acute kidney failure with tubular necrosis; I50.23 Acute on chronic systolic (congestive) heart failure; E87.20 Acidosis, unspecified; D69.6 Thrombocytopenia, unspecified; D68.4 Acquired coagulation factor deficiency; I95.9 Hypotension, unspecified; I21.A1 Myocardial infarction type 2; K70.31 Alcoholic cirrhosis of liver with ascites; K72.10 Chronic hepatic failure without coma; I13.0 Hypertensive heart and chronic kidney disease with heart failure and stage 1 through stage 4 chronic kidney disease, or unspecified chronic kidney disease; N18.32 Chronic kidney disease, stage 3b; I25.10 Atherosclerotic heart disease of native coronary artery without angina pectoris; D64.9 Anemia, unspecified; K80.20 Calculus of gallbladder without cholecystitis without obstruction; R62.7 Adult failure to thrive; E11.22 Type 2 diabetes mellitus with diabetic chronic kidney disease; I42.9 Cardiomyopathy, unspecified; Z91.199 Patient's noncompliance with other medical treatment and regimen due to unspecified reason; Z79.82 Long term (current) use of aspirin; Z82.49 Family history of ischemic heart disease and other diseases of the circulatory system; Z79.899 Other long term (current) drug therapy; Z68.23 Body mass index [BMI] 23.0-23.9, adult
CPT/HCPCS: 31500; 36415; 71045; 74176; 76705; 80053; 80307; 80320; 81001; 82140; 82570; 82962; 83605; 83690; 83735; 83880; 83935; 84156; 84300; 84484; 85025; 85610; 85730; 87040; 87081; 87086; 92950; 93005; 96365; 96375; 99291; G0378; J0330; J2470; J7060; P9047